=== PATIENT | male | born 1970 | race Caucasian/White ===

== ENCOUNTER 2017-11-13 23:13 | Inpatient (IN) | payer OTHER ==
[2017-11-13] MEDS ORDERED: NS 1,000 ML IV ONE (23:51)
[2017-11-13] MEDS ORDERED: ONDANSETRON 4 MG/2 ML VIAL IVP ONE (23:51)
[2017-11-13 23:57] LABS: PLATELET COUNT 178 10^3/uL (150-400)
[2017-11-14] MEDS ORDERED: FAMOTIDINE 20 MG/2 ML SDV IVP ONE (00:09)
--- NOTE | 2017-11-14 00:28 | EDPHY ---
H & P Stated Complaint: "Severe nausea", vomitin, took probiotic pill then had n/v Time Seen by Provider: 11/13/17 23:40 HPI/ROS: HPI The patient presents with nausea, vomiting, abdominal pain. His nausea began this afternoon after taking a probiotic pill for the 1st time. He then ate dinner and at about 9:00 p.m. Several hours after eating he developed progressive diffuse upper abdominal pain associated with bloating which became quite severe and has now subsided somewhat. After the pain began he had multiple episodes of nonbloody emesis. His symptoms were associated with burping. His last bowel movement was at about 6:00 p.m. And was normal, not dark or bloody. He has no prior history of similar pain. He has started several months ago on a fasting diet in which he does not eat for 2-3 days. He has felt more fatigued than usual and also had calf pain. He had labs performed by his primary care doctor at [facility] which revealed anemia. He has been taking iron, B12 since the diagnosis of anemia. He began taking these probiotics to help with anemia. He also reports cough which is dry and worse at night. He does not have any chest pain. He stopped his fasting diet about 1 week ago. REVIEW OF SYSTEMS Constitutional: No fever, no chills. Eyes: No discharge. ENT: No sore throat. Cardiovascular: No chest pain, no palpitations. Respiratory: Positive cough, no shortness of breath. Gastrointestinal: See HPI Genitourinary: No hematuria. Musculoskeletal: No back pain. Skin: No rashes. Neurological: No headache. PMHx: Anemia, diagnosed a few weeks ago Soc Hx: Here with his partner PHYSICAL General Appearance: Alert, no distress Eyes: Pupils equal and round no pallor or injection ENT, Mouth: Mucous membranes moist Respiratory: There are no retractions, lungs are clear to auscultation Cardiovascular: Regular rate and rhythm , murmurs present Gastrointestinal: Abdomen is soft and mild tenderness in the epigastrium, no masses, bowel sounds normal Neurological: A&O, moves all extremities Skin: Warm and dry, no rashes Musculoskeletal: Neck is supple non tender Extremities: symmetrical, full range of motion Psychiatric: Patient is oriented X 3, there is no agitation Source: Patient Exam Limitations: No limitations - Personal History Current Tetanus Diphtheria and Acellular Pertussis (TDAP): No - Medical/Surgical History Hx Asthma: No Hx Chronic Respiratory Disease: No Hx Diabetes: No Hx Cardiac Disease: No Hx Renal Disease: No Hx Cirrhosis: No Hx Alcoholism: No Hx HIV/AIDS: No Hx Splenectomy or Spleen Trauma: No Other PMH: no immunizations - Social History Smoking Status: Never smoked Constitutional: Initial Vital Signs Temperature (C) 36.8 C 11/13/17 23:15 Heart Rate 73 11/13/17 23:15 Respiratory Rate 20 11/13/17 23:15 Blood Pressure 112/49 L 11/13/17 23:15 O2 Sat (%) 97 11/13/17 23:15 O2 Delivery Mode Room Air Allergies/Adverse Reactions: No Known Allergies Allergy (Unverified 11/13/17 23:14) Medical Decision Making - Diagnostics EKG Interpretation: EKG: Complete interpretation has been separately recorded in the [facility] archive. Summary impression: Normal sinus rhythm with T-wave inversions in lateral leads with leads V2 and V3 with biphasic T-waves. Imaging Results: Imaging Impressions Chest X-Ray 11/14/17 00:08 Impression: Early CHF. Suspect cardiomyopathy. A routine PA and lateral chest would be helpful, if and when the patient is clinically able. Imaging: I viewed and interpreted images myself Procedures: Bedside cardiac limited Ultrasound- performed and interpreted by me. Indication: Cough Findings: Dilated left ventricle with diminished EF, no pericardial effusion, IVC somewhat plethoric, there are no pulmonary B lines bilaterally Impression: Dilated LV with diminished ejection fraction Differential Diagnosis: 46-year-old male, recent diagnosis of anemia, possibly related to fasting diet he has been doing for the last months, now presents with nausea, vomiting, epigastric abdominal pain which is severe. He is feeling better currently. Differential diagnosis includes gastritis, pancreatitis, biliary colic, gastroenteritis, possible side-effect from new probiotic pill In the emergency department, IV line was established and the patient received Zofran. Basic labs were obtained. Labs were unremarkable. The patient felt somewhat better after medications though pain was still moderate in severity. I wrote for additional GI cocktail and famotidine which cause much improvement in his symptoms. A chest x-ray was performed because of his cough at night. This revealed cardiomegaly. Because of this, bedside echo was performed by myself which demonstrated dilated LV with diminished EF. This is concerning for new onset heart failure. Subsequently, BNP was found to be elevated at 3700, troponin was mildly elevated , EKG showed no ST segment change though did have a Wellens type pattern with T- wave inversions in lateral leads. I am not sure that the patient's epigastric pain relates to his new onset CHF. This could be purely incidental. I do not think the epigastric pain is cardiac , as he had epigastric tenderness, improvement with GI cocktail. Given new CHF with positive troponin and abnormal EKG I have consulted with the office administration production line assembler Dr. Prince who will see the patient in consultation later today. He recommends echo be ordered in the morning and to trend patient's troponins. I consulted with the [facility] doctor vivek and discussed the case with Ava, she recommends keeping the patient at the [facility] because of his elevated troponin. The patient was reluctant to be admitted to the hospital. I discussed the diagnosis and treatment plan with him and need for further testing. Eventually he agreed. The case was discussed with Dr. Jarvis who will admit the patient to his service. - Data Points Laboratory Results: Laboratory Results 11/13/17 23:35 11/13/17 23:35 11/14/17 11/13/17 11/13/17 00:00 23:35 23:35 WBC RBC Hgb Hct MCV MCH MCHC RDW Plt Count MPV Neut % (Auto) Lymph % (Auto) [place] % (Auto) Eos % (Auto) Baso % (Auto) Nucleat RBC Rel Count Absolute Neuts (auto) Absolute Lymphs (auto) Absolute Monos (auto) Absolute Eos (auto) Absolute Basos (auto) Absolute Nucleated RBC Immature Gran % Immature Gran # Sodium Potassium Chloride Carbon Dioxide Anion Gap BUN Creatinine Estimated GFR Glucose Calcium Phosphorus 3.9 mg/dL mg/dL (2.5-4.5) Magnesium 2.1 mg/dL mg/dL (1.6-2.3) Total Bilirubin Conjugated Bilirubin Unconjugated Bilirubin AST ALT Alkaline Phosphatase Troponin I 0.062 ng/mL H ng/mL (0.000-0.034) NT-Pro-B Natriuret Pep 3710 pg/mL H pg/mL (0-125) Total Protein Albumin Lipase TSH 2.200 uIU/mL uIU/mL (0.465-4.680) 07/03/18 07/03/18 23:35 23:35 WBC 8.71 10^3/uL 10^3/uL (3.80-9.50) RBC 3.70 10^6/uL L 10^6/uL (4.40-6.38) Hgb 10.6 g/dL L g/dL (13.7-17.5) Hct 31.7 % L % (40.0-51.0) MCV 85.7 fL fL (81.5-99.8) MCH 28.6 pg pg (27.9-34.1) MCHC 33.4 g/dL g/dL (32.4-36.7) RDW 14.6 % % (11.5-15.2) Plt Count 178 10^3/uL 10^3/uL (150-400) MPV 10.9 fL fL (8.7-11.7) Neut % (Auto) 75.3 % H % (39.3-74.2) Lymph % (Auto) 14.9 % L % (15.0-45.0) [place] % (Auto) 8.5 % % (4.5-13.0) Eos % (Auto) 0.7 % % (0.6-7.6) Baso % (Auto) 0.3 % % (0.3-1.7) Nucleat RBC Rel Count 0.0 % % (0.0-0.2) Absolute Neuts (auto) 6.55 10^3/uL H 10^3/uL (1.70-6.50) Absolute Lymphs (auto) 1.30 10^3/uL 10^3/uL (1.00-3.00) Absolute Monos (auto) 0.74 10^3/uL 10^3/uL (0.30-0.80) Absolute Eos (auto) 0.06 10^3/uL 10^3/uL (0.03-0.40) Absolute Basos (auto) 0.03 10^3/uL 10^3/uL (0.02-0.10) Absolute Nucleated RBC 0.00 10^3/uL 10^3/uL (0-0.01) Immature Gran % 0.3 % % (0.0-1.1) Immature Gran # 0.03 10^3/uL 10^3/uL (0.00-0.10) Sodium 136 mEq/L mEq/L (135-145) Potassium 4.2 mEq/L mEq/L (3.3-5.0) Chloride 105 mEq/L mEq/L (97-110) Carbon Dioxide 25 mEq/l mEq/l (22-31) Anion Gap 6 mEq/L L mEq/L (8-16) BUN 18 mg/dL mg/dL (7-23) Creatinine 1.1 mg/dL mg/dL (0.7-1.3) Estimated GFR > 60 Glucose 109 mg/dL H mg/dL (70-100) Calcium 8.7 mg/dL mg/dL (8.5-10.4) Phosphorus Magnesium Total Bilirubin 0.8 mg/dL mg/dL (0.1-1.4) Conjugated Bilirubin 0.4 mg/dL mg/dL (0.0-0.5) Unconjugated Bilirubin 0.4 mg/dL mg/dL (0.0-1.1) AST 21 IU/L IU/L (17-59) ALT 25 IU/L IU/L (21-72) Alkaline Phosphatase 77 IU/L IU/L (38-126) Troponin I NT-Pro-B Natriuret Pep Total Protein 7.0 g/dL g/dL (6.3-8.2) Albumin 3.4 g/dL L g/dL (3.5-5.0) Lipase 116 IU/L IU/L (23-300) TSH Medications Given: Discontinued Medications Al Hydroxide/Mg Hydroxide (Maalox Susp) 30 ml PO EDNOW ONE Stop: 11/14/17 01:26 Last Admin: 11/14/17 01:25 Dose: 30 ml Famotidine (Pepcid) 20 mg IVP EDNOW ONE Stop: 11/14/17 00:10 Last Admin: 11/14/17 00:27 Dose: 20 mg Hyoscyamine Sulfate (Levsin, Hyomax-Sl) 0.25 mg PO EDNOW ONE Stop: 11/14/17 01:24 Last Admin: 11/14/17 01:24 Dose: 0.25 mg Sodium Chloride (Ns) 1,000 mls @ 0 mls/hr IV ONCE ONE PRN Reason: Wide Open Stop: 11/13/17 23:52 Last Admin: 11/13/17 23:56 Dose: 1,000 mls Ketorolac Tromethamine (Toradol) 15 mg IVP EDNOW ONE Stop: 11/14/17 01:21 Last Admin: 11/14/17 01:21 Dose: 15 mg Lidocaine (Lidocaine 2% Viscous) 15 ml PO EDNOW ONE Stop: 11/14/17 01:25 Last Admin: 11/14/17 01:25 Dose: 15 ml Ondansetron HCl (Zofran) 4 mg IVP EDNOW ONE Stop: 11/13/17 23:52 Last Admin: 11/13/17 23:56 Dose: 4 mg Departure - Departure Disposition: [facility] Inpatient Acute Clinical Impression: Epigastric pain, Elevated troponin CHF exacerbation Qualifiers: Heart failure type: unspecified Qualified Code(s): I50.9 - Heart failure, unspecified Condition: Fair
[2017-11-14] MEDS ORDERED: MAG HYDROX/AL HYDROX/SIMETH 30 ML UDCUP ONE (01:20)
[2017-11-14] MEDS ORDERED: KETOROLAC 15 MG/1 ML SDV ONE (01:20)
[2017-11-14] MEDS ORDERED: LIDOCAINE 2% VISCOUS 15 ML UDCUP ONE (01:20)
[2017-11-14] MEDS ORDERED: HYOSCYAMINE SULFATE 0.125 MG TAB ONE (01:20)
[2017-11-14] MEDS ORDERED: KETOROLAC 15 MG/1 ML SDV IVP ONE (01:20)
[2017-11-14] MEDS ORDERED: HYOSCYAMINE SULFATE 0.125 MG TAB PO ONE (01:23)
[2017-11-14] MEDS ORDERED: LIDOCAINE 2% VISCOUS 15 ML UDCUP PO ONE (01:24)
[2017-11-14] MEDS ORDERED: MAG HYDROX/AL HYDROX/SIMETH 30 ML UDCUP PO ONE (01:25)
--- NOTE | 2017-11-14 03:00 | CPEKG ---
Heart Rate: 73 RR Interval: 822 P-R Interval: 236 QRSD Interval: 112 QT Interval: 400 QTC Interval: 441 P [place]: 48 QRS [place]: 1 T Wave [place]: 120 EKG Severity - ABNORMAL ECG - EKG Impression: SINUS RHYTHM EKG Impression: FIRST DEGREE AV BLOCK EKG Impression: NONSPECIFIC INTRAVENTRICULAR CONDUCTION DELAY Electronically Signed By: Devin Higuera 14-Nov-2017 07:41:17
[2017-11-14] MEDS ORDERED: ONDANSETRON DISINTEGRATING 4 MG TAB PO PRN (03:52)
--- NOTE | 2017-11-14 04:39 | PDGENHP ---
History and Physical - Chief Complaint Abdominal pain - History of Present Illness 46 yo M w/ no PMHx presents with abdominal pain. Patient tells me he had acute onset of severe abdominal pain around 4 PM. The pain progressed in severity until about 9 PM when he also began to vomit. He denies similar pain in the past. After arrival in the ED he experienced significant relief from GI cocktail. Work-up in the ED, however, was concerning from a cardiac standpoint. His ECG is abnormal with ST segment abnormalities throughout the precordium as well as interventricular conduction delay. His BNP is elevated and troponin in the indeterminate range. His CXR shows some vascular congestion. He denies prior history of cardiac disease. Upon further conversation it seems he has been undergoing an intensive fasting routine for the last few months. He will fast for 48 or 72 hours at a time with only single meals between fasting spells. Over the last month he has experienced dyspnea on exertion, night sweats, and was recently diagnosed with anemia by his PCP at [place]. He has had a new cough for the last week. Case discussed with ED physician Dr. Scales, no previous records available for review. Dr. Prince of cardiology was notified and will see the patient in the morning. History Information - Allergies/Home Medication List Allergies/Adverse Reactions: No Known Allergies Allergy (Unverified 11/13/17 23:14) I have personally reviewed and updated: family history, medical history - Past Medical History no pertinent PMH - Surgical History Additional surgical history: Denies - Family History Positive for: CAD (Grandfather had multiple FL's) - Social History Smoking Status: Never smoked Review of Systems Review of Systems: ROS: 10pt was reviewed & negative except for what was stated in HPI & below Physical Exam Physical Exam: Temp Pulse Resp BP Pulse Ox 36.8 C 80 16 102/58 L 94 11/13/17 23:15 11/14/17 03:55 11/14/17 03:55 11/14/17 03:55 11/14/17 03:55 Constitutional: no apparent distress, not in pain Eyes: PERRL, EOMI Ears, Nose, Mouth, Throat: moist mucous membranes, no oral mucosal ulcers Cardiovascular: regular rate and rhythym, systolic murmur (2/6 systolic murmur @ RUSB) Respiratory: no respiratory distress, clear to auscultation Gastrointestinal: normoactive bowel sounds, tenderness (Epi-gastric, mild), No guarding, No rebound, No distension Skin: warm, normal color Musculoskeletal: full muscle strength, no muscle tenderness Neurologic: AAOx3, CN II-XII Intact Psychiatric: interacting appropriately, not anxious Lab Data & Imaging Review 11/13/17 23:35 11/13/17 23:35 WBC 8.71 10^3/uL (3.80-9.50) 11/13/17 23:35 RBC 3.70 10^6/uL (4.40-6.38) L 11/13/17 23:35 Hgb 10.6 g/dL (13.7-17.5) L 11/13/17 23:35 Hct 31.7 % (40.0-51.0) L 11/13/17 23:35 MCV 85.7 fL (81.5-99.8) 11/13/17 23:35 MCH 28.6 pg (27.9-34.1) 11/13/17 23:35 MCHC 33.4 g/dL (32.4-36.7) 11/13/17 23:35 RDW 14.6 % (11.5-15.2) 11/13/17 23:35 Plt Count 178 10^3/uL (150-400) 11/13/17 23:35 MPV 10.9 fL (8.7-11.7) 11/13/17 23:35 Neut % (Auto) 75.3 % (39.3-74.2) H 11/13/17 23:35 Lymph % (Auto) 14.9 % (15.0-45.0) L 11/13/17 23:35 [place] % (Auto) 8.5 % (4.5-13.0) 11/13/17 23:35 Eos % (Auto) 0.7 % (0.6-7.6) 11/13/17 23:35 Baso % (Auto) 0.3 % (0.3-1.7) 11/13/17 23:35 Nucleat RBC Rel Count 0.0 % (0.0-0.2) 11/13/17 23:35 Absolute Neuts (auto) 6.55 10^3/uL (1.70-6.50) H 11/13/17 23:35 Absolute Lymphs (auto) 1.30 10^3/uL (1.00-3.00) 11/13/17 23:35 Absolute Monos (auto) 0.74 10^3/uL (0.30-0.80) 11/13/17 23:35 Absolute Eos (auto) 0.06 10^3/uL (0.03-0.40) 11/13/17 23:35 Absolute Basos (auto) 0.03 10^3/uL (0.02-0.10) 11/13/17 23:35 Absolute Nucleated RBC 0.00 10^3/uL (0-0.01) 11/13/17 23:35 Immature Gran % 0.3 % (0.0-1.1) 11/13/17 23:35 Immature Gran # 0.03 10^3/uL (0.00-0.10) 11/13/17 23:35 Sodium 136 mEq/L (135-145) 11/13/17 23:35 Potassium 4.2 mEq/L (3.3-5.0) 11/13/17 23:35 Chloride 105 mEq/L (97-110) 11/13/17 23:35 Carbon Dioxide 25 mEq/l (22-31) 11/13/17 23:35 Anion Gap 6 mEq/L (8-16) L 11/13/17 23:35 BUN 18 mg/dL (7-23) 11/13/17 23:35 Creatinine 1.1 mg/dL (0.7-1.3) 11/13/17 23:35 Estimated GFR > 60 11/13/17 23:35 Glucose 109 mg/dL (70-100) H 11/13/17 23:35 Calcium 8.7 mg/dL (8.5-10.4) 11/13/17 23:35 Magnesium 2.1 mg/dL (1.6-2.3) 11/14/17 00:00 Total Bilirubin 0.8 mg/dL (0.1-1.4) 11/13/17 23:35 Conjugated Bilirubin 0.4 mg/dL (0.0-0.5) 11/13/17 23:35 Unconjugated Bilirubin 0.4 mg/dL (0.0-1.1) 11/13/17 23:35 AST 21 IU/L (17-59) 11/13/17 23:35 ALT 25 IU/L (21-72) 11/13/17 23:35 Alkaline Phosphatase 77 IU/L (38-126) 11/13/17 23:35 Troponin I 0.062 ng/mL (0.000-0.034) H 11/13/17 23:35 NT-Pro-B Natriuret Pep 3710 pg/mL (0-125) H 11/13/17 23:35 Total Protein 7.0 g/dL (6.3-8.2) 11/13/17 23:35 Albumin 3.4 g/dL (3.5-5.0) L 11/13/17 23:35 Lipase 116 IU/L (23-300) 11/13/17 23:35 TSH 2.200 uIU/mL (0.465-4.680) 11/13/17 23:35 Visualized and Interpreted Chest x-ray results: Yes Chest X-Ray results: other (Vascular congestion) Visualized and Interpreted EKG results: Yes EKG Interpretation: Positive for: normal sinsus rhythm, NS ST wave abnormalities , other (IV conduction delay), T waves inversion (Pre-cordial leads) Assessment & Plan Assessment: 46 yo M w/ no PMHx presents with abdominal pain and found to have abnormal cardiac work-up after several months of intensive, intermittent fasting. Plan: 1. Abdominal pain - Severe abdominal pain associated with vomiting and relieved by GI cocktail; suggestive of gastritis/PUD. His abdominal exam is reassuring and LFTs are normal. Noting abnormal cardiac work-up (discussed below), it is also possible this could be an anginal equivalent but this seems less likely. - Will start PPI, cardiac work-up as below 2. Suspected new CHF - Suspected on the basis of 1 month of dyspnea on exertion , elevated BNP, and abnormal ECG. He appears well compensated on exam, however. CXR shows only mild vascular congestion(personally interpreted). This could be related to several months of intensive fasting routine. He also has a systolic murmur on exam, so valvular disease could also be contributing. - TSH normal - TTE ordered for further evaluation - ACS r/o as below - Cardiology service (Dr. Prince) consulted, appreciate assistance 3. Indeterminate troponin - Troponin .062 on admission labs; presenting with abdominal pain but unclear if this could be anginal equivalent. He has an abnormal ECG(personally interpreted) with T wave abnormalities throughout precordial leads and HUGO's in V2/V3 (suspect J point elevation). ECG also shows intraventricular conduction delay. - Admit to PCU - Monitor on telemetry - Trend cardiac enzymes - TTE as above - Cardiology consulted 4. Anemia - Diagnosed by his PCP recently. He has been receiving iron and B12 for this. Diet - NPO Code - Full Ppx - LMWH Dispo - Admit to PCU under observation status
[2017-11-14] MEDS ORDERED: ENOXAPARIN 40 MG/0.4 ML SYR SC SCH (09:00)
[2017-11-14] MEDS ORDERED: PANTOPRAZOLE SODIUM 40 MG TAB PO SCH (09:00)
--- NOTE | 2017-11-14 10:17 | PDCARCONS ---
Cardiology Consult Reason for Consult: Abdominal pain, elevated troponin, elevated brain natriuretic peptide. Chief Complaint: Abdominal pain. Requesting Physician: Dr. Jarvis. 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 He has no history of cardiovascular disease either in the form of ischemic heart disease, structural heart disease or arrhythmic heart disease. He notes that at his baseline he is a very healthy individual. He likes to exercise at least 6 days a week. He does a combination of weight training, running and hiking. He generally feels excellent without complaints. He notes that for about 1 month now he has had symptoms of "drenching" night sweats. These occur, at this point, every night. Sometimes he will need to get up 2 or 3 times to change his clothes. With these, he has not had shaking chills. He has also noted a dry cough which also tends to occur at night although sometimes in the day. There has not been substantial sputum production. Recently he has also had symptoms of exercise intolerance and exertional dyspnea. He is normally able to run on his treadmill nearly on limited. The last time he tried to uses treadmill he was only able to go for about 1/2 mi before he became fatigued and short of breath. He did not have associated chest pain. His heart rate has been higher than normal. Typically his resting heart rate is in the 60s. He has noted that here recently his resting heart rate has been between 75 and 95 beats per minute. He has not had any rash. He has not had any recent surgeries or instrumentation. He gives no history of orthopnea, PND or edema. Since mid August he has been aggressively fasting. Often times he will fast for 48-72 hours at a time. He will then eat for about 4 hr and then resume the cycle. He has been using a great deal of supplements as well as apple cider vinegar during his fasting. He has been trying to maintain hydration. He has lost about 30 lb altogether and currently is near his base weight. He states this has resulted in him feeling really well. He was seen at [facility] ago with severe leg cramps. This was noted in his right leg. Apparently had an ultrasound at that time that was noted to be negative. 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 Apparently, he travels a great deal and has been across the an entire [place] as well as throughout [place]. He has not had any sick contacts. He came to the emergency department yesterday in the early hours of the morning because he developed severe abdominal discomfort. Apparently, he has been trying to come off of his fast and as a result has been trying probiotic therapy to help him as he eats more food. Yesterday during the day he developed nausea. This occurred throughout the day. In the early hours of the morning he developed abrupt abdominal discomfort described as 15/10 in intensity localized to the left upper quadrant. Shortly after this he had significant vomiting. He had no hematemesis. He had no diarrhea or melena. In the emergency department he was hemodynamically stable. His abdominal discomfort improved following the administration of a GI cocktail. Today he has very mild abdominal pain. History Information - Allergies/Home Medication List Allergies/Adverse Reactions: No Known Allergies Allergy (Unverified 11/13/17 23:14) Home Medications: NK [No Known Home Meds] 11/14/17 [Last Taken Unknown] I have personally reviewed and updated: family history, medical history, social history, surgical history Past Medical History: - Past Medical History no pertinent PMH - Surgical History Reports: no pertinent surgical hx - Family History Additional family history: His grandfather apparently had multiple myocardial infarctions and ultimately succumbed to a AAA. - Social History Smoking Status: Never smoked Alcohol Use: Rarely Drug Use: None Additional social history: He is . He is accompanied by his . They have 2 children together 1 who is 18 another who is 15. 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 As stated above, he is very active and exercises at least 6/7 days a week. He does travel a great deal. Physical Exam Physical Exam: Temp Pulse Resp BP Pulse Ox 36.8 C 79 16 117/52 L 96 11/14/17 08:45 11/14/17 08:45 11/14/17 08:45 11/14/17 08:45 11/14/17 08:45 O2 (L/minute) 2 Constitutional: no apparent distress, appears nourished, not in pain Eyes: PERRL, anicteric sclera, EOMI Ears, Nose, Mouth, Throat: moist mucous membranes, hearing normal, ears appear normal, no oral mucosal ulcers Cardiovascular: regular rate and rhythym, diastolic murmur (2/6 holodiastolic murmur heard best at the left sternal border; 2/6 diastolic murmur appreciated at the apex), JVD (To the mid neck at 60 degrees), other (Loud 3rd heart sound) , No edema Respiratory: no respiratory distress, other (Bibasilar fine rales) Gastrointestinal: normoactive bowel sounds, soft, non-tender abdomen, no palpable masses Genitourinary: no bladder fullness, no bladder tenderness Skin: warm, normal color, no fluctuance, no induration, other (He has a small Janeway is lesion appreciated on his right palmar aspect of the middle finger), No mottled Musculoskeletal: full muscle strength, no muscle tenderness, normal joint ROM, no joint effusions Psychiatric: interacting appropriately, not anxious, not encephalopathic, thought process linear Lymph, Heme, Immunologic: no cervical LAD, no supraclavicular LAD Lab and Imaging 11/13/17 23:35 11/13/17 23:35 WBC 8.71 10^3/uL (3.80-9.50) 11/13/17 23:35 RBC 3.70 10^6/uL (4.40-6.38) L 11/13/17 23:35 Hgb 10.6 g/dL (13.7-17.5) L 11/13/17 23:35 Hct 31.7 % (40.0-51.0) L 11/13/17 23:35 MCV 85.7 fL (81.5-99.8) 11/13/17 23:35 MCH 28.6 pg (27.9-34.1) 11/13/17 23:35 MCHC 33.4 g/dL (32.4-36.7) 11/13/17 23:35 RDW 14.6 % (11.5-15.2) 11/13/17 23:35 Plt Count 178 10^3/uL (150-400) 11/13/17 23:35 MPV 10.9 fL (8.7-11.7) 11/13/17 23:35 Neut % (Auto) 75.3 % (39.3-74.2) H 11/13/17 23:35 Lymph % (Auto) 14.9 % (15.0-45.0) L 11/13/17 23:35 Payne % (Auto) 8.5 % (4.5-13.0) 11/13/17 23:35 Eos % (Auto) 0.7 % (0.6-7.6) 11/13/17 23:35 Baso % (Auto) 0.3 % (0.3-1.7) 11/13/17 23:35 Nucleat RBC Rel Count 0.0 % (0.0-0.2) 11/13/17 23:35 Absolute Neuts (auto) 6.55 10^3/uL (1.70-6.50) H 11/13/17 23:35 Absolute Lymphs (auto) 1.30 10^3/uL (1.00-3.00) 11/13/17 23:35 Absolute Monos (auto) 0.74 10^3/uL (0.30-0.80) 11/13/17 23:35 Absolute Eos (auto) 0.06 10^3/uL (0.03-0.40) 11/13/17 23:35 Absolute Basos (auto) 0.03 10^3/uL (0.02-0.10) 11/13/17 23:35 Absolute Nucleated RBC 0.00 10^3/uL (0-0.01) 11/13/17 23:35 Immature Gran % 0.3 % (0.0-1.1) 11/13/17 23:35 Immature Gran # 0.03 10^3/uL (0.00-0.10) 11/13/17 23:35 Sodium 136 mEq/L (135-145) 11/13/17 23:35 Potassium 4.2 mEq/L (3.3-5.0) 11/13/17 23:35 Chloride 105 mEq/L (97-110) 11/13/17 23:35 Carbon Dioxide 25 mEq/l (22-31) 11/13/17 23:35 Anion Gap 6 mEq/L (8-16) L 11/13/17 23:35 BUN 18 mg/dL (7-23) 11/13/17 23:35 Creatinine 1.1 mg/dL (0.7-1.3) 11/13/17 23:35 Estimated GFR > 60 11/13/17 23:35 Glucose 109 mg/dL (70-100) H 11/13/17 23:35 Calcium 8.7 mg/dL (8.5-10.4) 11/13/17 23:35 Phosphorus 3.9 mg/dL (2.5-4.5) 11/13/17 23:35 Magnesium 2.1 mg/dL (1.6-2.3) 11/14/17 00:00 Total Bilirubin 0.8 mg/dL (0.1-1.4) 11/13/17 23:35 Conjugated Bilirubin 0.4 mg/dL (0.0-0.5) 11/13/17 23:35 Unconjugated Bilirubin 0.4 mg/dL (0.0-1.1) 11/13/17 23:35 AST 21 IU/L (17-59) 11/13/17 23:35 ALT 25 IU/L (21-72) 11/13/17 23:35 Alkaline Phosphatase 77 IU/L (38-126) 11/13/17 23:35 Troponin I 0.058 ng/mL (0.000-0.034) H 11/14/17 06:53 NT-Pro-B Natriuret Pep 3710 pg/mL (0-125) H 11/13/17 23:35 Total Protein 7.0 g/dL (6.3-8.2) 11/13/17 23:35 Albumin 3.4 g/dL (3.5-5.0) L 11/13/17 23:35 Lipase 116 IU/L (23-300) 11/13/17 23:35 TSH 2.200 uIU/mL (0.465-4.680) 11/13/17 23:35 Visualized and Interpreted Chest x-ray results: Yes Chest X-ray Interpretation: other (Cardiomegaly with early congestive heart failure) Visualized and Interpreted EKG results: Yes EKG additional interpertation: Normal sinus rhythm, first-degree AV block, nonspecific IVCD, ST/T changes consistent with the IVCD Telemetry: Normal sinus rhythm. Echocardiogram: Pending. A/P Assessment: 46-year-old male who initially came to the emergency department with complaints of relatively abrupt onset left upper quadrant abdominal pain associated with nausea and vomiting. Historically, he states that he has been experiencing a 1 month history of night sweats associated with symptoms of exercise intolerance, cough and dyspnea on exertion. On examination he has findings that suggest significant aortic insufficiency. Additionally, cutaneous findings indicate the presence of a Janeway lesion. Historically, he also states that he has had a diagnosis of anemia however was told that his ferritin levels were elevated. These constellation of findings suggest the probability of endocarditis involving the aortic valve. Fortunately, he appears to be stable with only mild congestive heart failure. His electrocardiogram is, however, concerning given the fact that he has a first-degree AV block and a nonspecific IVCD. These findings may suggest early abscess formation. His abdominal discomfort has improved. I wonder if this might be a result of embolic phenomena to the spleen or potentially kidney. He did have a slight troponin elevation. I think this is a reflection of myocardial strain in the setting of aortic insufficiency. He has no indication of acute ischemia. Plan: 1. He will have an echocardiogram today. 2. We will draw blood cultures. 3. Infectious Disease will be consulted. I suspect that he will be started on antibiotics. 4. I think he would benefit from a CT scan of the abdomen and pelvis to evaluate for embolic phenomena. 5. His anemia will be worked up by the hospitalist care team. I suspect that his anemia is related to the underlying infectious process. Depending on the findings from his workup he may, however, benefit from consultation with GI and consideration of a more formal gastroenterologic evaluation. 6. Daily electrocardiograms will be ordered and he will be monitored on telemetry. 7. I think he would benefit from transesophageal echocardiography. 8. We will plan to consult cardiovascular surgery depending on the results of his echocardiogram. 9. I will start him on a low-dose of oral Lasix and we will follow his electrolytes daily. 10. We will follow along with you. Review of Systems Review of Systems: - Review of Systems Constitutional: see HPI EENTM: no symptoms reported Respiratory: see HPI Cardiac: no symptoms reported Gastrointestinal/Abdominal: see HPI Genitourinary: no symptoms Musculoskelatal: no symptoms Skin: no symptoms Neurological: no symptoms Hematologic/Lymphatic: see HPI Immunologic/allergic: see HPI All Other Systems: Reviewed and Negative
--- NOTE | 2017-11-14 10:44 | ECHO ---
[email or web address] [address] [address] Main: [phone] Fax: Transthoracic Echocardiogram Name: TI CALLAHAN MR#: [id number] Study Date: 11/14/2017 Study Time: 09:23 AM Date of : 1970 Age: 46 year(s) Height: 177.8 cm (70 in.) Weight: 83.92 kg (185 lb.) BSA: 2.02 m2 Gender: Male Examination: Echo Indication: Elevated BNP, Murmur Image Quality: Contrast: Requested by: Gil Clayton BP: 117 mmHg/52 mmHg Heart Rate: Rhythm: Normal sinus rhythm Indication: Elevated BNP, Murmur Procedure Staff Quality Assurance Director: Jude Armenta RDCS Reading Physician: Ti Prince MD Requesting Provider: Conclusions: The patient was in sinus rhythm at the time the study. The left ventricle appears to be mildly dilated and globular in appearance. The ejection fraction is preserved estimated at 60-65%. Wall motion is noted to be normal. The right ventricle and right atrial dimensions are normal. Right ventricular systolic function is normal. There is mild left atrial enlargement. The morphology of the aortic valve is difficult to delineate however may be a bicuspid valve. The anterior leaflet is highly echo bright which may represent calcification or potentially dense vegetation. In some views, this area of echodensity appears to extend into the annulus and may represent abscess formation. There is a small, highly mobile echodensity adherent to the ventricular side of the posterior leaflet likely representing a vegetation. A large Lambl's excrescence cannot be excluded. This is associated with torrential aortic insufficiency. There is no evidence of stenosis. The remainder of the cardiac valves appeared to be structurally normal. There is trivial mitral and tricuspid insufficiency. A small pericardial effusion is present. Measurements: Chambers Valvular Assessment AV/MV Valvular Assessment TV/PV Normal Normal Normal Name Value Range Name Value Range Name Value Range Ao Yudy (2D): 2.3 cm (1.4 cm-2.6 AV meanP mmHg ( - ) PV Vmax: 1.22 m/s (0.6 m/s-0.9 cm) IRAM (VTI): 1.9 cm ( - ) m/s) IVSd (2D): 1.0 cm (0.6 cm-1.1 AR (PHT): 156 ms ( - ) PV PGmax: 6 mmHg ( - ) cm) MV E Vmax: 0.85 m/s ( - ) LVDd (2D): 6.6 cm (4.2 cm-5.9 cm) LVDs (2D): 4.1 cm (2.1 cm-4 cm) LVPWd (2D): 1.0 cm (0.6 cm-1 cm) LVOTd 2.1 cm 2.1 cm mm LVEF (2D): 66 (>=54 %) Patient: TI CALLAHAN Study Date: 11/14/2017 Page 1 of 2 09:23 AM Continued Measurements: Chambers Valvular Assessment AV/MV Name Value Name Value LADs Lon.6 cm AR Vmax: 4.71 cm/s LA Area: 27.2 cm2 AR ERO: 1.750 cm2 LA Volume: 111 ml AR PISA radius: 2.2 cm LA Volume Index: 55.0 ml/m2 AR Reg. Volume: 222.0 ml AR Reg. Fraction: 182 % AR VTI: 127.0 cm Findings: Left Ventricle: Mildly dilated left ventricle. No LV hypertrophy. Normal global systolic LV function. EF is 66 %. No regional wall motion abnormality. Right Ventricle: Normal size right ventricle. Normal RV function. Left Atrium: The left atrium is mildly dilated. Right Atrium: The right atrium is normal in size. Mitral Valve: The mitral valve is normal in appearance and function. Trivial mitral valve regurgitation. Aortic Valve: Cannot rule out bicuspid aortic valve. There is a probable aortic valve vegetation. There is a probable aortic valve abscess. There is torrental aortic insufficiency.. Tricuspid Valve: The tricuspid valve appears normal. Trivial tricuspid valve regurgitation. Pulmonic Valve: The pulmonic valve is normal in appearance and function. Aorta: The aorta is normal. Pericardium: Small pericardial effusion. No echocardiographic evidence of hemodynamic compromise. Exam Comments: A ANAND exam is clinically indicated.. (No Signature Object) Patient: TI CALLAHAN Study Date: 11/14/2017 Page 2 of 2 09:23 AM [id number]
--- NOTE | 2017-11-14 11:47 | ASMTCMCOM ---
CM Note CM Note Notes: Chart reviewed, discussed patient case in rounds. New diagnosis of endocarditis. CVS consulted. Patient to transfer to ICU for closer monitoring. BC sent, CT pending. Spoke with Cha at [facility] [phone] and they are aware of patient's current condition and need for critical care, CM to follow. Plan: TBD Date Signed: 11/14/2017 11:46 AM Electronically Signed By:Pallavi Dove RN
--- NOTE | 2017-11-14 12:16 | HOSPPROG ---
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 Objective: Vital Signs Temp Pulse Resp BP Pulse Ox 36.8 C 79 16 117/52 L 96 11/14/17 08:45 11/14/17 08:45 11/14/17 08:45 11/14/17 08:45 11/14/17 08:45 11/13/17 11/14/17 11/15/17 05:59 05:59 05:59 Intake Total 1000 Output Total 400 Balance 1000 -400 d/w Dr. Prince and Dr. Lopez regarding possible endocarditis Laboratory Tests 11/13/17 11/13/17 11/14/17 23:35 23:35 06:53 WBC 8.71 Hct 31.7 L Plt Count 178 Troponin I 0.062 H 0.058 H NT-Pro-B Natriuret Pep 3710 H ECHO - torrential AI with vegetation - Physical Exam Constitutional: no apparent distress, appears nourished, not in pain Cardiovascular: regular rate and rhythym, systolic murmur, No JVD, No edema Respiratory: no respiratory distress, no rales or rhonchi, clear to auscultation Gastrointestinal: normoactive bowel sounds, soft, non-tender abdomen, no palpable masses Skin: no rashes or abrasions, no fluctuance, no induration Neurologic: AAOx3, sensation intact bilaterally Psychiatric: interacting appropriately, not anxious, not encephalopathic, thought process linear ICD10 Worksheet Patient Problems: Problems Problem Status Onset CHF exacerbation Acute Elevated troponin Acute Epigastric pain Acute
[2017-11-14] MEDS: FUROSEMIDE 20 MG TAB PO SCH (12:29)
[2017-11-14] MEDS ORDERED: VANCOMYCIN 1.25 GM in NS 250 ML IV SCH (12:30)
[2017-11-14] MEDS ORDERED: IOPAMIDOL (ISOVUE-300) 100 ML BTL ONE (13:29)
--- NOTE | 2017-11-14 15:10 | GCON ---
[f rep st] CONSULTATION DATE OF CONSULTATION: 11/14/2017 REFERRING PHYSICIAN: Ti Prince MD NOTE: The patient was seen at the request of Dr. Prince, with the patient's permission. IMPRESSION: Presumed aortic valve endocarditis, with severe aortic insufficiency, class 3 congestive heart failure, and evidence of extension into the annular tissues, with early intraventricular condu ction delay. RECOMMENDATIONS: This gentleman presents with a rather urgent nature, presenting with congestive hea rt failure, with wide-open aortic insufficiency and a presumed bicuspid aortic valve. He does have e vidence of aortic root and ascending aorta enlargement on echocardiogram, and I suspect that he has b icuspid pathologies underlying the disease. He had no known history of this prior to this admission. CT scans of the chest, abdomen, and pelvis are being performed at this time. We will follow his co nduction issues quite closely. Antibiotics have been begun. It is usually better to proceed earlier than later in patients with evidence of perivalvular extension and conduction disturbance. Obviousl y, we do not want to wait until complete heart block or a fistula evolves. I advised him that he wou ld likely end up with a bioprosthesis and a possible homograft, depending upon findings. I have orde red a homograft with an extended aorta in order to replace his ascending aorta if, in fact, that is a t all enlarged, given his aortopathy with bicuspid aortic valve disease. At this young age, I would not put a graft of synthetic material in, and I would not leave him with a moderately enlarged aorta at the time of root replacement if that becomes necessary. I did advise them that the surgical morta lity probably approaches 5% or 6%, that recurrence of infection is around 5%, that stroke is increase d because of the vegetation that is mobile, and that these will be minimized by earlier intervention. His was present, as was his extended family. All questions were addressed. Given his conduct ion issues and presentation in congestive heart failure, I do agree he should be watched in the ICU a nd medically stabilized, and he is not currently stable for transfer. They are in agreement with rosa brewer. His father is a pathologist, and I will speak to him directly. CHIEF COMPLAINT: Approximately 6-week history of febrile illness, with night sweats. HISTORY OF PRESENT ILLNESS: He had been evaluated as an outpatient by his [facility] physicians, who cou ld not explain his elevated ferritin levels, anemia, or night sweats. He has had a 30-pound weight l oss over the last several months, which is intentional by extreme dieting and exercise. He did notic e a decrease in his exercise capacity and actually presented with marked abdominal pain yesterday as his presenting complaint. Echocardiogram reveals a mobile subvalvular mass and what appears to be an nular extension of an abscess cavity, affecting his conduction system. There is no evidence of tricu spid, mitral, or pulmonic valve involvement at this time. Overall, ventricular function is preserved . His medical history is relatively unremarkable. He has no known allergies. He was on no medicati ons. Currently, antibiotics have been begun. 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 His troponin level is slightly elevated. His glucose is slightly elevated. CO 2 was 25. Renal function is well preserved. His white count was normal. Hematocrit was 31.7. PHYSICAL EXAMINATION: GENERAL: An alert, cooperative, calm, middle-aged gentleman, in no apparent d istress. VITAL SIGNS: Blood pressure 120/47, pulse 82, respirations 18, O2 saturation 97% on room a ir. HEENT: Normocephalic. PERRLA. EOMI. NECK: Without bruit, adenopathy, or thyromegaly. Teeth are in good repair. He has no complaints. CARDIOVASCULAR: Heart rate reveals a murmur across the precordium, consistent with diastolic regurgitation. LUNGS: Basilar crackles. ABDOMEN: Soft, nont bacilio. Bowel sounds are active. RECTAL: Deferred. GENITAL: Deferred. NEUROLOGICAL: He is gross ly intact. EXTREMITIES: He has no peripheral edema. No varicosities. LABORATORY STUDIES/DATA: Chest x-ray reveals 4-chamber cardiomegaly, plethoric pulmonary vasculature , with some Luzmaria B lines present. There is no alveolar pulmonary edema or pleural effusions. /[id number]/MODL
--- NOTE | 2017-11-14 15:31 | GCON ---
[f rep st] CONSULTATION DATE OF CONSULTATION: 11/14/2017 REFERRING PHYSICIAN: Krystal Prather MD REASON FOR CONSULTATION: Probable endocarditis with possible valve ring abscess. HISTORY OF PRESENT ILLNESS: The patient is a 46-year-old male without significant past medical history, whom I am asked to see in consultation for probable aortic valve endocarditis with aortic valve ring abscess. The patient describes developing drenching night sweats approximately 4 to 5 weeks ago. This was associated with development of dyspnea on exertion and decreased exercise tolerance. He did not note having fever or chills. Around the same time, he had significant cramps in his right calf, prompting evaluation at an outside facility. The patient notes that he was found to be anemic and have an elevated ferritin at that time. He was advised to have endoscopy. The cramps have now subsequently resolved. He has not experienced lower extremity edema. The patient does describe having a cough at nighttime with clear sputum production. He does not describe orthopnea or PND. The patient has not experienced skin rash, nausea, vomiting or diarrhea. Yesterday, he developed abrupt onset of significant abdominal pain, which ultimately prompted his evaluation in the emergency department. The patient notes that he has been fasting for several weeks where he will not eat for 48 to 72 hours at a time. Subsequently, he will eat and then resume fasting. He has not included enemas as part of his fast. The patient notes that his abdominal pain began yesterday after he took a single dose of probiotics. After development of abdominal pain , he then developed significant vomiting which was uncontrollable. All of these resolved after receiving a "GI cocktail" in the emergency department. Given his dyspnea and decreased exercise tolerance, echocardiogram was performed , which revealed findings consistent with aortic valve endocarditis; these included the possibility of underlying bicuspid aortic valve with possible vegetation on the anterior leaflet, with concern this extends to the anulus and may be consistent with abscess formation; additionally, a mobile echodensity is also present on the posterior leaflet, felt to represent vegetation. He is also noted to have torrential AI. EKG was performed, and shows evidence of intraventricular conduction delay and prolonged NH interval. Based on findings suggestive of endocarditis, blood cultures were obtained, and initiation of empiric antibiotics was begun. The patient does not note any recent dental problems or dental work. He has not had any problems with skin infection. There were some rabbit carcasses on his property, but he did not handle or interact with these. He did attend an event where a petting zoo was present, but he did not interact with the animals, and his night sweats were already in existence. 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 He also has traveled to the [place]. No known prior history of valvular abnormality. Based on the above findings, I am now asked to assist in his ongoing management. PAST MEDICAL HISTORY: Unremarkable. PAST SURGICAL HISTORY: Unremarkable. CURRENT MEDICATIONS: Lasix 20 mg orally daily, vancomycin 1.25 g IV q.12 h., and ceftriaxone 2 g IV daily. ALLERGIES: No known drug allergies. SOCIAL HISTORY: The patient does not smoke. He drinks alcohol occasionally. 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 Travel as outlined above. There is a pet dog at home. The dog was not noted to have any contact with the animal carcasses. FAMILY HISTORY: Cousin with factor V Leiden deficiency; no known history of valvular abnormalities. REVIEW OF SYSTEMS: Outside that noted in the HPI, the remainder of 10-system review is unremarkable except for weight loss. PHYSICAL EXAMINATION: VITAL SIGNS: Temperature 36.8, heart rate 82, respiratory rate 18, blood pressure 120/47, and oxygen saturation 97% on room air. GENERAL: The patient is well nourished, well developed, and in no acute distress. He appears nontoxic. HEENT: There is no scleral icterus, conjunctival injection, or conjunctival petechiae. Oropharynx shows moist mucous membranes, with dentition being in good repair. There is no nasal discharge. There is no tenderness over the frontal, maxillary, or mastoid area. NECK: Supple without palpable lymphadenopathy or thyromegaly. CHEST: Bibasilar crackles. The respiratory effort is normal. CARDIOVASCULAR: Regular rate and rhythm with a 2/4 diastolic murmur heard throughout. No rubs are noted. ABDOMEN: Soft, nontender, and nondistended. There is no palpable organomegaly. Bowel sounds are present. MUSCULOSKELETAL: There is no cyanosis , clubbing, or edema. There is no tenderness over the right calf. SKIN: No rashes noted. There is a small splinter present in the pad of the right third finger; I do not appreciate stigmata of endocarditis otherwise. There are no splinter hemorrhages, Janeway lesions, or Osler nodes. LYMPHATICS: No cervical or supraclavicular nodes. NEUROLOGIC: The patient is alert and interacts appropriately with the examiner. Cranial nerves 2 through 12 are grossly intact. Muscle tone and bulk are normal. Sensation is grossly intact. LABORATORY DATA: White blood cell count 8.7, hematocrit 31.7, platelets 178, neutrophils 75%, lymphocytes 15%, and MCV 86. Serum creatinine is 1.1. AST 21, ALT 25, bilirubin 0.8, alkaline phosphatase 77, and albumin 3.4. TSH 2.2. Troponin 0.58. Blood cultures x3 sets are pending. Echocardiogram as outlined above. EKG as outlined above. Chest x-ray shows increased vascular markings. IMPRESSION: Endocarditis of the aortic valve with possible valve ring abscess: Clinical findings are consistent with subacute bacterial endocarditis. Suspect the patient has underlying bicuspid aortic valve, with most likely etiology given subacute presentation being oropharyngeal lauren such as Streptococcus viridans species. Less likely would be related to Staphylococcus aureus or beta-hemolytic streptococci, which typically present in more acute fashion. Enterococcus would also be a consideration based on the patient's previous decreased iron level with potential for gastrointestinal source. HACEK organisms also consideration. Pathogens associated with culture negative endocarditis seem less likely. Abdominal symptoms of yesterday could potentially be related to embolic phenomena for which CT scan has been ordered. RECOMMENDATIONS: 1. Increase vancomycin 1.5 g IV q.12 h. 2. Continue ceftriaxone 2 g IV daily. 3. Follow up blood cultures as available. 4. Agree with plans for CT of abdomen and pelvis. 5. CT Surgery consultation given likelihood the patient may require surgical management, particularly if valve ring abscess is present. 6. Await transesophageal echocardiogram to further define transthoracic echocardiographic findings. 7. Clinical findings and plan discussed with the patient, family, and Dr. Franklin. Thank you for this consultation. We will continue to follow the patient with you. /[id number]/MODL MTDD
--- NOTE | 2017-11-14 16:50 | GCON ---
[f rep st] CONSULTATION CRITICAL CARE CONSULTATION. DATE OF CONSULTATION: 11/14/2017 HISTORY OF PRESENT ILLNESS: This patient is a 46-year-old male with no past medical history, who pre sents to the emergency department earlier this morning with abdominal pain. He does travel some, but has not had no history of venous thromboembolic disease in the past. He was recently diagnosed with iron deficiency anemia, but apparently his ferritin was quite high and no obvious cause was delineat ed. He was to get a GI followup, but that had yet to occur. He said he has been exercising fairly r egularly over the past 4 weeks after the anemia was diagnosed, until he developed this pain. He subs equently came to the emergency department. He has also been experiencing worsening exertional dyspne a, as well as night sweats and had a new cough that was generally nonproductive. He was found to hav e aortic valve vegetations and ring abscess on echocardiogram, and is thought to have endocarditis. He has also had issues of conduction delay and was therefore transferred to the intensive care unit f or closer monitoring. Blood cultures are pending at this time. His workup also included a chest CT scan that said there was a small area of infiltrate in the anterior segment of the right lower lobe w ith surrounding infiltrate suggestive of possible septic emboli, though the rest of his echo was norm al on the right side. He does not have any other history that would be consistent with endocarditis, such as trauma or skin abrasions or recent dental work or IV drug use. Otherwise, is stable. PAST MEDICAL HISTORY: As described above. PAST SURGICAL HISTORY: None. SOCIAL HISTORY: He is a nonsmoker. No alcohol or IV drug use. FAMILY HISTORY: Noncontributory at this time, including lack of a bicuspid aortic valve. MEDICATIONS: Currently include: Ceftriaxone, 20 mg Lasix daily, Zofran, vancomycin, and Tylenol. PHYSICAL EXAM: VITAL SIGNS: Blood pressure 125/53, heart rate 82 and looks like normal sinus rhythm , respirations 21, oxygen saturation 96% on room air. GENERAL: He is very pleasant man in no appare nt distress and able to speak in full sentences without using accessory muscles for breathing. HEENT: Pupils equally round and reactive to light, nonicteric and noninjected. Mucous membranes moist wit hout erythema or exudate. NECK: Supple without adenopathy or jugular vein distention. LUNGS: [place] th sounds revealed minor bilateral basilar crackles, right greater than left. HEART: Regular rate a nd rhythm with a 3/6 what appeared to be diastolic murmur. ABDOMEN: Soft, nontender, nondistended w ithout hepatosplenomegaly. EXTREMITIES: No clubbing, cyanosis, or edema. There are no calf tenderne ss. No evidence of distal endocarditis sequela. NEUROLOGICAL: Nonfocal including cranial nerves, de ep tendon reflexes. OBJECTIVE DATA: Includes: Echocardiogram with an ejection fraction of 60% to 65% with a possible de nse vegetation versus calcification on the anterior leaflet of the aortic valve. There may also be a bscess in this area. There is a small highly mobile density adherent to the posterior leaflet as wel l, and a small pericardial effusion. CT scan is as above. His white count was normal at 8.7, hematocrit 31, and platelets 178. Basic metabolic panel is comple tely normal, as are his LFTs. Troponin was 0.062 down to 0.058 over the course of the past 2 days. Albumin 3.4. ASSESSMENT/PLAN: What sounds to be probable endocarditis based on the echocardiogram findings. Bloo d cultures are pending at this time. Procalcitonin is pending at this time. His BNP is 37[facility] at a [facility], and he is going to be evaluated by transesophageal echocardiogram. He has been evaluated by Dr. Rigoberto hughes, who may ultimately end up doing a valve surgery, as well as aortic root grafting depend ing on his clinical course. He shows no signs of overt heart failure at this moment and is clinicall y stable, but we will continue to follow closely naturally. /[id number]/MODL
[2017-11-14] MEDS ORDERED: FUROSEMIDE 20 MG/2 ML VIAL ONE (18:41)
[2017-11-14] MEDS: ONDANSETRON 4 MG/2 ML VIAL IVP PRN (18:50)
[2017-11-14] MEDS ORDERED: FUROSEMIDE 20 MG/2 ML VIAL IVP ONE (19:00)
[2017-11-14] MEDS ORDERED: CHLORHEXIDINE GLUC HIBICLENS 118 ML BTL TP SCH (21:00)
--- NOTE | 2017-11-14 23:09 | CPEKG ---
Heart Rate: 80 RR Interval: 750 P-R Interval: 220 QRSD Interval: 114 QT Interval: 396 QTC Interval: 457 P [place]: 43 QRS [place]: -2 T Wave [place]: 133 EKG Severity - ABNORMAL ECG - EKG Impression: SINUS RHYTHM EKG Impression: FIRST DEGREE AV BLOCK EKG Impression: NONSPECIFIC INTRAVENTRICULAR CONDUCTION DELAY EKG Impression: PROBABLE LVH WITH SECONDARY REPOL ABNRM Electronically Signed By: Medina Scales 15-Nov-2017 07:45:24
[2017-11-14] MEDS ORDERED: ZOLPIDEM TARTRATE 5 MG TAB PO SCH (23:30)
[2017-11-14] MEDS: VANCOMYCIN 1.5 GM in NS 250 ML IV SCH (23:39)
[2017-11-15] MEDS ORDERED: NS 1,000 ML IV ONE (06:00)
[2017-11-15] MEDS ORDERED: CITRATE DEXTROSE SOLN 500 ML BAG MISC ONE (06:00)
[2017-11-15] MEDS ORDERED: INSULIN REGULAR HUMAN 100 UNIT in NS 100 ML IV ONE (06:00)
[2017-11-15] MEDS ORDERED: NOREPINEPHRINE BITARTRATE 16 MG in NS 250 ML IV ONE (06:00)
[2017-11-15] MEDS ORDERED: MANNITOL 25% 12.5 GM/50 ML VIAL IVP ONE (06:00)
[2017-11-15] MEDS ORDERED: SODIUM BICARBONATE 20 MEQ, LIDOCAINE 1% 10 ML in NORMOSOL-R 1,000 ML MISC ONE (06:00)
[2017-11-15] MEDS ORDERED: niCARdipine/NACL 200 ML IV ONE (06:00)
[2017-11-15] MEDS ORDERED: PHENYLEPHRINE HCL 50 MG in NS 250 ML IV ONE (06:00)
[2017-11-15] MEDS ORDERED: AMINOCAPROIC ACID 5 GM/20 ML VIAL IV ONE (06:00)
[2017-11-15 07:14] LABS: PLATELET COUNT 208 10^3/uL (150-400)
[2017-11-15] MEDS ORDERED: PROPOFOL 200 MG/20 ML VIAL ONE ×5 (08:55→17:49)
--- NOTE | 2017-11-15 08:58 | PDANEPAE ---
ANE History of Present Illness ANAND ANE Past Medical History - Pulmonary History Hx Oxygen in Use at Home: No Hx Sleep Apnea: No - Endocrine History Hx Diabetes: No - Chronic Pain History Chronic Pain: No ANE Review of Systems Review of Systems: ANE Patient History - Allergies Allergies/Adverse Reactions: No Known Allergies Allergy (Unverified 11/13/17 23:14) - Home Medications Home Medications: NK [No Known Home Meds] 11/14/17 [Last Taken Unknown] - Smoking Hx Smoking Status: Never smoked - Alcohol Use Alcohol Use: Rarely ANE Labs/Vital Signs - Labs Result Diagrams: 11/15/17 06:45 11/15/17 06:45 - Vital Signs Blood Pressure: 122/52 Heart Rate: 85 Respiratory Rate: 18 O2 Sat (%): 92 Height: 177.8 cm Weight: 83.915 kg
--- NOTE | 2017-11-15 09:27 | PDANEPAE ---
ANE History of Present Illness new onset AI ANE Past Medical History - Cardiovascular History Hx Hypertension: No Hx Arrhythmias: No Hx Chest Pain: No Hx Coronary Artery / Peripheral Vascular Disease: No Hx CHF / Valvular Disease: Yes Hx Palpitations: No - Pulmonary History Hx COPD: No Hx Asthma/Reactive Airway Disease: No Hx Recent Upper Respiratory Infection: No Hx Oxygen in Use at Home: No Hx Sleep Apnea: No - Endocrine History Hx Diabetes: No Obesity: no - Chronic Pain History Chronic Pain: No ANE Review of Systems Review of systems is: negative Review of Systems: - Exercise capacity Exercise capacity: >=4 METS ANE Patient History - Allergies Allergies/Adverse Reactions: No Known Allergies Allergy (Unverified 11/13/17 23:14) - Home Medications Home medications: home medication list seen and reviewed Home Medications: NK [No Known Home Meds] 11/14/17 [Last Taken Unknown] - Anes Hx Anes Hx: no prior problems - Smoking Hx Smoking Status: Never smoked - Alcohol Use Alcohol Use: Rarely ANE Labs/Vital Signs - Labs Result Diagrams: 11/15/17 06:45 11/15/17 06:45 - Vital Signs Blood Pressure: 122/52 Heart Rate: 85 Respiratory Rate: 18 O2 Sat (%): 92 Height: 177.8 cm Weight: 83.915 kg ANE Physical Exam - Airway Neck exam: FROM Mallampati Score: Class 1 Mouth exam: normal dental/mouth exam - Pulmonary Pulmonary: no respiratory distress - Cardiovascular Cardiovascular: regular rate and rhythym - ASA Status ASA Status: II ANE Anesthesia Plan Anesthesia Plan: GA with mask
[2017-11-15] MEDS: MUPIROCIN 2% 22 GM OINT NS ONE ×2 (09:50→11:48)
[2017-11-15] MEDS ORDERED: FUROSEMIDE 20 MG/2 ML VIAL ONE (09:57)
--- NOTE | 2017-11-15 09:57 | PDMN ---
Medical Necessity Medical necessity: MCG; M334 infective endocarditis 5 days; Dg of poss infective endocarditis with severe aortic insufficiency, class 3 CHF, and evidence of extension into the annular tissues, with early intraventricular conduction delay. poss. valve ring abscess. sgy pending
[2017-11-15] MEDS: FUROSEMIDE 20 MG TAB PO SCH (09:58)
--- NOTE | 2017-11-15 10:03 | CPEKG ---
Heart Rate: 76 RR Interval: 789 P-R Interval: 200 QRSD Interval: 112 QT Interval: 420 QTC Interval: 473 P [place]: 21 QRS [place]: 4 T Wave [place]: 115 EKG Severity - ABNORMAL ECG - EKG Impression: SINUS RHYTHM EKG Impression: NONSPECIFIC INTRAVENTRICULAR CONDUCTION DELAY EKG Impression: PROBABLE ANTEROSEPTAL INFARCT, AGE INDETERM Electronically Signed By: Austin Mariee 22-Nov-2017 21:22:42
[2017-11-15] MEDS ORDERED: CALCIUM CHLORIDE 1 GM/10 ML INJ ONE ×2 (10:07→10:12)
[2017-11-15] MEDS ORDERED: MILRINONE/DEXTROSE/100 ML BAG IV ONE (10:07)
[2017-11-15] MEDS ORDERED: PROTAMINE SULFATE 50 MG/5 ML VIAL IVP ONE (10:07)
[2017-11-15] MEDS ORDERED: niCARdipine/NACL/200 ML BAG IV ONE ×2 (10:08→16:58)
[2017-11-15] MEDS ORDERED: NA BICARBONATE 50 MEQ/50 ML VIAL ONE (10:08)
[2017-11-15] MEDS ORDERED: DOPamine/DEXTROSE 400 MG/250 ML BAG IV ONE (10:08)
[2017-11-15] MEDS ORDERED: HEPARIN 10,000 UNIT/10 ML MDV (1,000 UNIT/ML) ONE ×2 (10:08→10:13)
[2017-11-15] MEDS ORDERED: ADENOSINE 6 MG/2 ML VIAL ONE (10:09)
[2017-11-15] MEDS ORDERED: ceFAZolin 1 GM VIAL ONE (10:09)
[2017-11-15] MEDS ORDERED: NITROGLYCERIN/D5W 50 MG/250 ML BOTTLE IV ONE (10:09)
[2017-11-15] MEDS ORDERED: AMIODARONE HCL 150 MG/3 ML VIAL ONE ×2 (10:09→10:13)
[2017-11-15] MEDS ORDERED: ALBUMIN 5% 250 ML BOTTLE IV ONE ×2 (10:10→16:57)
[2017-11-15] MEDS ORDERED: MAGNESIUM SULFATE 1 GM/2 ML VIAL ONE (10:13)
[2017-11-15] MEDS ORDERED: LIDOCAINE 2% 100 MG/5 ML SYR ONE (10:13)
[2017-11-15] MEDS ORDERED: CITRATE DEXTROSE SOLN 500 ML BAG ONE (10:13)
[2017-11-15] MEDS ORDERED: methylPREDNISolone SOD SUCC 1 GM/8 ML VIAL ONE (10:14)
[2017-11-15] MEDS ORDERED: MINERAL OIL 10 ML VIAL ONE (10:14)
--- NOTE | 2017-11-15 10:45 | POSTANESTH ---
Post Anesthetic Evaluation Cardiovascular Status: Normal, Stable Respiratory Status: Normal, Stable Level of Consciousness/Mental Status: Can Participate in Eval, Mildly Sleepy, Arousable Pain Control: Adequate, Prn Tx Ordered Nausea/Vomiting Control: Adequate, Prn Tx Ordered Complications Possibly Related to Anesthesia: None Noted
--- NOTE | 2017-11-15 10:56 | PDANEPAE ---
ANE History of Present Illness here for AVR/root ANE Past Medical History - Cardiovascular History Hx Hypertension: No Hx Arrhythmias: No Hx Chest Pain: No Hx Coronary Artery / Peripheral Vascular Disease: No Hx CHF / Valvular Disease: Yes Hx Palpitations: No - Pulmonary History Hx COPD: No Hx Asthma/Reactive Airway Disease: No Hx Recent Upper Respiratory Infection: No Hx Oxygen in Use at Home: No Hx Sleep Apnea: No - Endocrine History Hx Diabetes: No Obesity: no - Chronic Pain History Chronic Pain: No ANE Review of Systems Review of systems is: negative Review of Systems: - Exercise capacity Exercise capacity: >=4 METS ANE Patient History - Allergies Allergies/Adverse Reactions: No Known Allergies Allergy (Unverified 11/13/17 23:14) - Home Medications Home medications: home medication list seen and reviewed Home Medications: NK [No Known Home Meds] 11/14/17 [Last Taken Unknown] - NPO status NPO Status: no food or drink >8 hours - Anes Hx Anes Hx: no prior problems - Smoking Hx Smoking Status: Never smoked - Alcohol Use Alcohol Use: Rarely ANE Labs/Vital Signs - Labs Result Diagrams: 11/15/17 06:45 11/15/17 06:45 - Vital Signs Vital Signs: reviewed preoperatively; see RN documention for details Blood Pressure: 122/52 Heart Rate: 85 Respiratory Rate: 18 O2 Sat (%): 92 Height: 177.8 cm Weight: 83.915 kg ANE Physical Exam - Airway Neck exam: FROM Mallampati Score: Class 1 - Pulmonary Pulmonary: no respiratory distress - Cardiovascular Cardiovascular: regular rate and rhythym - ASA Status ASA Status: III ANE Anesthesia Plan Anesthesia Plan: general endotracheal anesthesia Lines/Monitors: arterial line, central line, ANAND
--- NOTE | 2017-11-15 11:16 | ECHO ---
[email or web address] [id number] Main: [phone] Fax: Transesophageal Echocardiography Name: ALISSON CALLAHAN MR#: [id number] Study Date: 11/15/2017 Study Time: 09:21 AM Date of : 1970 Age: 46 year(s) Height: ( ) Weight: ( ) BSA: Gender: Male Examination: ANAND Indication: Aortic Insufficiency Image Quality: Contrast: Requested by: Alisson Prince Heart Rate: Rhythm: BP: / Procedure Staff Benzol Operator: Jude Armenta RDCS Reading Physician: Alisson Prince MD Requesting Provider: ANAND Exam Details Conclusions: Mildly dilated left ventricle. Normal global systolic LV function. The left atrium is normal in size. An agitated saline study was performed and was negative for intracardiac shunting. The mitral valve is normal in appearance. Trivial mitral valve regurgitation. The tricuspid valve is normal in appearance and function. The pulmonic valve is normal in appearance and function. The aortic valve is bicuspid. There is fusion of the right and left coronary cusps. The resultant valve leaflet is calcified with decreased mobility during systole. The residual non coronary cusp appears to be flail and has a linear mobile echodensity associated with the consistent with a vegetation. Additionally, this leaflet appears to be perforated. There is an echo-free space adjacent to the non coronary cusp likely representing a root abscess. This is associated with torrential aortic insufficiency. Measurements: Chambers Valvular Assessment AV/MV Valvular Assessment TV/PV Normal Normal Normal Name Value Range Name Value Range Name Value Range Additional Measurements: Patient: ALISSON CALLAHAN Study Date: 11/15/2017 Page 1 of 2 09:21 AM Findings: Left Ventricle: Mildly dilated left ventricle. Normal global systolic LV function. Right Ventricle: Normal size right ventricle. Left Atrium: The left atrium is normal in size. An agitated saline study was performed and was negative for intracardiac shunting. Left Atrial Appendage: Good color flow doppler in the left atrial appendage. No thrombus in left appendage. Right Atrium: The right atrium is normal in size. Mitral Valve: The mitral valve is normal in appearance. Trivial mitral valve regurgitation. Aortic Valve: Bicuspid aortic valve. There is an aortic valve abscess. There is a vegetation on the non-coronary cusp of the aortic valve. There is moderate to severe calcification of the left and right coronary cusps. There is torrential aortic insufficiency. The AI jet is against the mitral valve leaflet in diastole.. Tricuspid Valve: The tricuspid valve is normal in appearance and function. Pulmonic Valve: The pulmonic valve is normal in appearance and function. Aorta: The aorta is normal. Pericardium: Small pericardial effusion. l1n (No Signature Object) Patient: ALISSON CALLAHAN Study Date: 11/15/2017 Page 2 of 2 09:21 AM [id number]
[2017-11-15] MEDS ORDERED: MUPIROCIN 2% 22 GM OINT ONE (11:36)
[2017-11-15] MEDS ORDERED: CHLORHEXIDINE GLUC HIBICLENS 118 ML BTL TP ONE (11:46)
[2017-11-15] MEDS ORDERED: FUROSEMIDE 20 MG/2 ML VIAL IV ONE (12:15)
[2017-11-15] MEDS ORDERED: PROPOFOL/EMULSION 500 MG/50 ML BOTTLE IV ONE (12:55)
[2017-11-15] MEDS ORDERED: ROCURONIUM 100 MG/10 ML VIAL ONE (12:59)
[2017-11-15] MEDS ORDERED: CEFAZOLIN 2 GM/DEXTROSE/100 ML BAG IV ONE (13:00)
[2017-11-15] MEDS ORDERED: fentaNYL 250 MCG/5 ML INJ ONE (13:00)
[2017-11-15] MEDS ORDERED: DEXAMETHASONE 4 MG/ML VIAL ONE ×2 (13:01)
[2017-11-15] MEDS ORDERED: MIDAZOLAM 2 MG/2 ML VIAL ONE (13:03)
[2017-11-15] MEDS ORDERED: KETAMINE 500 MG/10 ML VIAL ONE (13:03)
[2017-11-15] MEDS: MIDAZOLAM 2 MG/2 ML VIAL IVP ONE ×2 (13:08→15:04)
[2017-11-15] MEDS ORDERED: PHENYLEPHRINE HCL 100 MCG/ML SYR ONE (13:12)
[2017-11-15] MEDS: VANCOMYCIN 1.5 GM in NS 250 ML IV SCH ×2 (13:21→15:18)
[2017-11-15 13:46] LABS: HIV TYPE 1 AND 2 NEGATIVE (NEGATIVE)
[2017-11-15] MEDS ORDERED: HYDROmorphONE/DILAUDID 2 MG/ML INJ ONE (13:59)
[2017-11-15] MEDS ORDERED: DEXMEDETOMIDINE IN 0.9 % NACL 100 ML IV ONE (15:00)
--- NOTE | 2017-11-15 15:09 | HOSPPROG ---
Hospitalist Progress Note Assessment/Plan: * Probable endocarditis -valve vegetation with adam-valvular abscess -BC x 3 pending -empiric IV Vanco + IV Ceftriaxone * Conduction abnormality -needs close observation for progression of adam-valvular abscess * Anemia -iron studies c/w chronic disease * Torrential AI - bicuspid aortic valve * Mild CHF -PO lasix Patient went to OR prior to my visit. Will check in tomorrow. Objective: Vital Signs Temp Pulse Resp BP Pulse Ox 37.4 C 85 18 122/52 H 92 11/15/17 11:13 11/15/17 12:44 11/15/17 12:44 11/15/17 12:44 11/15/17 12:44 Laboratory Results 11/15/17 06:45 11/15/17 06:45 11/14/17 11/15/17 11/16/17 05:59 05:59 05:59 Intake Total 1000 2171 Output Total 450 Balance 1000 1721 ICD10 Worksheet Patient Problems: Problems Problem Status Onset CHF exacerbation Acute Elevated troponin Acute Epigastric pain Acute
--- NOTE | 2017-11-15 15:44 | PDINTPN ---
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 Admitted / with abdominal and calf pain and found to have vegetations and wide open AR on echo. No recent dental work, trauma, skin wounds, surgery, etc. Blood cultures initially negative, but evaluated by CT surgery and planning AVR with Aortic root graft. Intermittent heart block also reported * endocarditis- unclear source at the moment, though intraoperative culture data will likely be helpful. No arrythmias seen in ICU. Procalcitonin was relatively low for active bacterial infectionb. * CHF 2/2 above. Baseline BNP 3700 * Abnormal chest CT- the ground glass infiltrate in the sup seg RLL is unlikely a septic emboli since his disease is focused on the aortic valve. Not clear what this represents at the moment. will discuss with team. * 11/15/17 15:44 Subjective: feels well- no sob, palpitations, cp Objective: Vital Signs Temp Pulse Resp BP Pulse Ox 37.4 C 85 18 122/52 H 92 11/15/17 11:13 11/15/17 12:44 11/15/17 12:44 11/15/17 12:44 11/15/17 12:44 Laboratory Results 11/15/17 06:45 11/15/17 06:45 11/14/17 11/15/17 11/16/17 05:59 05:59 05:59 Intake Total 1000 2171 Output Total 450 Balance 1000 1721 Physical Exam - Physical Exam General Appearance: WD/WN, alert, no apparent distress EENT: PERRL/EOMI Neck: supple Respiratory: normal breath sounds, rales (mild in RLL), No respiratory distress , No accessory muscle use Cardiac/Chest: regular rate, rhythm, diastolic murmur, systolic murmur, No edema Abdomen: non-tender, soft, No distended Skin: normal color, warm/dry, No cyanosis, No jaundice, No rash, No signs of IVDA Lymphatic: no adenopathy Extremities: non-tender, normal inspection, No pedal edema Neuro/Psych: alert, normal mood/affect, oriented x 3 ICD10 Worksheet Patient Problems: Problems Problem Status Onset CHF exacerbation Acute Elevated troponin Acute Epigastric pain Acute
[2017-11-15] MEDS ORDERED: ePHEDrine SULFATE 25 MG/5 ML SYR ONE (17:42)
[2017-11-15] MEDS ORDERED: fentaNYL 100 MCG/2 ML INJ IVP PRN (18:11)
[2017-11-15] MEDS ORDERED: ACETAMINOPHEN 650 MG SUPP PR PRN (18:11)
[2017-11-15] MEDS ORDERED: MEPERIDINE 25 MG/0.5 ML AMP IVP PRN (18:11)
[2017-11-15] MEDS ORDERED: LACTULOSE 20 GM/30 ML UDCUP PO PRN (18:11)
[2017-11-15] MEDS ORDERED: MAGNESIUM HYDROXIDE 30 ML UDCUP PO PRN (18:11)
[2017-11-15] MEDS ORDERED: D50W 25 GM/50 ML SYR IVP PRN (18:11)
[2017-11-15] MEDS ORDERED: POLYETHYLENE GLYCOL 3350 17 GM PKT PO PRN (18:11)
[2017-11-15] MEDS ORDERED: METOCLOPRAMIDE 10 MG/2 ML VIAL IVP PRN (18:11)
[2017-11-15] MEDS ORDERED: CEPACOL LOZENGE PO PRN (18:11)
[2017-11-15] MEDS ORDERED: PANTOPRAZOLE SODIUM 40 MG VIAL IVP ONE (18:11)
[2017-11-15] MEDS ORDERED: POTASSIUM Cl (KCl) 50 ML IV PRN (18:11)
[2017-11-15] MEDS ORDERED: SODIUM CL NASAL 45 ML BTL EACHNARE PRN (18:11)
[2017-11-15] MEDS ORDERED: BISACODYL 10 MG SUPP PR PRN (18:11)
[2017-11-15] MEDS ORDERED: NS 1,000 ML IV SCH (18:15)
[2017-11-15] MEDS ORDERED: INSULIN REGULAR HUMAN 100 UNIT in NS 100 ML IV SCH (18:30)
[2017-11-15] MEDS ORDERED: niCARdipine/NACL 200 ML IV SCH (18:30)
--- NOTE | 2017-11-15 18:37 | CPEKG ---
Heart Rate: 59 RR Interval: 1017 P-R Interval: 200 QRSD Interval: 116 QT Interval: 500 QTC Interval: 496 P [place]: 23 QRS [place]: 45 T Wave [place]: 83 EKG Severity - ABNORMAL ECG - EKG Impression: SINUS RHYTHM EKG Impression: NONSPECIFIC INTRAVENTRICULAR CONDUCTION DELAY EKG Impression: CONSIDER ANTEROSEPTAL INFARCT Electronically Signed By: Austin Mariee 22-Nov-2017 21:22:30
--- NOTE | 2017-11-15 18:47 | POSTANESTH ---
Post Anesthetic Evaluation Cardiovascular Status: Normal, Stable, Tx Hyper/Hypo-tension (dopamine gtt) Respiratory Status: Normal, Stable, Requires Airway Assist (intubated and sedated) Level of Consciousness/Mental Status: Unconscious Pain Control: Adequate, Prn Tx Ordered Nausea/Vomiting Control: Adequate, Prn Tx Ordered Complications Possibly Related to Anesthesia: None Noted
--- NOTE | 2017-11-15 18:51 | GOP ---
[f rep st] OPERATIVE REPORT DATE OF OPERATION: 11/15/2017 SURGEON: Austin Franklin DO BOLT SORTER: Lois Jenkins, PAC. ANESTHESIOLOGIST: Jorge A Roman MD PREOPERATIVE DIAGNOSIS: Subacute bacterial endocarditis with severe aortic insufficiency and perival vular abscess with a class 3-4 congestive heart failure. POSTOPERATIVE DIAGNOSIS: Subacute bacterial endocarditis with severe aortic insufficiency and periva lvular abscess with a class 3-4 congestive heart failure. PROCEDURE PERFORMED: 1. Urgent aortic root replacement with a #24 homograft. 2. Replace the ascending aorta with homograft. 3. Debride and repair annular abscess. 4. Ligate left atrial appendage. FINDINGS: The patient presented with evidence of likely embolic abdominal event which was clinically insignificant. He was presumed to have endocarditis based on vegetations, echo, and history of nigh t sweats. He was found to have wide-open aortic insufficiency with congestive heart failure on admis jami remaining symptomatic up until time of surgery with pulmonary edema and persistent cough. The l eft ventricle was markedly dilated. He was noted to have bicuspid aortic valve with torrential aorti c insufficiency and a 4.2 cm ascending aorta on CT scan. He was consented for urgent surgery. Becau se of his aortic pathology, a homograft extension was ordered which included the arch. DESCRIPTION OF PROCEDURE: He was brought to the operating room, intubated. Monitoring lines were pl aced. He was prepped and draped in a sterile classical manner. Sternotomy was performed. He was he parinized, cannulated in the transverse arch and right atrium with cannulas into both superior and in ferior vena cava. Cardiopulmonary bypass was begun. The aorta was crossclamped. Retrograde cardiop legia was administered. Aortotomy was open, and subsequently, antegrade cardioplegia was administere d. This was performed throughout the procedure. We then placed a left ventricular sump through the right superior pulmonary vein. The aorta was excised from the base of the innominate where the trans verse arch began and measured 3 cm and down to the coronary ostia. The coronary ostia were developed as buttons. We then excised a fused [id number] commissure with calcification with no evidence of infection there. The noncoronary cusp had evidence of a 2 cm perforation and dehiscence along the a nulus with an abscess that, once the valve was removed, revealed separation of the anterior leaflet o f mitral valve from the aorta and an abscess cavity eroding down onto the dome of the left atrium. T his cavity was aggressively debrided down to healthy bleeding tissue. We then placed a bovine perica rdial patch on the inflow side of the valve and use 3-0 Prolene interrupted sutures along the noncoro nary sinus, going deep and reapproximating that cavity. These were then placed through a homograft w hich had been dissected and debulked. We then used interrupted 2-0 Tycron sutures throughout the rig ht and left coronary sinuses, and placed those through the homograft. These were tied down over a pi jelani of bovine pericardium. BioGlue was applied externally. We then excised the homograft coronary b uttons and reimplanted the left and right coronary arteries with continuous running 5-0 Prolene witho ut difficulty. These were done without tension and after proper measuring. We then transected the a erika of the homograft. We then excised all the abnormal aortic tissue up to the crossclamp at the ba se of the innominate artery and did an end-to-end anastomosis of the homograft to the remaining aorta . BioGlue was applied. The patient was placed in Trendelenburg. The crossclamp was removed with shaw ction on the ascending aortic vent and LV sump. Intermittent aspiration through the apex was also pe rformed to confirm no further air was identified, and he was easily weaned from bypass. The heparin was reversed with protamine. Transesophageal echo revealed normal aortic valvular function without r egurgitation. There was no significant bleeding. Heparin was reversed with protamine. Cannulae wer e removed and oversewn. Two ventricular pacing wires, 1 right pleural and 1 mediastinal drain were p laced. The thymic fat and pericardium were closed. Chest was closed in standard fashion. The patie nt was returned to ICU in stable condition. /[id number]/MODL
[2017-11-15] MEDS: KETOROLAC 30 MG/1 ML SDV IVP SCH (19:18)
--- NOTE | 2017-11-15 19:31 | PCMIDPN ---
Assessment/Plan: Assessment/Plan: * Aortic valve endocarditis with perivalvular abscess status post debridement and repair of annular abscess with aortic root/ascending aorta replacement with homograft: Blood cultures remain no growth to date without Gram stain showing white blood cells but no organisms. Remains most probable that this is due to oropharyngeal streptococcal species with Enterococcus or HACEK organisms also considerations. Staphylococcus aureus seems less likely given subacute nature presentation. Culture negative causes of endocarditis also in the differential. Have asked lab to hold piece of tissue in event PCR testing required. If cultures remain negative, will also need serologic evaluation for culture negative endocarditis. Continue empiric vancomycin and ceftriaxone pending additional culture data. 11/15/17 19:28 Subjective: Patient status post debridement repair of annular abscess with aortic root/ ascending aorta replacement. Operative findings reviewed with Dr. Franklin. Objective: Vital Signs Temp Pulse Resp BP Pulse Ox 34.0 C L 60 10 L 94/48 L 100 11/15/17 18:30 11/15/17 18:30 11/15/17 18:30 11/15/17 18:30 11/15/17 18:30 Microbiology 11/15/17 14:52 Gram Stain - Final Heart - Anaerobic Tube/Swab 11/15/17 14:38 Gram Stain - Final Heart - Tissue Laboratory Results 11/15/17 06:45 11/15/17 06:45 11/14/17 11/15/17 11/16/17 05:59 05:59 05:59 Intake Total 1000 2171 Output Total 450 Balance 1000 1721 Vancomycin # 2 Ceftriaxone # 2 Blood cultures x3 no growth Valve Gram stain 1+ WBC, no organisms Abscess cavity Gram stain no white blood cells, no organisms - Physical Exam General Appearance: other (Intubated, sedated) EENT: ET Tube, No conjunctival petechiae Respiratory: lungs clear (Anterolaterally) Cardiac/Chest: regular rate, rhythm, systolic murmur Skin: No embolic lesions ICD10 Worksheet Patient Problems: Problems Problem Status Onset Acute blood loss anemia Acute Aortic valve endocarditis Acute Ascending aorta enlargement Acute Bicuspid aortic valve Acute CHF exacerbation Acute Elevated troponin Acute Epigastric pain Acute Nonischemic dilated cardiomyopathy Acute S/P ascending aortic replacement Acute ~11/15/17 Status 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
[2017-11-15] MEDS: ALBUMIN 5% 250 ML IV PRN ×2 (19:53→20:27)
[2017-11-15] MEDS ORDERED: ALBUMIN 5% 500 ML BOTTLE IV ONE (20:49)
[2017-11-15] MEDS ORDERED: CHLORHEXIDINE GLUCONATE 15 ML UDL PO SCH (21:00)
[2017-11-15] MEDS ORDERED: FAMOTIDINE 20 MG/NACL 50 ML IV SCH (21:00)
[2017-11-15] MEDS ORDERED: ALBUMIN 5% 500 ML IV ONE (21:00)
[2017-11-15] MEDS: MUPIROCIN 2% 22 GM OINT NS SCH (21:22)
[2017-11-15] MEDS ORDERED: PANTOPRAZOLE SODIUM 40 MG VIAL ONE (21:25)
[2017-11-16] MEDS: KETOROLAC 30 MG/1 ML SDV IVP SCH ×4 (00:12→21:48)
[2017-11-16] MEDS: VANCOMYCIN 1.5 GM in NS 250 ML IV SCH ×2 (00:14→12:08)
[2017-11-16] MEDS: ONDANSETRON 4 MG/2 ML VIAL IVP PRN ×4 (00:27→21:36)
[2017-11-16] MEDS ORDERED: CARBOXYMETHYLCELLULOSE 0.5% 0.4 ML DROPERETTE EACHEYE PRN (04:00)
[2017-11-16 04:13] LABS: PLATELET COUNT 142 10^3/uL (150-400)
[2017-11-16] MEDS: HYDROCODONE/APAP 5/325 TAB PO PRN ×4 (04:17→15:29)
--- NOTE | 2017-11-16 06:48 | SOAPPROG ---
SOAP Progress Note Assessment/Plan: Assessment: POD#1 Urgent AVR/root/ascending aortic replacement with a 24 mm homograft. Bovine pericardial patch repair of annular abscess. Prophylactic suture ligation of left atrial appendage. 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 See pics vegetations/abscess in paper chart. Intraop gram stains NOS. Await cx results. ID following and managing Abx. Antithrombotic prophylaxis with ASA alone pending stability of rhythm. 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 Nonischemic dilated cardiomyopathy with acute dCHF and bilateral pleural effusions - Effusions evacuated intraop. Extubated without incident. Vigorous autodiuresis overnoc and low dose dopa initiated to support BP. Wean in progress. Care with fluid management. AF prophylaxis with BB as tolerated. Staggered intro of other heart failure meds when appropriate. Acute on chronic anemia - Stable. Plan: Stop dopa. Colloid prn CVP < 10. Routine POD#1 orders re lines, drains, wires, orals and mobility. Tx to PCU. 11/16/17 06:40 Subjective: Doing ok. Satisfactory analgesia. No dizziness. No longer nauseous. Objective: Vital Signs Temp Pulse Resp BP Pulse Ox 35.9 C L 74 26 H 103/52 L 95 11/16/17 05:00 11/16/17 06:22 11/16/17 06:22 11/16/17 06:22 11/16/17 06:22 Microbiology 11/15/17 14:52 Gram Stain - Final Heart - Anaerobic Tube/Swab 11/15/17 14:38 Gram Stain - Final Heart - Tissue Laboratory Results 11/16/17 03:55 11/16/17 03:55 11/15/17 11/16/17 11/17/17 05:59 05:59 05:59 Intake Total 2171 1920 Output Total 450 1535 Balance 1721 -1855 Physical Exam - Physical Exam General Appearance: alert, no apparent distress Respiratory: normal breath sounds (upper airways), other (blakes y-d to pleurovac, serosang drainage, no air leak) Cardiac/Chest: regular rate, rhythm, other (Sternotomy CDI. Vwires intact.) Abdomen: normal bowel sounds, non-tender, soft Skin: warm/dry Extremities: swelling (trace) ICD10 Worksheet Patient Problems: Problems Problem Status Onset Acute blood loss anemia Acute Aortic valve endocarditis Acute Ascending aorta enlargement Acute Bicuspid aortic valve Acute CHF exacerbation Acute Elevated troponin Acute Epigastric pain Acute Nonischemic dilated cardiomyopathy Acute S/P ascending aortic replacement Acute ~11/15/17 Status 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
[2017-11-16] MEDS: HEPARIN 5,000 UNIT/0.5 ML INJ SC SCH ×3 (07:15→22:40)
[2017-11-16] MEDS: ASPIRIN 81 MG CHEWABLE TAB PO SCH (08:08)
[2017-11-16] MEDS: MUPIROCIN 2% 22 GM OINT NS SCH ×2 (08:08→23:10)
[2017-11-16] MEDS: PANTOPRAZOLE SODIUM 40 MG TAB PO SCH (08:08)
--- NOTE | 2017-11-16 09:27 | ASMTCMCOM ---
CM Note CM Note Notes: Patient is POD #1 urgent aortic root/ascending aorta replacement with homograft secondary to aortic valve endocarditis. Cultures are pending; patient is on empiric vancomycin and ceftriaxone. PT/OT were ordered yesterday. Case Management will continue to follow. Date Signed: 11/16/2017 09:26 AM Electronically Signed By:Ursula Boles RN
--- NOTE | 2017-11-16 09:40 | PCMIDPN ---
Assessment/Plan: # Subacute aortic valve endocarditis with perivalvular abscess s/p urgent AVR/ root/ascending aortic replacement &homograft. Gram stain is negative from the OR and blood cultures from 11/14 remain negative. Streptococcal disease seems most likely but also would consider HACEK organisms. White count slightly elevated postoperatively, not entirely unexpected --continue empiric vancomycin and ceftriaxone --Vanco T today, goal around 15 --will add on serologies for Brucella, Bartonella, Q fever. Disease due to T whipplei would be tested via PCR tissue. Fungal cx sent of heart tissue --await cultures if negative then will send tissue for PCR testing Medications Vancomycin 1.5 g IV q.12 Ceftriaxone 2 g IV q.day Microbiology 11/14 blood cultures (3) NGTD 11/15 OR cultures: Gram stains negative, culture pending HIV neg Subjective: Patient has not gone to medical care for decades and was unaware that he had a bicuspid aortic valve Feels okay postoperatively. Objective: Vital Signs Temp Pulse Resp BP Pulse Ox 35.9 C L 73 17 100/52 L 98 11/16/17 05:00 11/16/17 07:00 11/16/17 07:00 11/16/17 07:00 11/16/17 07:00 Microbiology 11/15/17 14:52 Gram Stain - Final Heart - Anaerobic Tube/Swab 11/15/17 14:38 Gram Stain - Final Heart - Tissue Laboratory Results 11/16/17 03:55 11/16/17 03:55 11/15/17 11/16/17 11/17/17 05:59 05:59 05:59 Intake Total 2171 1920 Output Total 450 3775 Balance 1721 -1855 - Physical Exam General Appearance: alert, no apparent distress, thin EENT: pale conjunctiva, other (fair dentition, halitosis) Respiratory: other (Shallow inspiratory effort; AMBER drains base of sternum with serosanguineous fluid), No accessory muscle use Neck: other (Right IJ C/D/I), No supple Cardiac/Chest: regular rate, rhythm, systolic murmur Extremities: No pedal edema Abdomen: non-tender, soft Skin: warm/dry, pallor, No rash Neuro/Psych: alert, normal mood/affect, oriented x 3 - Time Spent With Patient Time Spent with Patient: greater than 35 minutes Time Spent with Patient: Greater than 35 minutes spent on this patients care, greater than 50% of time spent counseling, educating, and coordinating care regarding the above mentioned plan. ICD10 Worksheet Patient Problems: Problems Problem Status Onset Acute blood loss anemia Acute Aortic valve endocarditis Acute Ascending aorta enlargement Acute Bicuspid aortic valve Acute CHF exacerbation Acute Elevated troponin Acute Epigastric pain Acute Nonischemic dilated cardiomyopathy Acute S/P ascending aortic replacement Acute ~11/15/17 Status 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
[2017-11-16] MEDS: traMADol 50 MG TAB PO PRN (10:01)
--- NOTE | 2017-11-16 16:27 | PDINTPN ---
Resource Development Director Progress Note Assessment/Plan: 46 M without much PMH until last month developed night sweats and found to have anemia with high ferritin. Admitted 11/14 with abdominal and calf pain and found to have vegetations and wide open AR on echo. No recent dental work, trauma, skin wounds, surgery, etc. Blood cultures initially negative, but evaluated by CT surgery and planning AVR with Aortic root graft. Intermittent heart block also reported * endocarditis- unclear source at the moment, though intraoperative culture data will likely be helpful. No arrythmias seen in ICU. Procalcitonin was relatively low for active bacterial infection. Now s/p AVR * CHF 2/2 above. Baseline BNP 3700 * Abnormal chest CT- the ground glass infiltrate in the sup seg RLL is unlikely a septic emboli since his disease is focused on the aortic valve. Not clear what this represents at the moment. will discuss with team. * Subjective: no events Objective: Vital Signs Temp Pulse Resp BP Pulse Ox 36.3 C 80 16 120/90 H 93 11/16/17 16:00 11/16/17 16:00 11/16/17 16:00 11/16/17 16:00 11/16/17 16:00 Microbiology 11/15/17 14:52 Mycobacterial Smear (AYLIN) - Final Heart - Anaerobic Tube/Swab 11/15/17 14:38 Mycobacterial Smear (AYLIN) - Final Heart - Tissue 11/15/17 14:52 Gram Stain - Final Heart - Anaerobic Tube/Swab 11/15/17 14:38 Gram Stain - Final Heart - Tissue Laboratory Results 11/16/17 03:55 11/16/17 03:55 11/15/17 11/16/17 11/17/17 05:59 05:59 05:59 Intake Total 2171 1920 900 Output Total 450 3775 350 Balance 1721 -1100 550 Physical Exam - Physical Exam General Appearance: WD/WN, alert, no apparent distress EENT: PERRL/EOMI Neck: supple Respiratory: lungs clear, normal breath sounds, No respiratory distress, No accessory muscle use Cardiac/Chest: regular rate, rhythm, diastolic murmur, systolic murmur, No edema Abdomen: non-tender, soft, No distended Skin: normal color, warm/dry, No cyanosis Lymphatic: no adenopathy Extremities: No pedal edema Neuro/Psych: alert, normal mood/affect, oriented x 3 ICD10 Worksheet Patient Problems: Problems Problem Status Onset Acute blood loss anemia Acute Aortic valve endocarditis Acute Ascending aorta enlargement Acute Bicuspid aortic valve Acute CHF exacerbation Acute Elevated troponin Acute Epigastric pain Acute Nonischemic dilated cardiomyopathy Acute S/P ascending aortic replacement Acute ~11/15/17 Status 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
--- NOTE | 2017-11-16 16:28 | HOSPPROG ---
Hospitalist Progress Note Assessment/Plan: * Endocarditis with adam-valvular abscess -interestingly cultures negative so far -empiric IV Vanco + IV Ceftriaxone * Bicuspid aortic valve with torrential AI and dilated ascending aorta -s/p AVR and aortic root replacement with homograft * Anemia -iron studies c/w chronic disease * Mild CHF -PO lasix Subjective: Feels well Objective: Vital Signs Temp Pulse Resp BP Pulse Ox 36.3 C 80 16 120/90 H 93 11/16/17 16:00 11/16/17 16:00 11/16/17 16:00 11/16/17 16:00 11/16/17 16:00 Microbiology 11/15/17 14:52 Mycobacterial Smear (AYLIN) - Final Heart - Anaerobic Tube/Swab 11/15/17 14:38 Mycobacterial Smear (AYLIN) - Final Heart - Tissue 11/15/17 14:52 Gram Stain - Final Heart - Anaerobic Tube/Swab 11/15/17 14:38 Gram Stain - Final Heart - Tissue Laboratory Results 11/16/17 03:55 11/16/17 03:55 11/15/17 11/16/17 11/17/17 05:59 05:59 05:59 Intake Total 2171 1920 900 Output Total 450 3775 350 Balance 1721 -1855 [address] Franklin reviewed - case also discussed personally with Dr. Franklin - clear pus during OR CXR - negative - Physical Exam Constitutional: no apparent distress, appears nourished, not in pain Cardiovascular: regular rate and rhythym, no murmur, rub, or gallop Respiratory: no respiratory distress, no rales or rhonchi, clear to auscultation Gastrointestinal: normoactive bowel sounds, soft, non-tender abdomen, no palpable masses Skin: no rashes or abrasions, no fluctuance, no induration Neurologic: AAOx3, sensation intact bilaterally Psychiatric: interacting appropriately, not anxious, not encephalopathic, thought process linear ICD10 Worksheet Patient Problems: Problems Problem Status Onset Acute blood loss anemia Acute Aortic valve endocarditis Acute Ascending aorta enlargement Acute Bicuspid aortic valve Acute CHF exacerbation Acute Elevated troponin Acute Epigastric pain Acute Nonischemic dilated cardiomyopathy Acute S/P ascending aortic replacement Acute ~11/15/17 Status 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
[2017-11-16] MEDS ORDERED: ASPIRIN 81 MG CHEWABLE TAB TUBE PRN (18:12)
[2017-11-16] MEDS: VANCOMYCIN 1.25 GM in NS 250 ML IV SCH (22:00)
[2017-11-16] MEDS: METOPROLOL TARTRATE 25 MG TAB PO SCH (22:01)
[2017-11-17] MEDS: ZOLPIDEM TARTRATE 5 MG TAB PO PRN (01:10)
[2017-11-17] MEDS: KETOROLAC 30 MG/1 ML SDV IVP SCH (02:14)
[2017-11-17] MEDS: HEPARIN 5,000 UNIT/0.5 ML INJ SC SCH ×3 (06:05→20:42)
[2017-11-17] MEDS: VANCOMYCIN 1.25 GM in NS 250 ML IV SCH ×3 (06:13→22:28)
[2017-11-17] MEDS ORDERED: IBUPROFEN 600 MG TAB PO SCH (07:30)
--- NOTE | 2017-11-17 07:34 | SOAPPROG ---
SOAP Progress Note Assessment/Plan: POD#2: Urgent AVR/root/ascending aortic replacement with a 24 mm homograft. Bovine pericardial patch repair of annular abscess. Prophylactic suture ligation of left atrial appendage. 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 See pics vegetations/abscess in paper chart. Intraop gram stains NOS. Preliminary cx results gram positive rods in 2/3 aerobic bottles. ID following and managing Abx. Antithrombotic prophylaxis with ASA alone pending stability of rhythm. 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 Nonischemic dilated cardiomyopathy with acute dCHF and bilateral pleural effusions - Effusions evacuated intraop. Staggered intro of other heart failure meds when appropriate. Acute on chronic anemia - Stable. MATEO, pre-renal - NS @ 125 cc/h. Subjective: Has some problems taking deep breaths. Denies fevers/chills/sweats. Objective: Vital Signs Temp Pulse Resp BP Pulse Ox 36.3 C 82 16 132/92 H 97 11/17/17 04:00 11/17/17 04:00 11/17/17 04:00 11/17/17 04:00 11/17/17 04:00 Microbiology 11/14/17 10:30 Blood Panel (PCR) - Final Blood No Organism Detected 11/15/17 14:52 Mycobacterial Smear (AYLIN) - Final Heart - Anaerobic Tube/Swab 11/15/17 14:38 Mycobacterial Smear (AYLIN) - Final Heart - Tissue 11/15/17 14:52 Gram Stain - Final Heart - Anaerobic Tube/Swab 11/15/17 14:38 Gram Stain - Final Heart - Tissue Laboratory Results 11/16/17 03:55 11/16/17 11/17/17 11/18/17 05:59 05:59 05:59 Intake Total 1919 1850 Output Total 8180 715 Balance -1855 1135 Physical Exam - Physical Exam General Appearance: WD/WN, alert, no apparent distress EENT: No scleral icterus (R), No scleral icterus (L) Neck: normal inspection Respiratory: No respiratory distress Cardiac/Chest: regular rate, rhythm Abdomen: non-tender, soft, No distended Skin: normal color, warm/dry Extremities: No pedal edema Neuro/Psych: no motor/sensory deficits, alert, normal mood/affect, oriented x 3 ICD10 Worksheet Patient Problems: Problems Problem Status Onset Acute blood loss anemia Acute Aortic valve endocarditis Acute Ascending aorta enlargement Acute Bicuspid aortic valve Acute CHF exacerbation Acute Elevated troponin Acute Epigastric pain Acute Nonischemic dilated cardiomyopathy Acute S/P ascending aortic replacement Acute ~11/15/17 Status 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
[2017-11-17] MEDS: ASPIRIN 81 MG CHEWABLE TAB PO SCH (08:16)
[2017-11-17] MEDS: SENNOSIDES/DOCUSATE SODIUM TAB PO SCH ×2 (08:16→20:39)
[2017-11-17] MEDS: METOPROLOL TARTRATE 25 MG TAB PO SCH ×2 (08:17→20:39)
[2017-11-17] MEDS: PANTOPRAZOLE SODIUM 40 MG TAB PO SCH (08:17)
[2017-11-17] MEDS: MUPIROCIN 2% 22 GM OINT NS SCH (08:24)
[2017-11-17] MEDS: HYDROCODONE/APAP 5/325 TAB PO PRN ×3 (08:30→20:45)
[2017-11-17] MEDS: NS 1,000 ML IV SCH ×2 (09:13→16:35)
--- NOTE | 2017-11-17 11:28 | PCMIDPN ---
Assessment/Plan: # Subacute aortic valve endocarditis with perivalvular abscess s/p urgent AVR/ root/ascending aortic replacement &homograft. Blood cx now showing GPR, consider bacillus sp, corynebacterium sp - appearance in lab not c/w actinomyces and organism grew out of aerobic bottle making clostridium species unlikely (also grams stain did not have log/log jam appearance). Not listeria based on rapid PCR. Lactobacillus possible but patient denies regular ingestion of probiotics. --continue empiric vancomycin and ceftriaxone --vanco level high this afternoon with ARF. Recheck random vancomycin and Cr this evening and resume vancomycin based on levels. # ARF : likely multifactorial --holding vancomycin for now Medications Vancomycin 1.5 g IV q.12, #3 Ceftriaxone 2 g IV q.day, #4 Microbiology 11/14 blood cultures (3) aerobic bottles GPRs 11/15 OR cultures: Gram stains negative, culture: no growth on aerobic or anaerobic plates HIV neg Subjective: Patient describes some mild pain associated with chest tubes now improved s/p chest tube removal. Objective: Vital Signs Temp Pulse Resp BP Pulse Ox 36.6 C 77 18 121/81 H 99 11/17/17 11:21 11/17/17 11:21 11/17/17 11:21 11/17/17 11:21 11/17/17 11:21 Microbiology 11/14/17 10:30 Blood Panel (PCR) - Final Blood No Organism Detected 11/15/17 14:52 Mycobacterial Smear (YALIN) - Final Heart - Anaerobic Tube/Swab 11/15/17 14:38 Mycobacterial Smear (AYLIN) - Final Heart - Tissue 11/15/17 14:52 Gram Stain - Final Heart - Anaerobic Tube/Swab 11/15/17 14:38 Gram Stain - Final Heart - Tissue Laboratory Results 11/16/17 03:55 11/17/17 06:00 11/16/17 11/17/17 11/18/17 05:59 05:59 05:59 Intake Total 1920 1850 Output Total 3775 845 Balance -1855 1005 General Appearance: alert, no apparent distress EENT: pale conjunctiva, Respiratory: Shallow inspiratory effort; AMBER drains base of sternum with serosanguineous fluid, No accessory muscle use; a sternotomy scar healing well without erythema Neck: Right IJ C/D/I, No supple Cardiac/Chest: regular rate, rhythm, systolic murmur Extremities: Trace pretibial edema Abdomen: non-tender, soft Skin: warm/dry, pallor, No rash Neuro/Psych: alert, normal mood/affect, oriented x 3 Time Spent with Patient: Greater than 35 minutes spent on this patients care, greater than 50% of time spent counseling, educating, and coordinating care regarding the above mentioned plan. This was reviewed with patient's family including , [id number], father in law and mother as well as children. Extensively reviewed the differential diagnosis of a gram-positive emmie and its implications ICD10 Worksheet Patient Problems: Problems Problem Status Onset Acute blood loss anemia Acute Aortic valve endocarditis Acute Ascending aorta enlargement Acute Bicuspid aortic valve Acute CHF exacerbation Acute Elevated troponin Acute Epigastric pain Acute Nonischemic dilated cardiomyopathy Acute S/P ascending aortic replacement Acute ~11/15/17 Status 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
--- NOTE | 2017-11-17 11:42 | ASMTCMCOM ---
CM Note CM Note Notes: 11/17/2017 Case Management Note Discussed case with Dr. Franklin and Rex Kimball this morning. PT recommending home with cardiac outpatient rehab. There are no further case management d/c needs identified. Case Management d/c poc: Cardiac rehab Case Management available if needs change. Date Signed: 11/17/2017 11:42 AM Electronically Signed By:Dulce Yang RN
[2017-11-17] MEDS ORDERED: POLYETHYLENE GLYCOL 3350 17 GM PKT PO ONE (15:50)
--- NOTE | 2017-11-17 16:34 | HOSPPROG ---
Hospitalist Progress Note Assessment/Plan: 46 yo M w endocarditis Endocarditis with adam-valvular abscess -cultures w gm + rods -empiric IV Vanco + IV Ceftriaxone Bicuspid aortic valve with torrential AI and dilated ascending aorta -s/p AVR and aortic root replacement with homograft Anemia -iron studies c/w chronic disease nahun: SUSPECT VOLUME OVERLOADED hold lasix, start IVF Subjective: case d/w dr jensen Objective: Vital Signs Temp Pulse Resp BP Pulse Ox 36.8 C 82 18 125/87 H 100 11/17/17 15:38 11/17/17 15:38 11/17/17 15:38 11/17/17 15:38 11/17/17 15:38 Microbiology 11/15/17 14:52 Gram Stain - Final Heart - Anaerobic Tube/Swab 11/15/17 14:38 Gram Stain - Final Heart - Tissue 11/14/17 10:30 Blood Panel (PCR) - Final Blood No Organism Detected 11/15/17 14:52 Mycobacterial Smear (AYLIN) - Final Heart - Anaerobic Tube/Swab 11/15/17 14:38 Mycobacterial Smear (AYLIN) - Final Heart - Tissue Laboratory Results 11/16/17 03:55 11/17/17 06:00 11/16/17 11/17/17 11/18/17 05:59 05:59 05:59 Intake Total 1920 1850 Output Total 3775 845 Balance -1855 1005 - Physical Exam Constitutional: no apparent distress, appears nourished Eyes: PERRL, anicteric sclera Ears, Nose, Mouth, Throat: moist mucous membranes, hearing normal Cardiovascular: regular rate and rhythym, no murmur, rub, or gallop Respiratory: no respiratory distress, no rales or rhonchi Gastrointestinal: normoactive bowel sounds, soft, non-tender abdomen Genitourinary: no bladder fullness, No wills in urethra Skin: warm, normal color Musculoskeletal: full muscle strength ICD10 Worksheet Patient Problems: Problems Problem Status Onset Acute blood loss anemia Acute Aortic valve endocarditis Acute Ascending aorta enlargement Acute Bicuspid aortic valve Acute CHF exacerbation Acute Elevated troponin Acute Epigastric pain Acute Nonischemic dilated cardiomyopathy Acute S/P ascending aortic replacement Acute ~11/15/17 Status 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
[2017-11-17] MEDS: traMADol 50 MG TAB PO PRN (19:51)
[2017-11-17] MEDS ORDERED: VANCOMYCIN 1.25 GM in D5W 250 ML IV SCH (21:00)
[2017-11-18] MEDS: HYDROCODONE/APAP 5/325 TAB PO PRN ×2 (02:24→08:20)
[2017-11-18] MEDS: ZOLPIDEM TARTRATE 5 MG TAB PO PRN ×2 (02:31→22:59)
[2017-11-18] MEDS: NS 1,000 ML IV SCH (05:06)
[2017-11-18] MEDS: HEPARIN 5,000 UNIT/0.5 ML INJ SC SCH ×3 (06:17→22:59)
--- NOTE | 2017-11-18 06:44 | SOAPPROG ---
SOAP Progress Note Assessment/Plan: POD#3: Urgent AVR/root/ascending aortic replacement with a 24 mm homograft. Bovine pericardial patch repair of annular abscess. Prophylactic suture ligation of left atrial appendage. 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 See pics vegetations/abscess in paper chart. Intraop gram stains NOS. Preliminary cx results gram positive. ID following and managing Abx. Antithrombotic prophylaxis with ASA alone pending stability of rhythm. 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 Nonischemic dilated cardiomyopathy with acute dCHF and bilateral pleural effusions - Effusions evacuated intraop. Staggered intro of other heart failure meds when appropriate. Acute on chronic anemia - Stable. MATEO, pre-renal - resolved. Subjective: Feels tired today. Denies pain. Objective: Vital Signs Temp Pulse Resp BP Pulse Ox 36.3 C 85 19 137/91 H 92 11/18/17 03:13 11/18/17 03:13 11/18/17 03:13 11/18/17 03:13 11/18/17 03:13 Microbiology 11/15/17 14:52 Gram Stain - Final Heart - Anaerobic Tube/Swab 11/15/17 14:38 Gram Stain - Final Heart - Tissue 11/14/17 10:30 Blood Panel (PCR) - Final Blood No Organism Detected 11/17/17 11/18/17 11/19/17 05:59 05:59 05:59 Intake Total 1850 1750 Output Total 845 1000 Balance 1005 750 Physical Exam - Physical Exam General Appearance: WD/WN, alert, no apparent distress EENT: No scleral icterus (R), No scleral icterus (L) Neck: normal inspection Respiratory: No respiratory distress Cardiac/Chest: regular rate, rhythm Abdomen: non-tender, soft, No distended Skin: normal color, warm/dry Extremities: pedal edema Neuro/Psych: no motor/sensory deficits, alert, normal mood/affect, oriented x 3 ICD10 Worksheet Patient Problems: Problems Problem Status Onset Acute blood loss anemia Acute Aortic valve endocarditis Acute Ascending aorta enlargement Acute Bicuspid aortic valve Acute CHF exacerbation Acute Elevated troponin Acute Epigastric pain Acute Nonischemic dilated cardiomyopathy Acute S/P ascending aortic replacement Acute ~11/15/17 Status 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
[2017-11-18 07:01] LABS: PLATELET COUNT 164 10^3/uL (150-400)
[2017-11-18] MEDS: PANTOPRAZOLE SODIUM 40 MG TAB PO SCH (08:21)
[2017-11-18] MEDS: SENNOSIDES/DOCUSATE SODIUM TAB PO SCH ×2 (08:21→20:53)
[2017-11-18] MEDS: ASPIRIN 81 MG CHEWABLE TAB PO SCH (08:21)
[2017-11-18] MEDS: METOPROLOL TARTRATE 25 MG TAB PO SCH ×2 (08:21→20:53)
--- NOTE | 2017-11-18 08:54 | HOSPPROG ---
Hospitalist Progress Note Assessment/Plan: 46 yo M w endocarditis Endocarditis with adam-valvular abscess -cultures w gm + rods -empiric IV Vanco + IV Ceftriaxone Bicuspid aortic valve with torrential AI and dilated ascending aorta -s/p AVR and aortic root replacement with homograft Anemia -iron studies c/w chronic disease nahun: improved w volume cxr w some pulm edema dc IVF start lasix AM 7 constipation: daily miralax Subjective: case d/w zahra alberto, CT surgery PA. cr improved. constipated. cxr w some pulm edema, exaggerated bu lordotic view (interp by me) Objective: Vital Signs Temp Pulse Resp BP Pulse Ox 36.6 C 88 18 138/101 H 87 L 11/18/17 08:25 11/18/17 08:25 11/18/17 08:25 11/18/17 08:25 11/18/17 08:25 Microbiology 11/14/17 10:30 Blood Panel (PCR) - Final Blood No Organism Detected 11/15/17 14:52 Gram Stain - Final Heart - Anaerobic Tube/Swab 11/15/17 14:38 Gram Stain - Final Heart - Tissue Laboratory Results 11/18/17 06:00 11/18/17 06:00 11/17/17 11/18/17 11/19/17 05:59 05:59 05:59 Intake Total 1850 1750 Output Total 845 1000 Balance 1005 750 - Physical Exam Constitutional: no apparent distress, appears nourished Eyes: PERRL, anicteric sclera Ears, Nose, Mouth, Throat: moist mucous membranes, hearing normal Cardiovascular: systolic murmur, tachycardia Respiratory: no respiratory distress, other (good air movement. inferior and lateral crackles) Gastrointestinal: normoactive bowel sounds, soft, non-tender abdomen Genitourinary: no bladder fullness, No wills in urethra Skin: warm, normal color Musculoskeletal: full muscle strength, no muscle tenderness Neurologic: AAOx3 ICD10 Worksheet Patient Problems: Problems Problem Status Onset Acute blood loss anemia Acute Aortic valve endocarditis Acute Ascending aorta enlargement Acute Bicuspid aortic valve Acute CHF exacerbation Acute Elevated troponin Acute Epigastric pain Acute Nonischemic dilated cardiomyopathy Acute S/P ascending aortic replacement Acute ~11/15/17 Status 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
[2017-11-18] MEDS: POLYETHYLENE GLYCOL 3350 17 GM PKT PO SCH ×2 (09:12→14:27)
[2017-11-18] MEDS: FUROSEMIDE 20 MG/2 ML VIAL IVP SCH (09:24)
[2017-11-18] MEDS: VANCOMYCIN 1.25 GM in NS 250 ML IV SCH (09:24)
[2017-11-18] MEDS: POTASSIUM CL 20 MEQ TAB PO SCH (09:24)
--- NOTE | 2017-11-18 12:23 | ECHO ---
[email or web address] [address] Main: [phone] Fax: [email or web address] Echocardiogram Name: ALISSON CALLAHAN MR#: [id number] Study Date: 11/18/2017 Study Time: 09:52 AM Date of : 1970 Age: 46 year(s) Height: 177.8 cm (70 in.) Weight: 85.28 kg (188 lb.) BSA: 2.03 m2 Gender: Male Examination: Echo Indication: sS/P AVR and ascending aortic replacement with 24mm homograft Image Quality: Adequate Contrast: Requested by: Anthony Kimball BP: 144 mmHg/102 mmHg Heart Rate: Rhythm: Indication: sS/P AVR and ascending aortic replacement with 24mm homograft Procedure Staff Striping Machine Operator: Kiersten Chamberlain [facility] Reading Physician: Florian Harris MD Requesting Provider: Conclusions: Normal size left ventricle. Mild concentric LV hypertrophy. Low normal left ventricular systolic function. EF is 52 %. There is paradoxic septal motion suggestive of bundle branch block, paced cardiac rhythm, or prior cardiac surgery. Trivial to mild mitral regurgitation. Small mobile echo noted attached most likely to chordea.. Normal functioning aortic valve prosthesis. The prosthetic aortic valve is normal. Trivial pericardial effusion. There is a pleural effusion present. Measurements: Chambers Valvular Assessment AV/MV Valvular Assessment TV/PV Normal Normal Normal Name Value Range Name Value Range Name Value Range Ao Yudy (2D): 2.8 cm (1.4 cm-2.6 AV Vmax: 2.01 m/s (1 m/s-1.7 PV Vmax: 1.38 m/s (0.6 m/s-0.9 cm) m/s) m/s) IVSd (2D): 1.2 cm (0.6 cm-1.1 AV maxP mmHg ( - ) PV PGmax: 8 mmHg ( - ) cm) AV meanP mmHg ( - ) LVDd (2D): 5.5 cm (4.2 cm-5.9 IRAM (VTI): 1.7 cm ( - ) cm) MV E Vmax: 0.76 m/s ( - ) LVDs (2D): 4.0 cm (2.1 cm-4 MV A Vmax: 0.50 m/s ( - ) cm) MV E/A: 1.52 ( - ) LVPWd (2D): 1.1 cm (0.6 cm-1 cm) LVOTd 1.9 cm 1.9 cm mm LVEF (MOD4): 52 % (>=55 %) Patient: ALISSON CALLAHAN Study Date: 11/18/2017 Page 1 of 2 09:52 AM RVDd(2D): 3.7 cm (1.9 cm-3.8 cmmm) Continued Measurements: Chambers Name Value LADs Lon.9 cm LA Area: 20.3 cm2 LA Volume: 55 ml LA Volume Index: 27.1 ml/m2 Additional Vessels Name Value Ao Ascendin.5 cm Findings: Left Ventricle: Normal size left ventricle. Mild concentric LV hypertrophy. Low normal left ventricular systolic function. EF is 52 %. There is paradoxic septal motion suggestive of bundle branch block, paced cardiac rhythm, or prior cardiac surgery. Unable to assess diastolic dysfunction. Right Ventricle: Normal size right ventricle. Normal RV function. Left Atrium: The left atrium is normal in size. Right Atrium: The right atrium is normal in size. Mitral Valve: The mitral valve is normal in appearance and function. Trivial to mild mitral regurgitation. No mitral stenosis is present. Small mobile echo noted attached most likely to chordea.. Aortic Valve: The aortic valve is a bioprosthesis. Normal functioning aortic valve prosthesis. The prosthetic aortic valve is normal. No prosthesis stenosis. No prosthesis regurgitation. Tricuspid Valve: The tricuspid valve appears normal. There is no tricuspid valve regurgitation. Pulmonary artery pressure is not obtained due to inadequate TR jet. Pulmonic Valve: The pulmonic valve is normal in appearance and function. Trivial pulmonic valve regurgitation. Aorta: Normal size aortic root measuring 2.8 cm. Normal size ascending aorta measuring 2.5 cm. Normal size aortic arch. Normal size descending aorta. IVC: The IVC is normal sized. Pericardium: Trivial pericardial effusion. There is a pleural effusion present. (No Signature Object) Patient: ALISSON CALLAHAN Study Date: 11/18/2017 Page 2 of 2 09:52 AM [id number]
--- NOTE | 2017-11-18 14:46 | PCMIDPN ---
Assessment/Plan: # Subacute aortic valve endocarditis with perivalvular abscess s/p urgent AVR/ root/ascending aortic replacement &homograft. 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 --this organism can colonize humans therefore no need for workup of source --DC vancomycin --continue ceftriaxone, will plan for 4-6 weeks of IV therapy, might go 6 weeks due to extensive nature infection at time of surgery --await confirmation of organism ID from [facility]. Susceptibilities sent for ceftriaxone --blood cultures repeated this a.m. ; can place PICC line after negative for 48 hr # ARF : likely multifactorial --holding vancomycin for now Medications Vancomycin 1.5 g IV q.12, #4 Ceftriaxone 2 g IV q.day, #5 Microbiology 11/14 blood cultures (07/14) aerobic bottles GNRs 11/15 OR cultures: Gram stains negative, culture: no growth on aerobic or anaerobic plates HIV neg Subjective: Patient's symptoms are stable He was drinking unpasteurized Apple vinegar that apparently was supplemented with probiotics Objective: Vital Signs Temp Pulse Resp BP Pulse Ox 36.8 C 75 18 138/98 H 99 11/18/17 12:37 11/18/17 12:37 11/18/17 12:37 11/18/17 12:37 11/18/17 12:37 Microbiology 11/14/17 10:30 Blood Panel (PCR) - Final Blood No Organism Detected 11/15/17 14:38 Gram Stain - Final Heart - Tissue 11/15/17 14:52 Gram Stain - Final Heart - Anaerobic Tube/Swab Laboratory Results 11/18/17 06:00 11/18/17 06:00 11/17/17 11/18/17 11/19/17 05:59 05:59 05:59 Intake Total 1850 1750 500 Output Total 845 1000 700 Balance 1005 750 -200 - Physical Exam General Appearance: alert, no apparent distress Respiratory: other (Decreased breath sounds in left greater than right base), No accessory muscle use Cardiac/Chest: regular rate, rhythm, systolic murmur, other (Midline sternal incision healing well) Extremities: No pedal edema Skin: No rash Neuro/Psych: alert, normal mood/affect, oriented x 3 - Time Spent With Patient Time Spent with Patient: greater than 35 minutes (Reviewed new microbiologic data and plans for antibiotic therapy) Time Spent with Patient: Greater than 35 minutes spent on this patients care, greater than 50% of time spent counseling, educating, and coordinating care regarding the above mentioned plan. ICD10 Worksheet Patient Problems: Problems Problem Status Onset Acute blood loss anemia Acute Aortic valve endocarditis Acute Ascending aorta enlargement Acute Bicuspid aortic valve Acute CHF exacerbation Acute Elevated troponin Acute Epigastric pain Acute Nonischemic dilated cardiomyopathy Acute S/P ascending aortic replacement Acute ~11/15/17 Status 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
[2017-11-18] MEDS: traMADol 50 MG TAB PO PRN ×2 (17:09→23:00)
[2017-11-18] MEDS ORDERED: METOPROLOL TARTRATE 25 MG TAB PO ONE (21:31)
[2017-11-18] MEDS: ACETAMINOPHEN 325 MG TAB PO PRN (22:59)
[2017-11-19] MEDS: ACETAMINOPHEN 325 MG TAB PO PRN ×4 (05:59→22:35)
[2017-11-19] MEDS: traMADol 50 MG TAB PO PRN ×4 (06:00→22:36)
[2017-11-19] MEDS: HEPARIN 5,000 UNIT/0.5 ML INJ SC SCH ×3 (06:01→22:34)
[2017-11-19] MEDS: POLYETHYLENE GLYCOL 3350 17 GM PKT PO SCH (06:12)
--- NOTE | 2017-11-19 07:10 | SOAPPROG ---
SOAP Progress Note Assessment/Plan: POD#4: Urgent AVR/root/ascending aortic replacement with a 24 mm homograft. Bovine pericardial patch repair of annular abscess. Prophylactic suture ligation of left atrial appendage. 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 See pics vegetations/abscess in paper chart. ID following and managing Abx. Antithrombotic prophylaxis with ASA alone pending stability of rhythm. 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 Nonischemic dilated cardiomyopathy with acute dCHF and bilateral pleural effusions - Effusions evacuated intraop. Staggered intro of other heart failure meds when appropriate. Acute on chronic anemia - Stable. MATEO, pre-renal - resolved. DVT prophylaxis - heparin SQ/DVTs Disposition - home once medically stable. Subjective: Sleepy this morning. Denies pain. Objective: Vital Signs Temp Pulse Resp BP Pulse Ox 36.8 C 79 20 164/93 H 91 L 11/19/17 04:00 11/19/17 04:00 11/19/17 04:00 11/19/17 04:00 11/19/17 04:00 Microbiology 11/14/17 10:30 Blood Panel (PCR) - Final Blood No Organism Detected 11/15/17 14:38 Gram Stain - Final Heart - Tissue 11/15/17 14:52 Gram Stain - Final Heart - Anaerobic Tube/Swab Laboratory Results 11/18/17 06:00 11/18/17 11/19/17 11/20/17 05:59 05:59 05:59 Intake Total 1750 1250 400 Output Total 1000 2125 Balance 750 -875 400 Physical Exam - Physical Exam General Appearance: WD/WN, alert, no apparent distress EENT: No scleral icterus (R), No scleral icterus (L) Neck: normal inspection Respiratory: No respiratory distress Cardiac/Chest: regular rate, rhythm Abdomen: non-tender, soft, No distended Skin: normal color, warm/dry Extremities: pedal edema Neuro/Psych: no motor/sensory deficits, alert, normal mood/affect, oriented x 3 ICD10 Worksheet Patient Problems: Problems Problem Status Onset Acute blood loss anemia Acute Aortic valve endocarditis Acute Ascending aorta enlargement Acute Bicuspid aortic valve Acute CHF exacerbation Acute Elevated troponin Acute Epigastric pain Acute Nonischemic dilated cardiomyopathy Acute S/P ascending aortic replacement Acute ~11/15/17 Status 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
[2017-11-19] MEDS: POTASSIUM CL 20 MEQ TAB PO SCH (07:49)
[2017-11-19] MEDS: FUROSEMIDE 20 MG/2 ML VIAL IVP SCH (07:49)
[2017-11-19] MEDS: ASPIRIN 81 MG CHEWABLE TAB PO SCH (07:50)
[2017-11-19] MEDS: SENNOSIDES/DOCUSATE SODIUM TAB PO SCH (07:50)
[2017-11-19] MEDS: PANTOPRAZOLE SODIUM 40 MG TAB PO SCH (07:50)
[2017-11-19] MEDS: METOPROLOL TARTRATE 50 MG TAB PO SCH ×2 (07:50→22:35)
--- NOTE | 2017-11-19 09:49 | HOSPPROG ---
Hospitalist Progress Note Assessment/Plan: 46 yo M w endocarditis Endocarditis with adam-valvular abscess -cultures w Cardiobacterium hominis IV Ceftriaxone Bicuspid aortic valve with torrential AI and dilated ascending aorta -s/p AVR and aortic root replacement with homograft Anemia -iron studies c/w chronic disease nahun: improved w volume cxr w some pulm edema follow cr daily during diuresis constipation: daily miralax mioved bowels 11/18 AHRF: 2/2 pulm edema diuresing Subjective: case d/w dr aparicio and zahra alberto, CT surgery PA. diuresed Objective: Vital Signs Temp Pulse Resp BP Pulse Ox 36.4 C 80 17 138/90 H 92 11/19/17 07:21 11/19/17 07:21 11/19/17 07:21 11/19/17 07:21 11/19/17 08:02 Microbiology 11/14/17 10:30 Blood Panel (PCR) - Final Blood No Organism Detected 11/15/17 14:38 Gram Stain - Final Heart - Tissue 11/15/17 14:52 Gram Stain - Final Heart - Anaerobic Tube/Swab Laboratory Results 11/18/17 06:00 11/19/17 06:00 11/18/17 11/19/17 11/20/17 05:59 05:59 05:59 Intake Total 1750 1250 770 Output Total 1000 3225 1000 Balance - Physical Exam Constitutional: no apparent distress, appears nourished Eyes: PERRL, anicteric sclera Ears, Nose, Mouth, Throat: moist mucous membranes, hearing normal Cardiovascular: regular rate and rhythym, systolic murmur Respiratory: no respiratory distress, No no rales or rhonchi Gastrointestinal: normoactive bowel sounds, soft, non-tender abdomen Genitourinary: No wills in urethra Skin: warm, normal color Musculoskeletal: full muscle strength Neurologic: AAOx3 ICD10 Worksheet Patient Problems: Problems Problem Status Onset Acute blood loss anemia Acute Aortic valve endocarditis Acute Ascending aorta enlargement Acute Bicuspid aortic valve Acute CHF exacerbation Acute Elevated troponin Acute Epigastric pain Acute Nonischemic dilated cardiomyopathy Acute S/P ascending aortic replacement Acute ~11/15/17 Status 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
[2017-11-19] MEDS ORDERED: LISINOPRIL 5 MG TAB PO SCH (10:15)
--- NOTE | 2017-11-19 10:37 | PCMIDPN ---
Assessment/Plan: Assessment/Plan: * Aortic valve endocarditis with perivalvular abscess status post debridement and repair of annular abscess with aortic root/ascending aorta replacement with homograft: Blood cultures show growth of gram-negative emmie felt to be most compatible with Cardiobacterium hominis (HACEK group). Continue ceftriaxone with plans for 6 weeks of IV antibiotic therapy. HACEK group tends to be susceptible to ceftriaxone. If repeat blood cultures remain negative, plan PICC line tomorrow. Plan weekly CBC and CMP on therapy. Risks and benefits of PICC line and side effects of ceftriaxone including potential for allergic reaction, cytopenia, renal insufficiency, biliary sludging, and C difficile colitis discussed with patient. 11/19/17 10:34 Subjective: Patient without further night sweats. Postoperative chest pain present. Objective: Vital Signs Temp Pulse Resp BP Pulse Ox 36.4 C 80 17 138/90 H 92 11/19/17 07:21 11/19/17 07:21 11/19/17 07:21 11/19/17 07:21 11/19/17 08:02 Microbiology 11/14/17 10:30 Blood Panel (PCR) - Final Blood No Organism Detected 11/15/17 14:38 Gram Stain - Final Heart - Tissue 11/15/17 14:52 Gram Stain - Final Heart - Anaerobic Tube/Swab Laboratory Results 11/18/17 06:00 11/19/17 06:00 11/18/17 11/19/17 11/20/17 05:59 05:59 05:59 Intake Total 1750 1250 770 Output Total 1000 3225 1000 Balance 750 - Ceftriaxone # 6 Blood cultures 2/2 probable Cardiobacterium hominis Blood cultures 11/18/17 pending Heart cultures no growth today - Physical Exam General Appearance: alert, no apparent distress EENT: No scleral icterus, No thrush, No conjunctival petechiae Respiratory: other (Decreased breath sounds both bases), No respiratory distress Cardiac/Chest: regular rate, rhythm, other (Sternotomy site intact without erythema or drainage) Abdomen: non-tender, No distended Skin: No embolic lesions - Line/s other Lines: other (Right IJ triple-lumen catheter), No drainage, No erythema - Time Spent With Patient Time Spent with Patient: greater than 35 minutes Time Spent with Patient: Greater than 35 minutes spent on this patients care, greater than 50% of time spent counseling, educating, and coordinating care regarding the above mentioned plan. ICD10 Worksheet Patient Problems: Problems Problem Status Onset Acute blood loss anemia Acute Aortic valve endocarditis Acute Ascending aorta enlargement Acute Bicuspid aortic valve Acute CHF exacerbation Acute Elevated troponin Acute Epigastric pain Acute Nonischemic dilated cardiomyopathy Acute S/P ascending aortic replacement Acute ~11/15/17 Status 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
--- NOTE | 2017-11-19 10:43 | PDIAF ---
- Diagnosis Diagnosis: Aortic valve endocarditis Code Status: Full Code - Medication Management Discharge Medications: Medications to Continue on Transfer NK [No Known Home Meds] 11/14/17 [Last Taken Unknown] Clinical Rehabilitation Liaison Antibiotics: Ceftriaxone 2 g IV Q 24 hr Clinical Rehabilitation Liaison Antibiotic Stop Date: 12/27/17 Discharge Medications: Refer to the Discharge Home Medication list for PRN reason. PICC Care - Routine: Yes - Orders Services needed: Home Jail Care Face to Face: I certify that this patient was under my care and that I had the required [id number] encounter meeting the encounter requirements on the discharge day. My findings support the fact that the patient is homebound as defined in Home Care Face to Face Continued: CMS Chapter 7 Medicare Benefits Manual 30.1.1 , The condition of the patient is such that there exists a normal inability to leave home and consequently, leaving home would require a considerable and taxing effort. Additional Instructions: Please contact [facility] at [phone] to schedule your first cardiac rehab appointment. - Labs/Radiology CBC w/diff Date: 11/22/17 (Weekly Q ) CMP Date: 11/22/17 (Weekly Q ) Call or Fax Lab and Imaging Results to: Dr. Lopez, - Follow Up Care Current Providers and Referrals: INGRID CHATMAN [Other] Heriberto Lopez MD [Medical Doctor] - 11/28/17 11:30 am
[2017-11-19] MEDS ORDERED: ALTEPLASE 2 MG VIAL IVP PRN (10:44)
[2017-11-19] MEDS ORDERED: SENNOSIDES/DOCUSATE SODIUM TAB PO PRN (21:00)
[2017-11-19] MEDS ORDERED: LISINOPRIL 5 MG TAB PO ONE (21:31)
[2017-11-19] MEDS: ZOLPIDEM TARTRATE 5 MG TAB PO PRN (22:35)
[2017-11-20] MEDS: ACETAMINOPHEN 325 MG TAB PO PRN (06:29)
[2017-11-20] MEDS: traMADol 50 MG TAB PO PRN ×3 (06:29→21:49)
[2017-11-20] MEDS: METOPROLOL TARTRATE 50 MG TAB PO SCH ×2 (06:29→21:47)
[2017-11-20] MEDS: HEPARIN 5,000 UNIT/0.5 ML INJ SC SCH ×3 (06:30→21:47)
[2017-11-20 07:05] LABS: PLATELET COUNT 333 10^3/uL (150-400)
--- NOTE | 2017-11-20 07:25 | SOAPPROG ---
SOAP Progress Note Assessment/Plan: Assessment: POD#5 Urgent AVR/root/ascending aortic replacement with a 24 mm homograft. Bovine pericardial patch repair of annular abscess. Prophylactic suture ligation of left atrial appendage. 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 See pics vegetations/abscess in paper chart. 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 Prelim intraop cxs with P. acnes growth. ID following and managing Abx. Timing of PICC pending /8 blood cx results. Antithrombotic prophylaxis with ASA alone pending stability of rhythm. 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 BP control preferentially with BB. Nonischemic dilated cardiomyopathy with acute dCHF and bilateral pleural effusions - Effusions evacuated intraop. Extubated without incident. No prolonged vasoactive support. No significant volume overload. Staggered intro of heart failure meds in progress. Care with ACEI given recent renal dysfx. Acute on chronic anemia - Stable. No transfusions required. H/H > 9/30 maintained. VTE prophylaxis with hep SQ/SCDs. MATEO, pre-renal - Peak Cr of 1.5 on POD#2. Exacerbated by relatively low SBPs and NSAIDs. Resolved. Plan: Stop KCL. Stop lasix after this am dose. Inc lisinopril to 10 mg daily. Cont Metoprolol 50 mg BID. Optimize analgesia. Dispo - Home when cleared by ID. 11/20/17 07:20 Subjective: Trying not to take pain pills but admits to poor sleep and only pulling 800 on IS. Objective: Vital Signs Temp Pulse Resp BP Pulse Ox 36.7 C 81 16 140/103 H 95 11/20/17 07:16 11/20/17 07:16 11/20/17 07:16 11/20/17 07:16 11/20/17 07:16 Microbiology 11/14/17 10:30 Blood Culture - Final Blood Cardiobacterium Hominis Blood Panel (PCR) - Final No Organism Detected 11/15/17 14:38 Gram Stain - Final Heart - Tissue 11/15/17 14:38 Mycobacterial Smear (AYLIN) - Final Heart - Tissue 11/15/17 14:52 Gram Stain - Final Heart - Anaerobic Tube/Swab Laboratory Results 11/20/17 06:25 11/20/17 06:25 11/19/17 11/20/17 11/21/17 05:59 05:59 05:59 Intake Total 1250 1470 Output Total 8017 9889 Balance -1974 -2004 Physical Exam - Physical Exam General Appearance: alert, no apparent distress Respiratory: decreased breath sounds (bibasilar, L>R) Cardiac/Chest: regular rate, rhythm, other (Sternum grossly stable. Sternotomy and CT sites CDI) Abdomen: non-tender, soft Extremities: swelling (trace - 1+ dependent) ICD10 Worksheet Patient Problems: Problems Problem Status Onset Acute blood loss anemia Acute Aortic valve endocarditis Acute Ascending aorta enlargement Acute Bicuspid aortic valve Acute CHF exacerbation Acute Elevated troponin Acute Epigastric pain Acute Nonischemic dilated cardiomyopathy Acute S/P ascending aortic replacement Acute ~11/15/17 Status 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
[2017-11-20] MEDS: FUROSEMIDE 20 MG/2 ML VIAL IVP SCH (08:06)
[2017-11-20] MEDS: PANTOPRAZOLE SODIUM 40 MG TAB PO SCH (08:07)
[2017-11-20] MEDS: LISINOPRIL 10 MG TAB PO SCH (08:07)
[2017-11-20] MEDS: ASPIRIN 81 MG CHEWABLE TAB PO SCH (08:07)
--- NOTE | 2017-11-20 08:11 | PCMIDPN ---
Assessment/Plan: # Subacute aortic valve endocarditis with perivalvular abscess s/p urgent AVR/ root/ascending aortic replacement &homograft. Cardiobacterium hominis, one of the HACEK organisms, is causative pathogen. P acnes on valve tissue do not likely pathogen, suspect contaminant. Nonetheless this would be covered with ceftriaxone. No concern reason for mild persistent leukocytosis at this point due to lack of additional symptoms and clinical improvement as relates to aortic valve endocarditis --continue ceftriaxone for 6 weeks, interagency already completed --from ID perspective discharge okay after PICC line placed; remove right IJ central line after PICC line placed Medications Ceftriaxone 2 g IV q.day, #7 Microbiology 7/4 blood cultures (3/3) aerobic bottles GNRs 11/15 OR cultures: Gram stains negative, culture: 1 plate with rare P acnes 11/18 blood cultures (2) NGTD 11/20/17 08:12 Subjective: Patient is feeling stronger, although a bit tired this morning. Denies diarrhea. Low appetite Objective: Vital Signs Temp Pulse Resp BP Pulse Ox 36.7 C 81 16 140/103 H 95 11/20/17 07:16 11/20/17 07:16 11/20/17 07:16 11/20/17 07:16 11/20/17 07:16 Microbiology 11/14/17 10:30 Blood Culture - Final Blood Cardiobacterium Hominis Blood Panel (PCR) - Final No Organism Detected 11/15/17 14:38 Gram Stain - Final Heart - Tissue 11/15/17 14:38 Mycobacterial Smear (AYLIN) - Final Heart - Tissue 11/15/17 14:52 Gram Stain - Final Heart - Anaerobic Tube/Swab Laboratory Results 11/20/17 06:25 11/20/17 06:25 11/19/17 11/20/17 11/21/17 05:59 05:59 05:59 Intake Total 1250 1470 Output Total 3137 9285 Balance -1974 -2004 - Physical Exam General Appearance: alert, no apparent distress EENT: pale conjunctiva Respiratory: other (Decreased breath sounds in the bases), No accessory muscle use Neck: supple, other (Right IJ central line C/D/I) Extremities: pedal edema (Trace pedal edema) Male Genitalia: No wills Skin: pallor, No rash Neuro/Psych: no motor/sensory deficits, alert, normal mood/affect, oriented x 3 - Time Spent With Patient Time Spent with Patient: greater than 25 minutes Time Spent with Patient: Greater than 25 minutes spent on this patients care, greater than 50% of time spent counseling, educating, and coordinating care regarding the above mentioned plan. ICD10 Worksheet Patient Problems: Problems Problem Status Onset Acute blood loss anemia Acute Aortic valve endocarditis Acute Ascending aorta enlargement Acute Bicuspid aortic valve Acute CHF exacerbation Acute Elevated troponin Acute Epigastric pain Acute Nonischemic dilated cardiomyopathy Acute S/P ascending aortic replacement Acute ~11/15/17 Status 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
--- NOTE | 2017-11-20 08:59 | HOSPPROG ---
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 Improved with addition of ACEI #Post-op surgical chest pain: add [place] #Acute hypoxic resp failure: due to splinting. Improved to pain control, incentive spirometry #Disp: DC tomorrow with home health if BP stable Subjective: pain in chest improved Objective: Vital Signs Temp Pulse Resp BP Pulse Ox 36.7 C 81 16 140/103 H 95 11/20/17 07:16 11/20/17 07:16 11/20/17 07:16 11/20/17 07:16 11/20/17 07:16 Microbiology 11/14/17 10:30 Blood Culture - Final Blood Cardiobacterium Hominis Blood Panel (PCR) - Final No Organism Detected 11/15/17 14:38 Gram Stain - Final Heart - Tissue 11/15/17 14:38 Mycobacterial Smear (AYLIN) - Final Heart - Tissue 11/15/17 14:52 Gram Stain - Final Heart - Anaerobic Tube/Swab Laboratory Results 11/20/17 06:25 11/20/17 06:25 11/19/17 11/20/17 11/21/17 05:59 05:59 05:59 Intake Total 1250 1470 Output Total 3225 3475 Balance -1974 -2004 - Physical Exam Constitutional: no apparent distress Eyes: PERRL Ears, Nose, Mouth, Throat: moist mucous membranes Cardiovascular: regular rate and rhythym Respiratory: no respiratory distress Gastrointestinal: normoactive bowel sounds Neurologic: CN II-XII Intact ICD10 Worksheet Patient Problems: Problems Problem Status Onset Acute blood loss anemia Acute Aortic valve endocarditis Acute Ascending aorta enlargement Acute Bicuspid aortic valve Acute CHF exacerbation Acute Elevated troponin Acute Epigastric pain Acute Nonischemic dilated cardiomyopathy Acute S/P ascending aortic replacement Acute ~11/15/17 Status 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
[2017-11-20] MEDS ORDERED: POLYETHYLENE GLYCOL 3350 17 GM PKT PO PRN (09:00)
[2017-11-20] MEDS ORDERED: FUROSEMIDE 40 MG/4 ML VIAL IVP ONE (09:00)
[2017-11-20] MEDS ORDERED: ACETAMINOPHEN 500 MG TAB PO PRN (09:10)
[2017-11-20] MEDS: HYDROCODONE/APAP 5/325 TAB PO PRN ×5 (09:19→23:28)
[2017-11-20] MEDS ORDERED: LIDOCAINE 1% 300 MG/30 ML SDV ONE (10:19)
--- NOTE | 2017-11-20 15:58 | ASMTCMCOM ---
CM Note CM Note Notes: Chart reviewed. 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 Home infusion company via [place]. [phone]. Will need to fax final orders. Patient had PICC placed today. Patient elects to have [facility] services. Plan to dc tomorrow with home infusion and HHC. Spoke with who is to call and find a PCP to be assigned to him at [place]. CM to follow. Plan: Home with HHC and infusion services. Date Signed: 11/20/2017 03:57 PM Electronically Signed By:Pallavi Dove RN
--- NOTE | 2017-11-20 16:22 | ASMTCMCOM ---
CM Note CM Note Notes: Correction to previous note. Patient and his elect to go with [facility] for HHC services. Date Signed: 11/20/2017 04:20 PM Electronically Signed By:Pallavi Dove RN
[2017-11-21] MEDS: ZOLPIDEM TARTRATE 5 MG TAB PO PRN (00:22)
[2017-11-21] MEDS: HYDROCODONE/APAP 5/325 TAB PO PRN ×3 (04:53→14:29)
[2017-11-21] MEDS: HEPARIN 5,000 UNIT/0.5 ML INJ SC SCH (06:21)
--- NOTE | 2017-11-21 07:12 | SOAPPROG ---
SOAP Progress Note Assessment/Plan: Assessment: POD#6 Urgent AVR/root/ascending aortic replacement with a 24 mm homograft. Bovine pericardial patch repair of annular abscess. Prophylactic suture ligation of left atrial appendage. 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 See pics vegetations/abscess in paper chart. Initial blood cxs from 7/ with Cardiobacterium hominis growth. Repeat blood cxs 7/ NGTD and PICC placed yest. Prelim intraop cxs with P. acnes growth. ID following and managing Abx. Antithrombotic prophylaxis with ASA alone. 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 BP control preferentially with BB. Nonischemic dilated cardiomyopathy with acute dCHF and bilateral pleural effusions - Effusions evacuated intraop. Extubated without incident. No prolonged vasoactive support. No significant volume overload. Staggered intro of heart failure meds in progress. Upward trending BPs yest and observed overnoc on inc ACEI and narc analgesia. Acute on chronic anemia - Stable. No transfusions required. H/H > 9/30 maintained. VTE prophylaxis with hep SQ/SCDs. MATEO, pre-renal - Peak Cr of 1.5 on POD#2. Exacerbated by relatively low SBPs and NSAIDs. Resolved. Tolerating ACEI. Plan: Cont lisinopril 10 mg daily. Cont Metoprolol 50 mg BID. Eugene K. Dispo - Home without services today. Instructions re diet, meds, activity, wound care, and f/u to be reviewed. 11/21/17 07:08 Subjective: Feels great. Improved comfort, depth of breathing, ambulatory capacity, and sleep on [place]. Ready to go home. Objective: Vital Signs Temp Pulse Resp BP Pulse Ox 36.7 C 76 15 106/77 95 11/21/17 04:00 11/21/17 04:00 11/21/17 04:00 11/21/17 04:00 11/21/17 04:00 Microbiology 11/15/17 14:38 Mycobacterial Smear (AYLIN) - Final Heart - Tissue 11/15/17 14:52 Mycobacterial Smear (AYLIN) - Final Heart - Anaerobic Tube/Swab 11/15/17 14:52 Gram Stain - Final Heart - Anaerobic Tube/Swab 11/15/17 14:38 Gram Stain - Final Heart - Tissue 11/14/17 10:30 Blood Culture - Final Blood Cardiobacterium Hominis Blood Panel (PCR) - Final No Organism Detected Laboratory Results 11/20/17 06:25 11/20/17 11/21/17 11/22/17 05:59 05:59 05:59 Intake Total 1470 550 Output Total 3475 1400 Balance -2004 Adequate HR control. Significantly improved BP control. Borderline suppl O2 need Below baseline weight K unexpectedly elev at 5.2, ? lysis Physical Exam - Physical Exam General Appearance: alert, no apparent distress Respiratory: lungs clear Cardiac/Chest: regular rate, rhythm, other (Sternum grossly stable. Sternotomy and CT sites CDI) Abdomen: non-tender, soft Skin: warm/dry Extremities: other (no edema) ICD10 Worksheet Patient Problems: Problems Problem Status Onset Acute blood loss anemia Acute Aortic valve endocarditis Acute Ascending aorta enlargement Acute Bicuspid aortic valve Acute CHF exacerbation Acute Elevated troponin Acute Epigastric pain Acute Nonischemic dilated cardiomyopathy Acute S/P ascending aortic replacement Acute ~11/15/17 Status 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
[2017-11-21 07:26] VITALS: BP 119/80
[2017-11-21] MEDS: LISINOPRIL 10 MG TAB PO SCH (08:03)
[2017-11-21] MEDS: METOPROLOL TARTRATE 50 MG TAB PO SCH (08:03)
[2017-11-21] MEDS: PANTOPRAZOLE SODIUM 40 MG TAB PO SCH (08:04)
[2017-11-21] MEDS: ASPIRIN 81 MG CHEWABLE TAB PO SCH (08:04)
--- NOTE | 2017-11-21 08:16 | PDIAF ---
- Diagnosis Diagnosis: Aortic valve endocarditis Code Status: Full Code - Medication Management Discharge Medications: Medications to Continue on Transfer Acetaminophen [Tylenol ES 500 mg (*)] 500 mg PO Q6HRS PRN tab 11/21/17 [Last Taken Unknown] Alteplase [Cathflo Activase 2 mg (*)] 2 mg IVP PRN PRN vial 11/21/17 [Last Taken Unknown] Aspirin [Aspirin 81mg (*)] 81 mg PO DAILY tab.chew 11/21/17 [Last Taken Unknown ] Hydrocodone/APAP 5/325 [[place] 5/325 (*)] 1 - 2 tab PO Q4HRS PRN #40 tab [Last Taken Unknown] Lisinopril [Zestril 10 mg (*)] 10 mg PO DAILY #30 tab 11/21/17 [Last Taken Unknown] Metoprolol Tartrate [Lopressor 50 mg (*)] 50 mg PO BID #60 tab 11/21/17 [Last Taken Unknown] cefTRIAXone [Rocephin] 2 gm IV DAILY vial 11/21/17 [Last Taken Unknown] Fdc Antibiotics: Ceftriaxone 2 g IV Q 24 hr Fdc Antibiotic Stop Date: 12/27/17 Discharge Medications: Refer to the Discharge Home Medication list for PRN reason. PICC Care - Routine: Yes - Orders Services needed: Home Prison [facility] Face to Face: I certify that this patient was under my care and that I had the required [id number] encounter meeting the encounter requirements on the discharge day. My findings support the fact that the patient is homebound as defined in Home Care Face to Face Continued: CMS Chapter 7 Medicare Benefits Manual 30.1.1 , The condition of the patient is such that there exists a normal inability to leave home and consequently, leaving home would require a considerable and taxing effort. Oxygen: prn SpO2 < 90% Diet Recommendation: no restrictions on diet Diet Texture: Regular Texture Diet Additional Instructions: Please contact [facility] at [phone] to schedule phase 2 classes by early next week. Sternal precautions x 4 weeks. Avoid lifting > 10lbs with an outstretched arm. Avoid push/pull activities. No driving for 2 weeks or until cleared by surgery. Cleanse wounds once daily with soap and water. Avoid underwater immersion (pool , hot tub, bath) until scabs off. Ok to leave all wounds open to air. Avoid creams or ointments until scabs off. Elevate low legs at rest. Avoid prolonged standing or dangling. Log daily vital signs: weight, resting heart rate over 1 minute, blood pressure , +/- pulse oximetry. Call [facility] for overnight weight gain > 2lbs, weekly gain > 5lbs or worsening leg swelling. Call [facility] for resting heart rate > 120 or < 60 OR for systolic blood pressure consistently < 90 or > 140. Target oxygen saturation > 89%. Adjustments per cardiac rehab. Please obtain a chest xray prior to surgical appointment. Use requisition form attached to appointment card. Chest x-rays don't require an appointment. Go to the Emergency Room entrance at the [facility] location. Sign in at the computer kiosk in the entryway. You will be given a number and may sit in the waiting area until called. You will be registered and directed to the Imaging desk on the 1st floor. This process can take up to an hour. Allow at least 30 min before your appt to get x-ray taken. Ok to use [id number] medications for iron supplementation, bowel function or pain. Max daily dose of Tylenol 3000 mg. Avoid nonsteroidal anti-inflammatories (ibuprofen, advil, motrin, etc) due to recent kidney injury - Labs/Radiology CBC w/diff Date: 11/22/17 (Weekly Q ) CMP Date: 11/22/17 (Weekly Q ) Imaging Orders: chest xray prior to surgical appointment Call or Fax Lab and Imaging Results to: Dr. Lopez, - Follow Up Care Current Providers and Referrals: INGRID CHATMAN [Other] Heriberto Lopez MD [Medical Doctor] - 11/28/17 11:30 am Austin Franklin DO [Doctor of Osteopathy] - 11/27/17 9:30 am
--- NOTE | 2017-11-21 09:16 | PDDCSUM ---
Discharge Summary Discharge Summary: DATE OF ADMISSION: 11/14/17 DATE OF DISCHARGE: 11/21/17 DISPOSITION: Home with home healthcare infusion services PRINCIPAL ADMISSION DIAGNOSES: 1. Severe abdominal pain with vomiting 2. Subacute diastolic congestive heart failure PRINCIPAL DISCHARGE DIAGNOSES: 1. 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 Bicuspid aortic valve with severe insufficiency 3. Aneurysmal ascending aorta 4. Nonischemic dilated cardiomyopathy 5. Status post urgent replacement of the aortic valve, aortic root, and ascending aorta with a homograft 6. Acute on chronic anemia 7. Acute kidney injury exacerbated by nonsteroidal anti-inflammatories 8. 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 Although abdominal discomfort resolved with a GI cocktail, suspected to represent septic embolic phenomena, and admitted for further evaluation. PERTINENT PAST MEDICAL HISTORY: none MEDICATIONS ON ADMISSION: none ALLERGIES/SENSITIVITIES: NKDA CONSULTANTS: Cardiology (Niki), Infectious diseases (), CV surgery (Rigoberto), Pulmonology (Bruno) PROCEDURES/IMAGIN/4 (Niki): Transthoracic echocardiogram: Mildly dilated LA and LV, LVEF 60-65% , bicuspid aortic valve suspected, possible aortic valve vegetation with annular abscess, torrential aortic valve insufficiency 11/14 Chest and abdominal CTs: 4.1 cm ascending aorta. Small bilateral pleural effusions. Haziness of left abdominal mesentery and localized infiltrate of the RLL suggestive of possible septic emboli 11/15 (Niki): Transesophageal echocardiogram: BAV with fusion of the left and right coronary cusps. Non coronary cusp vegetation. Annular abscess. 11/15 (Rigoberto): Urgent replacement of the aortic valve, aortic root and ascending aorta with a 24 mm homograft. Debridement and bovine pericardial patch repair of annular abscess. Prophylactic suture ligation of the left atrial appendage. Evacuation of bilateral pleural effusions. 11/18 (Kimberly): Transthoracic echocardiogram: Normal BiV size, LVEF 52%, nl prosthetic aortic valve function 11/20 (Monica): Placement LUE PICC ABBREVIATED HOSPITAL COURSE BY ACTIVE PROBLEM LIST: 1. Subacute aortic valve endocarditis with annular abscess, IVCD, and suspected septic emboli - Causative pathogen Cardiobacterium hominis. Annular abscess debrided and valve replaced with a homograft. IV abx per PICC, under direction of ID. Antithrombotic prophylaxis with ASA alone. 2. 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 BP control preferentially with BB. 3. Nonischemic dilated cardiomyopathy with acute dCHF and bilateral pleural effusions - Effusions evacuated intraop. Extubated without incident. No prolonged vasoactive support. No significant volume overload. Staggered intro of heart failure meds as tolerated. ACEI associated with hyperkalemia and stopped. 4. Acute on chronic anemia - Stable. No transfusions required. H/H > 9/30 maintained. 5. MATEO, pre-renal - Peak Cr of 1.5 on POD#2. Exacerbated by relatively low SBPs and NSAIDs. Resolved. DISCHARGE CLINICAL INFORMATION: Sternum grossly stable. Sternotomy CDI, sutured, +Dermabond. HR 70s-80s. SBP 110s. SpO2 85% RA, correcting to > 90% on 1 Lpm O2 rest & 2 Lpm O2 activity. Wt 0.9 kg below admission at 83.9 kilos. WBC 12, Hgb 9.8, HCT 30.6, Plt 333, Na 134, K 5.3, Cr 1.2 DISCHARGE MEDICATIONS: NEW prescriptions: 1. Ceftriaxone 2 g IV q 24hr thru 12/27/17 2. Metoprolol tartrate 50 mg BID 3. [place] 5/325 one-half tab to two tabs prn incisional discomfort 4. ASA 81 mg daily 5. Oxygen at 1 lpm continuously or as directed by SpO2 FOLLOW UP APPOINTMENTS: 1. CV surgery: with Dr Franklin at [facility] on 11/27 at 9:30 am. 2. 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 Appointment to be established during surgical visit. 3. Infectious diseases: with Dr Lopez at [facility] on 11/28 at 11:30 am. FOLLOW UP TESTIN. CBC and CMP weekly, every . Results to Dr Lopez. 2. CXR prior to surgical appointment.
--- NOTE | 2017-11-21 09:37 | PDHOMEO2F ---
Home Oxygen Face to Face Home Orders: I certify that a physician or a nurse practitioner or physician's staffing assistant has had a [id number] encounter with this patient on the date of this order due to the diagnosis listed, which relates to the primary reason the patient requires home oxygen. Alternative treatments have been tried, or considered, and deemed ineffective. It is anticipated that supplemental oxygen will result in improvement with treatment. Home oxygen qualifying diagnosis: valvular cardiomyopathy Home oxygen secondary diagnosis: diastolic CHF SpO2 on room air (%): 85 Frequency of home oxygen needed: continuous Home oxygen liters per minute: 1 Home oxygen delivery device: nasal cannula Concentrator: Yes E-tanks for mobility and back up: Yes If ordering portable O2, is the patient mobile in the home?: Yes I certify that, based on these findings, the home oxygen is medically necessary for this patient for the following length of time. Length of time home oxygen needed: 1 month
[2017-11-21 10:49] LABS: BRUCELLA AB IGM Negative (Negative); BRUCELLA ANTIBODY IGG Negative (Negative); INTERPRETATION See Comments
--- NOTE | 2017-11-21 13:39 | PDIAF ---
- Diagnosis Diagnosis: Aortic valve endocarditis Code Status: Full Code - Medication Management Discharge Medications: Medications to Continue on Transfer Acetaminophen [Tylenol ES 500 mg (*)] 500 mg PO Q6HRS PRN tab 11/21/17 [Last Taken Unknown] Alteplase [Cathflo Activase 2 mg (*)] 2 mg IVP PRN PRN vial 11/21/17 [Last Taken Unknown] Aspirin [Aspirin 81mg (*)] 81 mg PO DAILY tab.chew 11/21/17 [Last Taken Unknown ] Hydrocodone/APAP 5/325 [[place] 5/325 (*)] 1 - 2 tab PO Q4HRS PRN #40 tab [Last Taken Unknown] Lisinopril [Zestril 10 mg (*)] 10 mg PO DAILY #30 tab 11/21/17 [Last Taken Unknown] Metoprolol Tartrate [Lopressor 50 mg (*)] 50 mg PO BID #60 tab 11/21/17 [Last Taken Unknown] cefTRIAXone [Rocephin] 2 gm IV DAILY vial 11/21/17 [Last Taken Unknown] Intermediate Antibiotics: Ceftriaxone 2 g IV Q 24 hr Intermediate Antibiotic Stop Date: 12/27/17 Discharge Medications: Refer to the Discharge Home Medication list for PRN reason. PICC Care - Routine: Yes - Orders Services needed: Home Care, Registered Nurse Home Care Face to Face: I certify that this patient was under my care and that I had the required [id number] encounter meeting the encounter requirements on the discharge day. My findings support the fact that the patient is homebound as defined in Home Care Face to Face Continued: CMS Chapter 7 Medicare Benefits Manual 30.1.1 , The condition of the patient is such that there exists a normal inability to leave home and consequently, leaving home would require a considerable and taxing effort. Oxygen: prn SpO2 < 90% Diet Recommendation: no restrictions on diet Diet Texture: Regular Texture Diet Additional Instructions: Please contact [facility] at [phone] to schedule phase 2 classes by early next week. Sternal precautions x 4 weeks. Avoid lifting > 10lbs with an outstretched arm. Avoid push/pull activities. No driving for 2 weeks or until cleared by surgery. Cleanse wounds once daily with soap and water. Avoid underwater immersion (pool , hot tub, bath) until scabs off. Ok to leave all wounds open to air. Avoid creams or ointments until scabs off. Elevate low legs at rest. Avoid prolonged standing or dangling. Log daily vital signs: weight, resting heart rate over 1 minute, blood pressure , +/- pulse oximetry. [facility] for overnight weight gain > 2lbs, weekly gain > 5lbs or worsening leg swelling. Call [facility] for resting heart rate > 120 or < 60 OR for systolic blood pressure consistently < 90 or > 140. Target oxygen saturation > 89%. Adjustments per cardiac rehab. Please obtain a chest xray prior to surgical appointment. Use requisition form attached to appointment card. Chest x-rays don't require an appointment. Go to the Emergency Room entrance at the [facility] location. Sign in at the computer kiosk in the entryway. You will be given a number and may sit in the waiting area until called. You will be registered and directed to the Imaging desk on the 1st floor. This process can take up to an hour. Allow at least 30 min before your appt to get x-ray taken. Ok to use hner-ebl-[id number] medications for iron supplementation, bowel function or pain. Max daily dose of Tylenol 3000 mg. Avoid nonsteroidal anti-inflammatories (ibuprofen, advil, motrin, etc) due to recent kidney injury - Labs/Radiology CBC w/diff Date: 11/22/17 (Weekly Q ) CMP Date: 11/22/17 (Weekly Q ) Imaging Orders: chest xray prior to surgical appointment Call or Fax Lab and Imaging Results to: Dr. Lopez, - Follow Up Care Current Providers and Referrals: INGRID CHATMAN [Other] Heriberto Lopez MD [Medical Doctor] - 11/28/17 11:30 am Austin Franklin DO [Doctor of Osteopathy] - 11/27/17 9:30 am
--- NOTE | 2017-11-21 14:24 | ASMTLACE ---
LACE Length of stay for Answers: 7-13 days current admission Acuity / Level of Answers: Yes Care: Did the patient have an inpatient admission? Comorbidities - select Answers: Congestive heart failure all that apply # of Emergency department Answers: 1-2 visits in the last 6 months Score: 11 Date Signed: 11/21/2017 02:23 PM Electronically Signed By:CLOTILDE Bowden
--- NOTE | 2017-11-21 14:28 | ASMTDCNOTE ---
Case Management Discharge Discharge Order Complete? Answers: Yes Patient to Obtain Answers: via Family Medications Transportation Arranged Answers: Family/Friends EMTALA Complete Answers: No Case Management Transport Answers: No Form Complete Faxed Final Orders Answers: Yes Agency/Facility Transfer Answers: Yes Report Printed & Faxed to Receiving Agency Family Notified Answers: No Discharge Comments Notes: Pts case discussed w/ FARZANA Abreu and Dr. Bangura. Pt is being discharged today w/ ivabx. DC orders sent to [facility] and to home infusion [facility] [facility] that [place] uses (F#: [phone]). No other needs identified at this time. CM available for changes. Plan: Valarie MARIN w/ [facility] home infusion Date Signed: 11/21/2017 02:25 PM Electronically Signed By:CLOTILDE Bowden
[2017-11-21 14:57] LABS: INTERPRETATION See Comments
--- NOTE | 2017-11-21 16:53 | HOSPPROG ---
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 Improved with addition of ACEI #Post-op surgical chest pain: add [place] #Acute hypoxic resp failure: due to splinting. Improved to pain control, incentive spirometry Plan: ok for discharge Cont Nasrin, will need a total of 6 weeks Monitor K closely as its elevated on discharge. Lisinopril stopped Subjective: no cp or sob. ready for discharge Objective: Vital Signs Temp Pulse Resp BP Pulse Ox 36.6 C 88 18 119/80 85 L 11/21/17 07:23 11/21/17 10:58 11/21/17 10:58 11/21/17 07:23 11/21/17 10:58 Microbiology 11/15/17 14:38 Gram Stain - Final Heart - Tissue 11/15/17 14:52 Gram Stain - Final Heart - Anaerobic Tube/Swab 11/14/17 11:39 Blood Culture - Final Blood Cardiobacterium Hominis 11/14/17 10:35 Blood Culture - Final Blood Cardiobacterium Hominis 11/15/17 14:38 Mycobacterial Smear (AYLIN) - Final Heart - Tissue 11/15/17 14:52 Mycobacterial Smear (AYLIN) - Final Heart - Anaerobic Tube/Swab Laboratory Results 11/20/17 06:25 11/21/17 08:10 11/20/17 11/21/17 11/22/17 05:59 05:59 05:59 Intake Total 1470 550 Output Total 3475 1400 Balance -2004 - Physical Exam Constitutional: no apparent distress Eyes: PERRL, EOMI Ears, Nose, Mouth, Throat: moist mucous membranes Cardiovascular: No edema Respiratory: no respiratory distress Gastrointestinal: normoactive bowel sounds Neurologic: AAOx3 Psychiatric: interacting appropriately, not anxious, not encephalopathic Lymph, Heme, Immunologic: No petechiae ICD10 Worksheet Patient Problems: Problems Problem Status Onset Acute blood loss anemia Acute Aortic valve endocarditis Acute Ascending aorta enlargement Acute Bicuspid aortic valve Acute CHF exacerbation Acute Elevated troponin Acute Epigastric pain Acute Hyperkalemia Acute Nonischemic dilated cardiomyopathy Acute S/P ascending aortic replacement Acute ~07/05/18 Status 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
--- NOTE | 2017-11-22 14:40 | ASDISCHSUM ---
Discharge Information Plan Status:Home with Home Health Medically Cleared to Leave:11/21/2017 Discharge Date:11/21/2017 04:17 PM D/C Disposition: [facility] D/C Disposition:HHSNOTBCH Projected Discharge Date:11/21/2017 11:00 AM Transportation at D/C: Discharge Delay Reason: Follow-Up Date:11/21/2017 11:00 AM Discharge Slot: Final Diagnosis: Placement Information Referral Type:*Home Health Care Services Referral ID:[id number] Provider Name:[facility] Address 1:[address] [address] Address 2: City:[place] Selection Factors: State:[place] Referral Type:Home Infusion Referral ID:[id number] Provider Name: Address 1: Phone Number: Address 2: Fax Number: City: Selection Factors: State: Patient Contact Information Contact Name:ROSE Relationship: Address:[address] Work Phone: City:[place] Alternate Phone: State/Zip Code:[place] [address] Email: Financial Information Financial Class:HMO and PPO Plans Primary Plan Desc:[facility] Primary Plan Number:[id number] Secondary Plan Desc: Secondary Plan Number: Assessment Information LACE LACE Length of stay for Answers: 7-13 days current admission Acuity / Level of Answers: Yes Care: Did the patient have an inpatient admission? Comorbidities - select Answers: Congestive heart failure all that apply # of Emergency department Answers: 1-2 visits in the last 6 months Score: 11 Date Signed: 11/21/2017 02:23 PM Electronically Signed By:CLOTILDE Bowden [facility] CM Progress Note CM Note CM Note Notes: Chart reviewed, discussed patient case in rounds. New diagnosis of endocarditis. CVS consulted. Patient to transfer to ICU for closer monitoring. BC sent, CT pending. Spoke with Cha at [facility] [phone] and they are aware of patient's current condition and need for critical care, CM to follow. Plan: TBD Date Signed: 11/14/2017 11:46 AM Electronically Signed By:Pallavi Dvoe RN [facility] Progress Note CM Note CM Note Notes: Patient is POD #1 urgent aortic root/ascending aorta replacement with homograft secondary to aortic valve endocarditis. Cultures are pending; patient is on empiric vancomycin and ceftriaxone. PT/OT were ordered yesterday. Case Management will continue to follow. Date Signed: 11/16/2017 09:26 AM Electronically Signed By:Ursula Boles RN [facility] CM Progress Note CM Note CM Note Notes: 11/17/2017 Case Management Note Discussed case with Dr. Franklin and Rex Kimball this morning. PT recommending home with cardiac outpatient rehab. There are no further case management d/c needs identified. Case Management d/c poc: Cardiac rehab Case Management available if needs change. Date Signed: 11/17/2017 11:42 AM Electronically Signed By:Dulce Yang RN [facility] CM Progress Note CM Note CM Note Notes: Chart reviewed. Patient will require meterman antibiotic therapy. Home infusion [facility] via [facility]. [phone]. Will need to fax final orders. Patient had PICC placed today. Patient elects to have [facility] services. Plan to dc tomorrow with home infusion and HHC. Spoke with who is to call and find a PCP to be assigned to him at [facility]. CM to follow. Plan: Home with HHC and infusion services. Date Signed: 11/20/2017 03:57 PM Electronically Signed By:Pallavi Dove RN [facility] CM Progress Note CM Note CM Note Notes: Correction to previous note. Patient and his elect to go with [facility] for HHC services. Date Signed: 11/20/2017 04:20 PM Electronically Signed By:Pallavi Dove RN Case Management Discharge Plan Note Case Management Discharge Discharge Order Complete? Answers: Yes Patient to Obtain Answers: via Family Medications Transportation Arranged Answers: Family/Friends EMTALA Complete Answers: No Case Management Transport Answers: No Form Complete Faxed Final Orders Answers: Yes Agency/Facility Transfer Answers: Yes Report Printed & Faxed to Receiving Agency Family Notified Answers: No Discharge Comments Notes: Pts case discussed w/ FARZANA Abreu and Dr. Bangura. Pt is being discharged today w/ ivabx. DC orders sent to [facility] and to home infusion company that [facility] uses (F#: [phone]). No other needs identified at this time. CM available for changes. Plan: Valarie MARIN w/ [employer] [facility] [employer] home infusion Date Signed: 11/21/2017 02:25 PM Electronically Signed By:CLOTILDE Bowden Intervention Information
== END 2017-11-21 16:17 | disposition home health service (06) | DRG 220 ==
LOC: F2W 11-14 04:35 → F2N 11-14 11:46 → UNDODISIN 11-15 16:28 → F2W 11-16 15:55
PROVIDERS: ADMIT Student in an Organized Health Care Education/Training Program; ATTEND Thoracic Surgery (Cardiothoracic Vascular Surgery)
DX: I33.0 Acute and subacute infective endocarditis (principal); I76 Septic arterial embolism; I42.0 Dilated cardiomyopathy; N17.9 Acute kidney failure, unspecified; I35.1 Nonrheumatic aortic (valve) insufficiency; I71.2 Thoracic aortic aneurysm, without rupture; D50.9 Iron deficiency anemia, unspecified; E87.5 Hyperkalemia; I50.9 Heart failure, unspecified
CPT/HCPCS: 82435-PO; 82565-PO; 82947-PO; 83605-PO; 84132-PO; 84295-PO; 84520-PO; 85014-PO; 86611-90; 86622-90; 86638-90; 96374; 97116-GP; 97161-GP; 97165-GO; 97535-GO; C1751; C1763; J0153; J0282; J0690; J0696; J1100; J1170; J1265; J1644; J1650; J1815; J1885; J1940; J2001; J2150; J2250; J2260; J2270; J2370; J2405; J2704; J2720; J2765; J2930; J3010; J3370; J3475; J7060; P9041; Q9967

== ENCOUNTER → 2017-11-27 | Outpatient (CLI) | payer OTHER | LOC: FIMAGING 09:14 | PROVIDERS: ATTEND Thoracic Surgery (Cardiothoracic Vascular Surgery) | PROC: 0W993ZZ Drainage of Right Pleural Cavity, Percutaneous Approach (ICD-10-PCS; principal; 2017-11-27) | DX: R06.89 Other abnormalities of breathing (principal); J90 Pleural effusion, not elsewhere classified; I51.7 Cardiomegaly; Z95.1 Presence of aortocoronary bypass graft; Z98.890 Other specified postprocedural states | CPT/HCPCS: Q9967 ==

== ENCOUNTER → 2017-12-04 | Outpatient (CLI) | payer OTHER | LOC: FIMAGING 09:31 | PROVIDERS: ATTEND Thoracic Surgery (Cardiothoracic Vascular Surgery) | DX: Z48.812 Encounter for surgical aftercare following surgery on the circulatory system (principal); Z95.1 Presence of aortocoronary bypass graft; J90 Pleural effusion, not elsewhere classified; J98.11 Atelectasis ==

== ENCOUNTER → 2017-12-11 | Outpatient (CLI) | payer OTHER | LOC: FIMAGING 10:38 | PROVIDERS: ATTEND Thoracic Surgery (Cardiothoracic Vascular Surgery) | DX: J90 Pleural effusion, not elsewhere classified (principal); J98.11 Atelectasis ==

== ENCOUNTER 2018-05-10 11:44 | Inpatient (IN) | payer OTHER ==
--- NOTE | 2018-05-10 12:48 | EDPHY ---
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 Apparently this began after exercising the day after Karen. His tells me that he complained of feeling confused yesterday (05/09) and she notes that he seems worse today. He tells me that he feels "out of it". He particularly notices that he is having trouble verbalizing his thoughts and difficulty writing. He was not able to spell his 's name, nor was he able to write his own name. No recent head trauma. No neck manipulations. He denies neck pain. He has a history of aortic valve endocarditis diagnosed in November of this year and requiring replacement of the aortic valve, aortic root, ascending aorta with homograft. During that hospitalization he had septic emboli to the abdominal mesentery and the right lung. He is not on anticoagulation. REVIEW OF SYSTEMS: A ten system review of systems was performed and is negative with the exception of the items mentioned in the HPI. Past medical history: 1. Aortic valve endocarditis with perivalvular abscess 2. 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 He lives with his and children. No tobacco use. General Appearance: Alert. Vital signs reviewed. Blood pressure 132/78. Afebrile. Head: Normocephalic atraumatic. Eyes: Pupils equal and round, no conjunctival injection, no discharge. Anicteric. ENT, Mouth: Mucous membranes are moist, no oropharyngeal erythema or edema. Neck: No lymphadenopathy, supple. No carotid bruits. Nontender to palpation over the cervical spine in the midline. Respiratory: Lungs are clear to auscultation; no wheezes, rales, or rhonchi. Cardiovascular: Regular rate and rhythm; no murmur, rub, or gallop. Gastrointestinal: Abdomen is soft and nontender, no masses or organomegaly, bowel sounds normal. Skin: Warm and dry, no rashes on exposed skin, normal color. Back: Nontender to palpation over the thoracolumbar spine. No CVAT. Extremities: No lower extremity edema, no calf tenderness or swelling. Neurological: Alert and oriented. Speech is fluent with occasional word- finding difficulty. He had some trouble following commands related to motor testing. He is trying to write and having trouble spelling his name and his 's name. Moving all four extremities easily and equally. No drift. Cranial nerves II through XII are examined and are intact (visual acuity not tested). Strength is 5 over 5 bilaterally with testing of all major motor groups. Sensation is intact to light touch over all 4 extremities. Deep tendon reflexes are 2+ in the biceps and knees bilaterally. [id number] is performed with slight past pointing. Psychiatric: Frustrated and upset. - Medical/Surgical History Hx Asthma: No Hx Chronic Respiratory Disease: No Hx Diabetes: No Hx Cardiac Disease: No Hx Renal Disease: No Hx Cirrhosis: No Hx Alcoholism: No Hx HIV/AIDS: No Hx Splenectomy or Spleen Trauma: No Other PMH: endocarditis aortic, ascending aortic replacement/homograft 11/15/17 - Social History Smoking Status: Never smoked Constitutional: Initial Vital Signs Temperature (C) 36.7 C 05/10/18 11:50 Heart Rate 64 05/10/18 11:50 Respiratory Rate 16 05/10/18 11:50 Blood Pressure 132/78 H 05/10/18 11:50 O2 Sat (%) 98 05/10/18 11:50 O2 Delivery Mode Room Air Allergies/Adverse Reactions: No Known Allergies Allergy (Unverified 11/13/17 23:14) Home Medications: Medication Instructions Recorded Metoprolol Tartrate [Lopressor 25 25 mg PO BID 05/10/18 mg (*)] Medical Decision Making ED Course/Re-evaluation: Difficulty with language--he has speaking, writing, and reading deficits today and he complains that he has been having problems for the past [address] the head reported to me by Dr. Boswell. There are white matter changes, subacute versus chronic. Please see formal report. CT angiogram is recommended. CT angiogram of the head neck was performed and is negative/normal. MRI without contrast, as per Dr. Boswell, in progress at 3:05 p.m.. Patient returned from MRI at 3:35 a.m.. While he has been in the emergency department he has been practicing writing his 's name. He has filled several pages of paper with her name, but is now able to spell it correctly. MRI shows subacute infarcts in the left parietal and left posterior frontal regions. I spoke with Dr. Burnett of Neurology. At transthoracic echocardiogram has been ordered. Blood cultures will be obtained, as he has a history of endocarditis in the past. He is being admitted to the hospitalist service. I will also contact his fundraising manager and cardiac surgeon. Dr. Austin Mariee will read the echocardiogram. Dr. Franklin is aware of the patient's hospitalization. He has remained stable while in the emergency department. Differential Diagnosis: I considered a differential diagnosis that includes but is not limited to endocarditis with septic emboli, embolic stroke, hemorrhagic stroke, tumor, subarachnoid hemorrhage. Critical Care Time: I spent a total of 45 minutes of critical care time in obtaining history, performing a physical exam, bedside monitoring of interventions, collecting and interpreting tests and discussion with consultants but not including time spent performing procedures. He was at risk of neurologic deterioration. - Data Points Laboratory Results: Laboratory Results 05/10/18 13:30 05/10/18 12:22 Medications Given: Aspirin (Aspirin) 81 mg PO DAILY ALEJANDRA Stop: 11/07/18 08:59 Last Admin: 05/11/18 08:14 Dose: 81 mg Metoprolol Tartrate (Lopressor) 25 mg PO BID ALEJANDRA Stop: 11/06/18 20:59 Last Admin: 05/11/18 08:14 Dose: 25 mg Point of Care Test Results: Chemistry 05/10/18 05/10/18 12:28 12:26 POC Sodium 141 mEq/L mEq/L (135-145) POC Potassium 4.3 mEq/L mEq/L (3.3-5.0) POC Chloride 101 mEq/L mEq/L (97-110) POC BUN 20 mg/dL mg/dL (7-23) POC Creatinine 1.0 mg/dL mg/dL (0.7-1.3) POC Glucose 87 mg/dL mg/dL (70-100) POC Troponin I 0.00 ng/mL ng/mL (0.00-0.08) ISTAT H&H 05/10/18 12:28 POC Hgb 15.3 gm/dL gm/dL (13.7-17.5) POC Hct 45 % % (40-51) Departure - Departure Disposition: [facility] Inpatient Acute Clinical Impression: Stroke Qualifiers: CVA mechanism: unspecified Qualified Code(s): I63.9 - Cerebral infarction, unspecified Condition: Fair
[2018-05-10] MEDS ORDERED: IOPAMIDOL (ISOVUE 370) 100 ML BTL IV ONE (13:36)
--- NOTE | 2018-05-10 15:39 | CPEKG ---
Test Reason : OPEN Blood Pressure : / mmHG Vent. Rate : 067 BPM Atrial Rate : 067 BPM P-R Int : 211 ms QRS Dur : 101 ms QT Int : 403 ms P-R-T Axes : 014 -05 072 degrees QTc Int : 426 ms Sinus rhythm Prolonged SC interval Confirmed by Regla Gould ([id number]) on 05/10/2018 3:38:35 PM Referred By: Confirmed By:Regla Gould
[2018-05-10 16:36] LABS: PLATELET COUNT 228 10^3/uL (150-400)
[2018-05-10] MEDS ORDERED: ACETAMINOPHEN 325 MG TAB PO PRN (17:05)
[2018-05-10] MEDS ORDERED: oxyCODONE IR 5 MG TAB PO PRN (17:05)
[2018-05-10] MEDS ORDERED: HYDROmorphONE/DILAUDID 1 MG/ML INJ IVP PRN (17:05)
[2018-05-10] MEDS ORDERED: ONDANSETRON DISINTEGRATING 4 MG TAB PO PRN (17:05)
[2018-05-10] MEDS ORDERED: ONDANSETRON 4 MG/2 ML VIAL IVP PRN (17:05)
--- NOTE | 2018-05-10 17:57 | ECHO ---
[email or web address] [address] [address] Main: [phone] Fax: Transthoracic Echocardiogram Name: ALISSON CALLAHAN MR#: [id number] Study Date: 05/10/2018 Study Time: 04:14 PM Date of : 1970 Age: 47 year(s) Height: 182.9 cm (72 in.) Weight: 83.92 kg (185 lb.) BSA: 2.06 m2 Gender: Male Examination: Echo Indication: S/P AVR ascending aortic replacement with 24 mmHomograft, Left parietal, posterofronal infarct, Confusion Image Quality: Contrast: Requested by: Regla Gould BP: 135 mmHg/83 mmHg Heart Rate: Rhythm: Normal sinus rhythm Indication: S/P AVR ascending aortic replacement with 24 mmHomograft, Left parietal, posterofronal infarct, Confusion Procedure Staff Front Office Help: Jude Armenta [facility] Reading Physician: Austin Mariee MD Requesting Provider: Conclusions: Normal size left ventricle. Mild concentric LV hypertrophy. EF is 53 %. There is paradoxic septal motion suggestive of bundle branch block, paced cardiac rhythm, or prior cardiac surgery. Trivial mitral valve regurgitation. The aortic valve is a bioprosthesis. Normal functioning aortic valve prosthesis. Trivial pericardial effusion. Previous exam of 11/18/17 reported a small echogenic focus atached to one of the mitral valve chordae. I do not appreciate it on this study. Measurements: Chambers Valvular Assessment AV/MV Valvular Assessment TV/PV Normal Normal Normal Name Value Range Name Value Range Name Value Range Ao Yudy (MM): 2.7 cm (2.2 cm-3.7 AV Vmax: 1.63 m/s (1 m/s-1.7 PV Vmax: 1.10 m/s (0.6 m/s-0.9 cm) m/s) m/s) IVSd (2D): 0.9 cm (0.6 cm-1.1 AV maxP mmHg ( - ) PV PGmax: 5 mmHg ( - ) cm) AV meanP mmHg ( - ) LVDd (2D): 5.2 cm (4.2 cm-5.9 LVOT Vmax: 0.76 m/s (0.7 m/s-1.1 cm) m/s) LVDs (2D): 3.8 cm (2.1 cm-4 IRAM (Vmax): 1.3 cm2 ( - ) cm) IRAM (VTI): 1.5 cm ( - ) LVPWd (2D): 0.8 cm (0.6 cm-1 MV E Vmax: 0.72 m/s ( - ) cm) MV A Vmax: 0.42 m/s ( - ) LVOTd 1.9 cm 1.9 cm mm MV E/A: 1.71 ( - ) LVEF (2D): 53 (>=54 %) Patient: ALISSON CALLAHAN Study Date: 05/10/2018 Page 1 of 2 04:14 PM Continued Measurements: Chambers Valvular Assessment AV/MV Name Value Name Value LADs Lon.6 cm MV E/E' Lateral: 6.40 LA Area: 15.8 cm2 LA Volume: 44 ml LA Volume Index: 21.4 ml/m2 Findings: Left Ventricle: Normal size left ventricle. Mild concentric LV hypertrophy. Normal global systolic LV function. EF is 53 %. There is paradoxic septal motion suggestive of bundle branch block, paced cardiac rhythm, or prior cardiac surgery. Right Ventricle: Normal size right ventricle. Normal RV function. Left Atrium: The left atrium is normal in size. Right Atrium: The right atrium is normal in size. Mitral Valve: The mitral valve is normal in appearance and function. Trivial mitral valve regurgitation. Aortic Valve: The aortic valve is a bioprosthesis. Normal functioning aortic valve prosthesis. The prosthetic aortic valve is normal. No prosthesis stenosis. No prosthesis regurgitation. Tricuspid Valve: The tricuspid valve appears normal. Pulmonary artery pressure is not obtained due to inadequate TR jet. Pulmonic Valve: The pulmonic valve is normal in appearance and function. Aorta: Normal size aortic root measuing 2.5cm. Normal size aorta, normal size aortic arch and descending arch.. IVC: The IVC is normal sized. Pericardium: Trivial pericardial effusion. Exam Comments: Previous exam of 11/18/17 reported a small echogenic focus atached to one of the mitral valve chordae. I do not appreciate it on this study. (No Signature Object) Patient: ALISSON CALLAHAN Study Date: 05/10/2018 Page 2 of 2 04:14 PM [id number]
--- NOTE | 2018-05-10 18:51 | PDGENHP ---
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 Woke up day after steve feeling off. He exercised and afterwards was having trouble verbalizing his thoughts. He took a nap and symptoms seemed to improve slightly. Then later had trouble writing. His noticed some confusion yesterday that seemed to wax and wane a bit. Denies having weakness or numbness on one side of his body. He is not on anticoagulation. Denies head trauma. No fevers, chills, chest pain, dyspnea, abdominal pain, rashes. 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 In the ED, MRI of his brain revealed an acute/subacute left posterior frontoparietal infarct. Neurology was consulted. 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 - Social History Smoking Status: Never smoked Alcohol Use: None Drug Use: None Additional social history: , lives with and children. 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 Is very active. Lives in [place]. Review of Systems Review of Systems: ROS: 10pt was reviewed & negative except for what was stated in HPI & below Physical Exam Physical Exam: Temp Pulse Resp BP Pulse Ox 37 C 78 16 127/79 H 95 05/10/18 18:41 05/10/18 18:41 05/10/18 18:41 05/10/18 18:41 05/10/18 18:41 Constitutional: appears nourished, not in pain, other (appears frustrated) Eyes: PERRL, anicteric sclera, EOMI Ears, Nose, Mouth, Throat: moist mucous membranes, hearing normal, ears appear normal, no oral mucosal ulcers Cardiovascular: regular rate and rhythym, systolic murmur (right upper sternal border), No diastolic murmur, No JVD, No edema Respiratory: no respiratory distress, no rales or rhonchi, clear to auscultation Gastrointestinal: normoactive bowel sounds, soft, non-tender abdomen, no palpable masses Genitourinary: no bladder fullness, no bladder tenderness Skin: warm, normal color, no rashes or abrasions, no fluctuance, no induration, other (no skin findings of endocarditis), No mottled Musculoskeletal: full muscle strength, no muscle tenderness, normal joint ROM, no joint effusions Neurologic: AAOx3, sensation intact bilaterally, CN II-XII Intact, other ( dysarthria), No weakness, No numbness Psychiatric: other (labile mood, sometimes inattentive) Lab Data & Imaging Review 05/10/18 13:30 05/10/18 12:22 WBC 7.00 10^3/uL (3.80-9.50) 05/10/18 13:30 RBC 4.78 10^6/uL (4.40-6.38) 05/10/18 13:30 Hgb 14.7 g/dL (13.7-17.5) 05/10/18 13:30 POC Hgb 15.3 gm/dL (13.7-17.5) 05/10/18 12:28 Hct 44.8 % (40.0-51.0) 05/10/18 13:30 POC Hct 45 % (40-51) 05/10/18 12:28 MCV 93.7 fL (81.5-99.8) 05/10/18 13:30 MCH 30.8 pg (27.9-34.1) 05/10/18 13:30 MCHC 32.8 g/dL (32.4-36.7) 05/10/18 13:30 RDW 14.6 % (11.5-15.2) 05/10/18 13:30 Plt Count 228 10^3/uL (150-400) 05/10/18 13:30 MPV 10.9 fL (8.7-11.7) 05/10/18 13:30 Neut % (Auto) 58.2 % (39.3-74.2) 05/10/18 13:30 Lymph % (Auto) 31.3 % (15.0-45.0) 05/10/18 13:30 [place] % (Auto) 7.7 % (4.5-13.0) 05/10/18 13:30 Eos % (Auto) 1.9 % (0.6-7.6) 05/10/18 13:30 Baso % (Auto) 0.6 % (0.3-1.7) 05/10/18 13:30 Nucleat RBC Rel Count 0.0 % (0.0-0.2) 05/10/18 13:30 Absolute Neuts (auto) 4.08 10^3/uL (1.70-6.50) 05/10/18 13:30 Absolute Lymphs (auto) 2.19 10^3/uL (1.00-3.00) 05/10/18 13:30 Absolute Monos (auto) 0.54 10^3/uL (0.30-0.80) 05/10/18 13:30 Absolute Eos (auto) 0.13 10^3/uL (0.03-0.40) 05/10/18 13:30 Absolute Basos (auto) 0.04 10^3/uL (0.02-0.10) 05/10/18 13:30 Absolute Nucleated RBC 0.00 10^3/uL (0-0.01) 05/10/18 13:30 Immature Gran % 0.3 % (0.0-1.1) 05/10/18 13:30 Immature Gran # 0.02 10^3/uL (0.00-0.10) 05/10/18 13:30 ESR Cancelled 05/10/18 18:03 POC Sodium 141 mEq/L (135-145) 05/10/18 12:28 Sodium 137 mEq/L (135-145) 05/10/18 12:22 POC Potassium 4.3 mEq/L (3.3-5.0) 05/10/18 12:28 Potassium 4.6 mEq/L (3.5-5.2) 05/10/18 12:22 POC Chloride 101 mEq/L (97-110) 05/10/18 12:28 Chloride 104 mEq/L (97-110) 05/10/18 12:22 Carbon Dioxide 25 mEq/l (22-31) 05/10/18 12:22 Anion Gap 8 mEq/L (6-14) 05/10/18 12:22 POC BUN 20 mg/dL (7-23) 05/10/18 12:28 BUN 21 mg/dL (7-23) 05/10/18 12:22 Creatinine 1.0 mg/dL (0.7-1.3) 05/10/18 12:22 POC Creatinine 1.0 mg/dL (0.7-1.3) 05/10/18 12:28 Estimated GFR > 60 05/10/18 12:22 Glucose 84 mg/dL (70-100) 05/10/18 12:22 POC Glucose 87 mg/dL (70-100) 05/10/18 12:28 Calcium 9.5 mg/dL (8.5-10.4) 05/10/18 12:22 POC Troponin I 0.00 ng/mL (0.00-0.08) 05/10/18 12:26 Visualized and Interpreted EKG results: Yes EKG additional interpertation: ECG: NSR, no ischemic changes, prolonged FL (211 , previously 200), prolonged QTc Assessment & Plan Assessment: 47yo M with history of bicuspid aortic valve s/p urgent AV replacement 11/2017 due to AV endocarditis (Cardiobacterium hominis) complicated by conduction disturbances, severe AI, dilated cardiomyopathy, and septic emboli (right lung, mesentery) presents with 3 days of "not thinking clearly" and difficulty writing and speaking found to have late acute/subacute cerebral infarct. Plan: 1. Acute ischemic CVA: Involving left posterior frontoparietal areas. Continues to have dysarthria and difficulty with writing. Concern that this was embolic from cardiac origin. CTA head/neck without etiology. TTE without thrombus, normal AV gradients, and no visible vegetations. - Neurology consulted - Discussed with cardiology, likely proceed with ANAND in AM. - Telemetry. May need cardiac event monitor (LINQ) as at risk for arrhythmias with prior cardiac history - PT/OT/CERTIFICATION OFFICER consulted - Ordered A1c and lipid panel for completeness - Start aspirin 81mg daily 2. H/o bicuspid AV s/p AVR: Normal functioning valve on surface echo. 3. H/o AV endocarditis: Completed 6 weeks of antibiotics (ceftriaxone). No signs of systemic infection at present. Blood cultures drawn in ED. His FL interval is slightly longer than in November but otherwise no significant conduction change. Will monitor on telemetry. 4. Nonischemic cardiomyopathy: LVEF 53% on today's echo. He is clinically not in heart failure. Continue metoprolol. VTE ppx: SCDs Diet: NPO at midnight Code: full Dispo: Admit
[2018-05-10] MEDS: METOPROLOL TARTRATE 25 MG TAB PO SCH (20:57)
[2018-05-11 06:15] LABS: PLATELET COUNT 205 10^3/uL (150-400)
[2018-05-11] MEDS: METOPROLOL TARTRATE 25 MG TAB PO SCH ×2 (08:14→21:24)
[2018-05-11] MEDS: ASPIRIN 81 MG CHEWABLE TAB PO SCH (08:14)
[2018-05-11] MEDS ORDERED: NS 1,000 ML IV ONE (10:32)
--- NOTE | 2018-05-11 11:08 | PDCARCONS ---
Cardiology Consult Reason for Consult: Recent CVA. Chief Complaint: Confusion. Requesting Physician: Dr. Philip Willett. History of Present Illness: This is a 47-year-old male who is well known to me from my outpatient clinic. I 1st met him in November of 2017. At that time he presented with subacute bacterial endocarditis affecting his [place] bicuspid valve. He had a fairly advanced case with evidence of an extensive abscess involving the aortic root extending into the mitral/aortic inter valvular fibrosa. Ultimately, the bacteria was identified as cardiobacterium hominis. During that hospitalization he underwent cardiovascular surgery with placement of a composite graft, repair of the abscess with a pericardial patch and over-sewing of the left atrial appendage. He did well postoperatively. He had no identified arrhythmias. He underwent an extensive course of antibiotics. I saw him in the office on March 06. At that time, he was doing well. He had an echocardiogram done on April 26 to establish a new baseline following his cardiovascular surgery. That study demonstrated a normal functioning composite graft with a normal ejection fraction. He was admitted to the hospital yesterday with signs and symptoms of a new CVA. He states he began feeling poorly the day after [place]. At that time he had difficulty coordinating his thoughts and had difficulty performing basic tasks. He had no focal neurologic deficits however noted significant difficulties with word finding and managing numbers. Because of these symptoms he came to the hospital. He underwent an acute evaluation with a head CT scan which was unremarkable. He had a CTA of the great vessels and carotid arteries which was also unremarkable. Ultimately an MRI scan demonstrated a new right frontal/parietal lesion consistent with an acute/subacute infarct. An echocardiogram performed yesterday did not suggest any new vegetations or mural thrombi related to wall motion abnormalities. In talking to him about this he states that the only medication he has been taking at home is low-dose metoprolol. He has not been taking aspirin. He denies any recent use of [id number]-[id number]-extsmik medications. He notes no fever, chills or sweats. He notes no recent weight loss. He denies palpitations that would suggest atrial arrhythmias. He does note that occasionally he has a sensation of a hollow sensation in his chest. He has not had any dizziness or lightheadedness. History Information - Allergies/Home Medication List Allergies/Adverse Reactions: No Known Allergies Allergy (Unverified 11/13/17 23:14) Home Medications: Metoprolol Tartrate [Lopressor 25 mg (*)] 25 mg PO BID 05/10/18 [Last Taken ] I have personally reviewed and updated: family history, medical history, social history, surgical history Past Medical History: Bicuspid aortic valve with subacute bacterial endocarditis as described above status post composite graft placement, aortic root debridement, placement of a pericardial patch and over-sewing of the left atrial appendage. - Surgical History Additional surgical history: Aortic valve replacement surgery as described above. 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 He is and accompanied by his . They have children together. Physical Exam Physical Exam: Temp Pulse Resp BP Pulse Ox 37.1 C 67 17 119/78 94 05/11/18 07:28 05/11/18 07:28 05/11/18 07:28 05/11/18 07:28 05/11/18 07:28 Constitutional: no apparent distress, appears nourished, not in pain Eyes: PERRL, anicteric sclera, EOMI Ears, Nose, Mouth, Throat: moist mucous membranes, hearing normal, ears appear normal, no oral mucosal ulcers Cardiovascular: regular rate and rhythym, no murmur, rub, or gallop, other ( Midline sternotomy incision which is well approximated and healed), No edema Peripheral Pulses: 2+: carotid (R), carotid (L) Respiratory: no respiratory distress, no rales or rhonchi, clear to auscultation Gastrointestinal: normoactive bowel sounds, soft, non-tender abdomen, no palpable masses Genitourinary: no bladder fullness, no bladder tenderness Skin: warm, normal color, no rashes or abrasions, no fluctuance, no induration, No mottled Musculoskeletal: full muscle strength, no muscle tenderness, normal joint ROM, no joint effusions Psychiatric: interacting appropriately, not anxious, not encephalopathic, thought process linear Lymph, Heme, Immunologic: no cervical LAD, no supraclavicular LAD Lab and Imaging 05/11/18 05:40 05/11/18 05:40 WBC 6.00 10^3/uL (3.80-9.50) 05/11/18 05:40 RBC 4.58 10^6/uL (4.40-6.38) 05/11/18 05:40 Hgb 13.8 g/dL (13.7-17.5) 05/11/18 05:40 POC Hgb 15.3 gm/dL (13.7-17.5) 05/10/18 12:28 Hct 41.1 % (40.0-51.0) 05/11/18 05:40 POC Hct 45 % (40-51) 05/10/18 12:28 MCV 89.7 fL (81.5-99.8) 05/11/18 05:40 MCH 30.1 pg (27.9-34.1) 05/11/18 05:40 MCHC 33.6 g/dL (32.4-36.7) 05/11/18 05:40 RDW 14.6 % (11.5-15.2) 05/11/18 05:40 Plt Count 205 10^3/uL (150-400) 05/11/18 05:40 MPV 10.5 fL (8.7-11.7) 05/11/18 05:40 Neut % (Auto) 57.5 % (39.3-74.2) 05/11/18 05:40 Lymph % (Auto) 30.8 % (15.0-45.0) 05/11/18 05:40 [place] % (Auto) 8.2 % (4.5-13.0) 05/11/18 05:40 Eos % (Auto) 2.8 % (0.6-7.6) 05/11/18 05:40 Baso % (Auto) 0.5 % (0.3-1.7) 05/11/18 05:40 Nucleat RBC Rel Count 0.0 % (0.0-0.2) 05/11/18 05:40 Absolute Neuts (auto) 3.45 10^3/uL (1.70-6.50) 05/11/18 05:40 Absolute Lymphs (auto) 1.85 10^3/uL (1.00-3.00) 05/11/18 05:40 Absolute Monos (auto) 0.49 10^3/uL (0.30-0.80) 05/11/18 05:40 Absolute Eos (auto) 0.17 10^3/uL (0.03-0.40) 05/11/18 05:40 Absolute Basos (auto) 0.03 10^3/uL (0.02-0.10) 05/11/18 05:40 Absolute Nucleated RBC 0.00 10^3/uL (0-0.01) 05/11/18 05:40 Immature Gran % 0.2 % (0.0-1.1) 05/11/18 05:40 Immature Gran # 0.01 10^3/uL (0.00-0.10) 05/11/18 05:40 ESR Cancelled 05/10/18 18:03 POC Sodium 141 mEq/L (135-145) 05/10/18 12:28 Sodium 137 mEq/L (135-145) 05/11/18 05:40 POC Potassium 4.3 mEq/L (3.3-5.0) 05/10/18 12:28 Potassium 4.4 mEq/L (3.5-5.2) 05/11/18 05:40 POC Chloride 101 mEq/L (97-110) 05/10/18 12:28 Chloride 106 mEq/L (97-110) 05/11/18 05:40 Carbon Dioxide 25 mEq/l (22-31) 05/11/18 05:40 Anion Gap 6 mEq/L (6-14) 05/11/18 05:40 POC BUN 20 mg/dL (7-23) 05/10/18 12:28 BUN 25 mg/dL (7-23) H 05/11/18 05:40 Creatinine 1.0 mg/dL (0.7-1.3) 05/11/18 05:40 POC Creatinine 1.0 mg/dL (0.7-1.3) 05/10/18 12:28 Estimated GFR > 60 05/11/18 05:40 Glucose 100 mg/dL (70-100) 05/11/18 05:40 POC Glucose 87 mg/dL (70-100) 05/10/18 12:28 Calcium 9.2 mg/dL (8.5-10.4) 05/11/18 05:40 POC Troponin I 0.00 ng/mL (0.00-0.08) 05/10/18 12:26 Triglycerides 58 mg/dL (40-150) 05/11/18 05:40 Cholesterol 192 mg/dL (140-200) 05/11/18 05:40 Cholesterol Risk Factr 0.6 (0.2-1.0) 05/11/18 05:40 LDL Cholesterol, Calc 130 mg/dL (70-100) H 05/11/18 05:40 LDL Risk Factor 1.0 (0.2-1.0) 05/11/18 05:40 VLDL Cholesterol 12 mg/dL (8-25) 05/11/18 05:40 Non-HDL Cholesterol 142 mg/dL (90-129) H 05/11/18 05:40 HDL Cholesterol 50 mg/dL (40-65) 05/11/18 05:40 LDL/HDL Ratio 2.61 RATIO (1.00-3.64) 05/11/18 05:40 Cholesterol/HDL Ratio 3.84 RATIO (1.00-4.97) 05/11/18 05:40 A/P Assessment: This is a 47-year-old male with a cardiovascular history as noted above who is status post clinical presentation with SBE in November of this year. He is status post surgical debridement of the aortic root with placement of a composite valve /root graft, pericardial patch repair of a root abscess and over-sewing of the left atrial appendage. Postoperatively he had unremarkable course and a baseline echocardiogram which was performed on April 26 was unremarkable. He presents now with clinical signs and symptoms of a new CVA. He has experienced a right frontal what appears to be an embolic phenomena. Fortunately his symptoms are fairly mild at the present time. The exact etiology is not entirely clear. Workup of the great vessels thus far is unremarkable for significant atherosclerosis. His surface echocardiogram done yesterday did not suggest significant valvular vegetations or left ventricular wall motion abnormalities. Telemetry has not indicated any arrhythmias. He gives no signs or symptoms that would suggest recurrent endocarditis although this is on the differential diagnosis. Atrial arrhythmias are on the differential diagnosis. His left atrial appendage was oversewn at the time of his surgical procedure which does not eliminate the risk of stroke related to atrial arrhythmias however does significantly reduce the likelihood. He has no known hypercoagulability that I am aware of. Plan: 1. He has been started on low-dose aspirin. 2. His metoprolol has been continued. 3. I will plan for a transesophageal echocardiogram at some point today. 4. Neurology has been consulted. 5. We will plan to continue telemetry monitoring during this hospitalization. It may be prudent to consider implantation of a subcutaneous security monitor prior to hospital discharge. 6. Further recommendations will be made pending completion of the above evaluation. Review of Systems Review of Systems: - Review of Systems Constitutional: no symptoms reported EENTM: no symptoms reported Respiratory: no symptoms reported Cardiac: no symptoms reported Gastrointestinal/Abdominal: no symptoms reported Genitourinary: no symptoms Musculoskelatal: no symptoms Skin: no symptoms Neurological: see HPI Hematologic/Lymphatic: no symptoms reported Immunologic/allergic: no symptoms reported All Other Systems: Reviewed and Negative
[2018-05-11] MEDS ORDERED: PROPOFOL 200 MG/20 ML VIAL ONE ×2 (11:14)
--- NOTE | 2018-05-11 11:38 | NEUROPROG ---
Assessment: HOSPITAL NEUROLOGY CONSULT REQUESTING: Juan Daniel Zuñiga MD REASON: stroke HPI: 47 year old man presented to the ED yesterday with language dysfunction of 3 days duration. 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 He underwent aortic valve replacement and root/ascending aorta replacement with homograft (YOLIS appendage also oversewn). He was treated with IV ceftriaxone via PICC. He has done well thereafter. Takes metoprolol. Not taking ASA. 3 days [employer] he noted difficulty with language. Having trouble getting words out and processing complex tasks. He is having difficulty with reading and writing. He denies any weakness, sensory loss, vision changes, gait change, vertigo, incoordination, hearing change, BUENROSTRO, neck pain, fevers, CP, SOB. No recent illnesses/sick contacts. ROS: As per the HPI, otherwise a complete 12 point ROS was performed and is negative ALLERGIES AND MEDS: As recorded in the EMR - reviewed and reconciled PFSH: As per the intake H&P by Dr. Zuñiga from yesterday EXAM: VS reviewed in EMR GEN: WDWN laying in NAD HEENT: NCAT, sclera anicteric, conjunctiva not injected, MMM, oropharynx clear, no scalp tenderness NECK: supple, nontender, no meningismus CV: RRR s1 s2 wo m/r/c/g. Carotid pulses 2+ wo bruit NEURO: MS: awake, alert, oriented to all spheres. Speech nondysarthric. He has mild expressive > receptive aphasia. Follows commands. Attends to both sides. Recent/remote memory grossly intact. Mood euthymic. Good fund of knowledge. CN: pupils 3mm round and reactive. Unable to visualize fundi. VFF. Primary gaze centered. Full ocular motility. Facial sensation preserved. Face symmetric. Hearing grossly intact to finger rub. Palatoglossal movements intact. Shoulder shrug and head turn strong. MOTOR: normal bulk/tone. No adventitial movements. Full power throughout. SENSORY: intact to all modalities throughout. No extinction. COORD: no ataxia FN/HS. Miriam preserved. REFLEX: plantars down. No clonus. DTRS 2/4. GAIT: rises unassisted. Narrow base. Normal gait. NIHSS 1 (language) DATA REVIEW: Labs reviewed in EMR PERSONALLY INTERPRETED RESULTS AND DATA: MRI brain wo - scattered areas of cortical subacute infarct in the left MCA territory CTA head/neck - patent vessels LDL 130 A1c pending TTE - no masses, no valve veg, EF 53%, paradoxical septal motion IMPRESSION AND RECOMMENDATIONS: Patient with prior spontaneous aortic valve endocarditis/abscess s/p valve replacement now with LMCA ischemic stroke manifest as mild aphasia. His pattern of stroke is certainly concerning for proximal embolism, and with clean CTA and known aortic valve replacement, would be very suspect for a cardioembolic source. His YOLIS was oversewn during his AVR, but that does not totally eliminate the risk of intracardiac clot formation. He is nontoxic, afebrile and without leukocytosis, so lower suspicion for another cardiac infection, but screening blood cultures drawn. May need to check stroke-in- young labs if ANAND negative. Will continue ASA 81mg daily for now. Statin for goal LDL < 70 Maintain normotension Goal normoglycemia with A1c < 6.5, avoid hypoglycemia Telemetry monitoring ANAND today Blood cultures x 2 drawn and pending PT/OT/SA[employer]ISH[employer] MACHINE Stroke education Further recommendation pending ANAND result Objective: Vital Signs Temp Pulse Resp BP Pulse Ox 37.1 C 67 17 119/78 94 05/11/18 07:28 05/11/18 07:28 05/11/18 07:28 05/11/18 07:28 05/11/18 07:28 Laboratory Results 05/11/18 05:40 05/11/18 05:40 Allergies/Adverse Reactions: No Known Allergies Allergy (Unverified 11/13/17 23:14)
[2018-05-11] MEDS ORDERED: ALBUTEROL 3 ML DEYVIAL IH PRN (12:07)
[2018-05-11] MEDS ORDERED: ONDANSETRON 4 MG/2 ML VIAL IVP PRN (12:07)
[2018-05-11] MEDS ORDERED: NALOXONE HCL 0.4 MG/ML INJ IVP PRN (12:07)
--- NOTE | 2018-05-11 12:07 | PDANEPAE ---
ANE History of Present Illness ANAND ANE Past Medical History - Cardiovascular History Hx Hypertension: No Hx Arrhythmias: No Hx Chest Pain: No Hx Coronary Artery / Peripheral Vascular Disease: No Hx CHF / Valvular Disease: Yes Hx Palpitations: No - Pulmonary History Hx COPD: No Hx Asthma/Reactive Airway Disease: No Hx Recent Upper Respiratory Infection: No Hx Oxygen in Use at Home: No Hx Sleep Apnea: No - Endocrine History Hx Diabetes: No - Chronic Pain History Chronic Pain: No ANE Review of Systems Review of Systems: ANE Patient History - Allergies Allergies/Adverse Reactions: No Known Allergies Allergy (Unverified 11/13/17 23:14) - Home Medications Home Medications: Metoprolol Tartrate [Lopressor 25 mg (*)] 25 mg PO BID 05/10/18 [Last Taken ] - Smoking Hx Smoking Status: Never smoked - Alcohol Use Alcohol Use: None ANE Labs/Vital Signs - Labs Result Diagrams: 05/11/18 05:40 05/11/18 05:40 - Vital Signs Blood Pressure: 105/73 Heart Rate: 72 Respiratory Rate: 12 O2 Sat (%): 97 Height: 177.8 cm Weight: 83.915 kg ANE Physical Exam - Airway Neck exam: FROM Mallampati Score: Class 2 Mouth exam: normal dental/mouth exam - Pulmonary Pulmonary: clear to auscultation - Cardiovascular Cardiovascular: regular rate and rhythym - ASA Status ASA Status: III ANE Anesthesia Plan Anesthesia Plan: GA with mask
--- NOTE | 2018-05-11 12:07 | POSTANESTH ---
Post Anesthetic Evaluation Cardiovascular Status: Normal, Stable Respiratory Status: Normal, Stable Level of Consciousness/Mental Status: Mildly Sleepy, Arousable Pain Control: Adequate, Prn Tx Ordered Nausea/Vomiting Control: Adequate, Prn Tx Ordered Complications Possibly Related to Anesthesia: None Noted
--- NOTE | 2018-05-11 12:38 | HOSPPROG ---
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 Plan: 1. Acute ischemic CVA: Involving left posterior frontoparietal areas. Continues to have dysarthria and difficulty with writing. Concern that this was embolic from cardiac origin. CTA head/neck without etiology. TTE without thrombus, normal AV gradients, and no visible vegetations. - ANAND performed this AM shows vegetation per cardiology Dr. Prince, awaiting official report - Consulted ID and CT Surgery for further evaluation and management given new finding of vegetation above, will f/u recommendations - Neurology consulted - Continue aspirin 81mg daily, will start Atorvastatin 40 mg qd - PT/OT/SEAM HAMMERER consulted 2. H/o bicuspid AV s/p AVR: Normal functioning valve on surface echo. 3. H/o AV endocarditis: Completed 6 weeks of antibiotics (ceftriaxone). No signs of systemic infection at present. Blood cultures drawn in ED. His IA interval is slightly longer than in November but otherwise no significant conduction change. Management of newly found vegetation as above. 4. Nonischemic cardiomyopathy: LVEF 53% on today's echo. He is clinically not in heart failure. Continue metoprolol. VTE ppx: SCDs Diet: NPO Code: full Dispo: Pending clinical course Subjective: Patient reports some improvement in word finding difficulties but still having trouble Objective: Vital Signs Temp Pulse Resp BP Pulse Ox 37.1 C 69 14 99/79 L 97 05/11/18 07:28 05/11/18 12:26 05/11/18 12:26 05/11/18 12:26 05/11/18 12:26 Laboratory Results 05/11/18 05:40 05/11/18 05:40 - Physical Exam Constitutional: no apparent distress Eyes: PERRL Ears, Nose, Mouth, Throat: moist mucous membranes Cardiovascular: regular rate and rhythym, systolic murmur Respiratory: no respiratory distress Skin: warm Musculoskeletal: full muscle strength Neurologic: AAOx3 Psychiatric: interacting appropriately ICD10 Worksheet Patient Problems: Problems Problem Status Onset Stroke Acute Acute blood loss anemia Acute Aortic valve endocarditis Acute Ascending aorta enlargement Acute Bicuspid aortic valve Acute CHF exacerbation Acute Elevated troponin Acute Epigastric pain Acute Hyperkalemia Acute Nonischemic dilated cardiomyopathy Acute S/P ascending aortic replacement Acute ~11/15/17 Status 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
[2018-05-11] MEDS ORDERED: VANCOMYCIN 1.5 GM in NS 250 ML IV ONE (14:00)
--- NOTE | 2018-05-11 14:19 | ECHO ---
[email or web address] [id number] Main: [phone] Fax: Transesophageal Echocardiography Name: ALISSON CALLAHAN MR#: [id number] Study Date: 05/11/2018 Study Time: 11:39 AM Date of : 1970 Age: 47 year(s) Height: ( ) Weight: ( ) BSA: Gender: Male Examination: ANAND Indication: TIA, Eval for vegetation. Hx of AVR Image Quality: Contrast: Requested by: Alisson Prince Heart Rate: Rhythm: BP: / Procedure Staff Analytics Intern: Jude Armenta RDCS Reading Physician: Alisson Prince MD Requesting Provider: ANAND Exam Details Conclusions: Normal size left ventricle. Normal global systolic LV function. The ejection fraction is visually estimated to be 55 %. Mild mitral valve regurgitation is present. There is mild prolapse of the posterior leaflet of the mitral valve. There is a 3 mm x 8 mm mobile echodensity adherent to the ventricular side of the non coronary cusp of the aortic valve . The entirety of the aortic root especially the area adjacent to the anterior leaflet of the mitral valve is abnormally thickened. Additionally, the annulus on the ventricular side appears "shaggy. " These findings suggest endocarditis. Measurements: Chambers Valvular Assessment AV/MV Valvular Assessment TV/PV Normal Normal Normal Name Value Range Name Value Range Name Value Range Visual EF: 55 % Additional Measurements: Findings: Left Ventricle: Normal size left ventricle. Normal global systolic LV function. The ejection fraction is visually estimated to be 55 %. Patient: ALISSON CALLAHAN Study Date: 05/11/2018 Page 1 of 2 11:39 AM Right Ventricle: Normal size right ventricle. Normal RV function. Left Atrium: The left atrium is normal in size. No atrial septal aneurysm. Right Atrium: The right atrium is normal in size. Mitral Valve: The mitral valve is normal in appearance and function. Mild mitral valve regurgitation is present. There is mild prolapse of the posterior leaflet of the mitral valve. Aortic Valve: There is a 3 mm x 8 mm mobile echodensity adherent to the ventricular side of the non coronary cusp of the aortic valve . The entirety of the aortic root especially the area adjacent to the anterior leaflet of the mitral valve is abnormally thickened. Additionally, the annulus on the ventricular side appears "shaggy. " These findings suggest endocarditis.The aortic valve is a homograft bioprosthesis. Tricuspid Valve: The tricuspid valve is normal in appearance and function. There is no tricuspid valve regurgitation. Pulmonic Valve: The pulmonic valve is normal in appearance and function. Aorta: The aorta is normal. No dilatation of the aorta. l1n (No Signature Object) Patient: ALISSON CALLAHAN Study Date: 05/11/2018 Page 2 of 2 11:39 AM [id number]
--- NOTE | 2018-05-11 14:59 | GCON ---
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 HISTORY OF PRESENT ILLNESS: The patient is a 47-year-old male whose previous medical history is notable for the followin.Subacute bacterial aortic valve endocarditis secondary to Cardiobacterium, November 2017: Patient originally presented in early November with abdominal pain and vomiting. He was found to have an abnormal EKG, indeterminate troponin, cardiomegaly, and physical exam findings concerning for aortic valve endocarditis. He underwent an abdominal CT at that time, which showed haziness of the left abdominal mesentery concerning for possible septic emboli. A transthoracic echocardiogram showed a bicuspid aortic valve and possible valvular vegetation with anular abscess and torrential aortic valve insufficiency. Subsequently, he underwent a ANAND, revealing bicuspid aortic valve with a noncoronary cusp vegetation and anular abscess. On November 15, he underwent urgent replacement of the aortic valve, aortic root, and ascending aorta with a 24 mm homograft. He also had debridement and a bovine pericardial patch repair of the anular abscess. He underwent evacuation of bilateral pleural effusions and prophylactic suture ligation of the left atrial appendage. A followup transthoracic echo showed normal prosthetic valve function. Infectious Disease was consulted, and the patient ultimately grew Cardiobacterium hominis after 5 days in his blood cultures. He was treated with ceftriaxone 2 g IV daily for 6 weeks. Stop date was December 27. Of note, patient did not follow up in our clinic, as he had [employer] insurance, and saw Dr. Hilary Murray. The patient states he changed insurance, as he wanted to see Dr. Prince, his commercial fisherman. He saw Dr. Prince in the office most recently on March 06, 2018, where he was doing quite well with no residual concerns. He did have a followup echocardiogram at that time, but I do not have those results. Regarding his present issues, the patient states that he has been in his excellent state of health until the day after Karen, when he exercised for approximately 30 minutes, lifting weights and isometric exercise, and afterward felt "loopy." He states that he was mixing up words and having word-finding difficulties. No dysarthria, no focal weakness, no headache. He states he just "felt out of it." He denies any shaking chills or fevers. His became concerned and brought him in to our hospital for further evaluation and treatment yesterday afternoon. Given his neurologic concerns, he underwent a brain MRI that showed a "late acute/subacute left posterior frontoparietal infarct in the posterior division of the left middle cerebral artery territory. There was no acute hemorrhage. This prompted a cardiology consultation, given the patient's previous history of endocarditis. A transthoracic echocardiogram was performed that revealed ejection fraction of 53%. There was no obvious valvular abnormality. A ANAND was performed by Dr. David Prince, which revealed a 2 x 8 to 3 x 8 mm vegetation on the noncoronary cusp of the aortic valve homograft with a possible anular or valvular ring abscess without obvious leak. There was also noted to be a possible Lambl excrescence versus vegetation on the mitral valve. The patient has not been started on antibiotics yet. I am now asked to assist in his management. Speaking with the patient today, he tells me that he is still having word- finding problems. He denies any shaking chills, but overall, feels tired and not himself. The patient was in [place], [place], over [place], but no unusual exposures. He has a dog, who is healthy. No unpasteurized foods. He does have a hot tub, but no other water exposure. No other unusual exposures. He has not been to the dentist in a year and a half. No or GI manipulations recently. He states that his appetite has been good. Energy level excellent. No drenching night sweats. No skin lesions, lumps or bumps, or other. REVIEW OF SYSTEMS: Aside from what is listed above with his neurologic symptoms , 10 systems are reviewed and all are negative. PREVIOUS MEDICAL HISTORY: Outlined above. ALLERGIES: No known drug allergies. MEDICATIONS: Presently include Lipitor 40 mg p.o. daily, aspirin 81 mg p.o. daily, metoprolol 25 mg p.o. b.i.d., Zofran. SOCIAL HISTORY: The patient lives in [place] with his and 2 grown children. They have a hot tub. No tobacco, rare alcohol, no illicit substances. He has a dog, who is healthy. No unpasteurized foods, as outlined above, or unusual exposures. 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 FAMILY HISTORY: Noncontributory. PHYSICAL EXAM: VITAL SIGNS: T-current 37.1, heart rate is 84, blood pressure 99/79, 97% on room air. GENERAL: Well-nourished, well-developed gentleman, lying in bed, no apparent distress. HEENT: Atraumatic, normocephalic. Pupils equal, round, reactive to light. Extraocular movements are intact. No conjunctival injection or icterus. The patient does have what looks like a small subconjunctival hemorrhage on his lower eyelid on the right. No other lesions noted. No sinus process tenderness or discharge from the nares. Mucous membranes are moist. No oral lesions noted. Dentition in excellent repair. NECK: Trachea is midline. No cervical or supraclavicular lymphadenopathy. CARDIOVASCULAR: Patient has a well-healed median sternotomy incision. No click. S1, S2. There is an audible systolic ejection murmur heard best at the right and left upper sternal borders. No audible rubs or extra heart sounds. LUNGS: Clear to auscultation bilaterally. No rales, rhonchi, or wheeze. ABDOMEN: Soft. No organomegaly or tenderness to palpation. EXTREMITIES: No clubbing, cyanosis, or edema. There are no Janeway lesions, Osler nodes, splinter hemorrhages, or other peripheral stigmata of endocarditis. NEUROLOGIC: Patient is alert and oriented x3, but is having problems saying the year. He is moving all 4 extremities. No sensory or motor deficits on exam. Cranial nerves 2 through 12 intact to exam. LABORATORY DATA: Blood cultures x2 are pending. Previous blood cultures grew Cardiobacterium hominis after 5 days of incubation in November. White blood cell count of 6, hematocrit 41, platelet count of 205. BUN and creatinine 25 over 1.0. Liver functions have not been sent. Troponin of 0. Previous Cardiobacterium isolate is susceptible to ceftriaxone with AYLIN of less than 0.5. RADIOGRAPHIC DATA: As outlined above. Neck CT angio also shows no dissection, stenosis or clot. 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 The patient has early prosthetic valve endocarditis (less than 1 year out); potential pathogens include coagulase-negative Staphylococcus, Staphylococcus aureus, verses other. Recurrent infection with Cardiobacterium is also possible. Thankfully, he is hemodynamically stable, with no emergent need for surgery. He has not had any additional neurologic events. PLAN: 1. Will draw 1 additional blood culture set, which will be 3 in total. Have asked microbiology lab to hold the isolates for at least 10 days. 2. Will start antibiotics in the form of vancomycin, ceftriaxone, and low-dose synergistic daily gentamicin. Have asked hospitalist to start maintenance IV fluid, and will follow creatinine vigilantly in the setting of concomitant gentamicin and vancomycin. Will need to follow vancomycin troughs closely as well. 3. Cardiothoracic Surgery has been consulted, and Dr. Franklin will see the patient in short order. Thank you very much for consulting Infectious Diseases. Will continue to follow this patient with you. Over 90 minutes was spent with this patient today. /[id number]/MODL MTDD
--- NOTE | 2018-05-11 15:41 | PDMN ---
Medical Necessity Medical necessity: Pt meets inpt criteria per MD order and [facility] M-83, Stroke: Ischemic, 2 days. 47 y/o presented w/difficulty writing and speaking/ verbalizing thoughts, some confusion admitted w/acute ischemic CVA, MRI shows left posterior frontoparietal infarct. Hx bicuspid aortic valve s/p urgent AV replacement 11/2017 due to AV endocarditis complicated by severe AI, dilated cardiomyopathy, and septic emboli. Neurology and cardiology consults, ANAND findings today suggest endocarditis. ID consult, IV ABX's initiated, cultures pending, cardiothoracic surg consult pending. Est LOS>2MN for ongoing eval/ management of ischemic CVA and probable prosthetic valve endocarditis.
[2018-05-11] MEDS: D5W IV SCH (17:50)
[2018-05-11] MEDS: GENTAMICIN SULFATE IV SCH (17:50)
[2018-05-11] MEDS: NS 1,000 ML IV SCH (18:05)
[2018-05-11] MEDS: VANCOMYCIN HCL/NORMAL SALINE 250 ML IV SCH (21:57)
[2018-05-12] MEDS: VANCOMYCIN HCL/NORMAL SALINE 250 ML IV SCH ×3 (05:38→21:32)
[2018-05-12] MEDS: ASPIRIN 81 MG CHEWABLE TAB PO SCH (08:21)
[2018-05-12] MEDS: METOPROLOL TARTRATE 25 MG TAB PO SCH ×2 (08:21→21:32)
--- NOTE | 2018-05-12 08:35 | PCMIDPN ---
Addendum entered and electronically signed by Alecia Davies MD 05/12/18 18: 18: Called micro lab: NOTHING growing at 48 hours. Suspect same organism as previous , as would expect SHIRT HEMMER or Staph aureus to have grown by now. If cultures remain no growth tomorrow, will likely narrow antibiotics to Ceftriaxone alone. Original Note: Assessment/Plan: 1. Aortic prosthetic valve endocarditis with embolic CVA to MCA in patient with previous aortic valve endocarditis with ring abscess secondary to Cardiobacterium: Continue vancomycin, ceftriaxone, and low-dose gentamicin pending culture results. Vancomycin trough this afternoon. Gentamicin trough before 3rd dose. Await blood culture results. Patient is clinically stable. Continue hydration. Discussed case with Lois Jenkins today as well. 05/12/18 08:36 Subjective: Patient is doing well this morning. Is having no additional neurologic issues, and word-finding problems are resolving. No headache. Objective: Vancomycin 1 g IV q.8 hours day 2 Ceftriaxone 2 g IV daily day 2 Gentamicin 250 mg IV daily day 2 No fevers Vital Signs Temp Pulse Resp BP Pulse Ox 36.5 C 65 14 109/78 97 05/12/18 08:08 05/12/18 08:21 05/12/18 08:08 05/12/18 08:21 05/12/18 08:08 Laboratory Results 05/11/18 05:40 05/12/18 05:30 05/11/18 05/12/18 05/13/18 05:59 05:59 05:59 Intake Total 1772 Balance 1772 ESR Cancelled 05/10/18 18:03 C-Reactive Protein 17.3 mg/L (<10.0) H 05/11/18 05:40 4 sets of blood cultures are pending - Physical Exam General Appearance: alert, no apparent distress, other (Small sub conjunctival hemorrhage right lower eyelid) EENT: pharynx normal, No thrush Respiratory: lungs clear Cardiac/Chest: systolic murmur Abdomen: non-tender, soft Skin: No embolic lesions Neuro/Psych: no motor/sensory deficits, oriented x 3 ICD10 Worksheet Patient Problems: Problems Problem Status Onset Stroke Acute Acute blood loss anemia Acute Aortic valve endocarditis Acute Ascending aorta enlargement Acute Bicuspid aortic valve Acute CHF exacerbation Acute Elevated troponin Acute Epigastric pain Acute Hyperkalemia Acute Nonischemic dilated cardiomyopathy Acute S/P ascending aortic replacement Acute ~11/15/17 Status 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
[2018-05-12] MEDS ORDERED: ATORVASTATIN CALCIUM 40 MG TAB PO SCH (09:00)
--- NOTE | 2018-05-12 09:16 | SOAPPROG ---
[facility] Progress Note Assessment/Plan: Assessment: 47-year-old male with a history of a bicuspid aortic valve initially presenting in November with subacute bacterial endocarditis as result of cardiobacterium hominis. 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 He underwent surgical treatment with debridement of the aortic root, pericardial repair of an abscess in the mitral/aortic inter valvular fibrosa and placement of a homograft. He did well for many months following the procedure. He presents now with evidence of a new right frontal/parietal stroke. Fortunately, he does not have significant neurologic deficits. He has had some word and number finding difficulties. His transesophageal echocardiogram which was performed yesterday indicates a new vegetation on the non coronary cusp of the aortic valve as well as likely infection of the root. Fortunately the valve itself appears to be functioning normally. Interestingly, he has not had a prodrome of constitutional symptoms and is not presenting with significant leukocytosis. His inflammatory markers are, however, slightly elevated. He has been started on broad-spectrum antibiotics. He appears hemodynamically stable with no indications of worsening of his baseline first-degree AV block or recurrent embolic phenomena. Recommendations: 1. I will defer to Infectious Disease regarding management of his antibiotics. 2. Cardiovascular surgery has been consulted. They will see him today. 3. Given his clinical presentation with a new CVA and the appearance of his valve by echocardiography indicating probable involvement of the aortic root I think that he will likely require surgical therapy in addition to residential possibly suppressive antibiotics. 4. We will continue to monitor him on telemetry and perform daily ECGs. 5. There is no role for systemic anticoagulation at the present time. 6. We will follow along with you. 05/12/18 09:10 Subjective: He is doing well today. He has not had any fever, chills or sweats. He notes that from a neurologic perspective he feels that he is improving. On telemetry he has been in sinus rhythm. He does have first-degree AV block however there have not been any episodes of higher degree AV block or other arrhythmias. Thus far, cultures are negative. He is being followed by infectious disease and is currently on triple drug antibiotic therapy. Objective: Vital Signs Temp Pulse Resp BP Pulse Ox 36.5 C 65 14 109/78 97 05/12/18 08:08 05/12/18 08:21 05/12/18 08:08 05/12/18 08:21 05/12/18 08:08 Laboratory Results 05/11/18 05:40 05/12/18 05:30 05/11/18 05/12/18 05/13/18 05:59 05:59 05:59 Intake Total 1772 Balance 1772 Physical Exam - Physical Exam General Appearance: WD/WN, alert, no apparent distress EENT: PERRL/EOMI, normal ENT inspection, pharynx normal, TMs normal Neck: non-tender, full range of motion, supple, normal inspection Respiratory: chest non-tender, lungs clear, normal breath sounds Cardiac/Chest: normal peripheral pulses, regular rate, rhythm, systolic murmur ( 1/6 systolic ejection murmur), other (Midline sternotomy incision well healed) Peripheral Pulses: 2+: carotid (R), carotid (L), femoral (R), femoral (L), dorsalis-pedis (R), dorsalis-pedis (L) Abdomen: normal bowel sounds, non-tender, soft Male Genitalia: deferred Rectal: deferred Back: Normal inspection Skin: normal color, warm/dry Lymphatic: no adenopathy Extremities: normal range of motion, non-tender, normal inspection, normal capillary refill Neuro/Psych: no motor/sensory deficits, alert, normal mood/affect, oriented x 3 ICD10 Worksheet Patient Problems: Problems Problem Status Onset Stroke Acute Acute blood loss anemia Acute Aortic valve endocarditis Acute Ascending aorta enlargement Acute Bicuspid aortic valve Acute CHF exacerbation Acute Elevated troponin Acute Epigastric pain Acute Hyperkalemia Acute Nonischemic dilated cardiomyopathy Acute S/P ascending aortic replacement Acute ~11/15/17 Status 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
--- NOTE | 2018-05-12 09:59 | ASMTCMCOM ---
CM Note CM Note Notes: 47yo male admitted after CVA. He has a Hx of AVR 11/28-endocarditis, Severe AI-septic emboli, AAA repair. Patient lives with hhis in [place]. Therapies to eval for discharge needs. CM to follow. Date Signed: 05/12/2018 09:58 AM Electronically Signed By:Mary Humphries LCSW
--- NOTE | 2018-05-12 11:20 | NEUROPROG ---
Assessment: BACKGROUND 05/11: 47 year old man presented to the ED yesterday with language dysfunction of 3 days duration. 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 He underwent aortic valve replacement and root/ascending aorta replacement with homograft (YOLIS appendage also oversewn). He was treated with IV ceftriaxone via PICC. He has done well thereafter. Takes metoprolol. Not taking ASA. 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 Having trouble getting words out and processing complex tasks. He is having difficulty with reading and writing. He denies any weakness, sensory loss, vision changes, gait change, vertigo, incoordination, hearing change, BUENROSTRO, neck pain, fevers, CP, SOB. No recent illnesses/sick contacts. INTERVAL HISTORY 05/12: No new events. Language still problematic. On ABX now with TTE finding of aortic valve/root vegetation. EXAM: VS reviewed in EMR GEN: WDWN sitting in NAD MS: awake, alert, oriented to all spheres. Speech nondysarthric. He has mild expressive > receptive aphasia. Follows commands. Attends to both sides. Mood euthymic. CN: pupils 3mm round and reactive. VFF. Primary gaze centered. Full ocular motility. Facial sensation preserved. Face symmetric. Hearing grossly intact to finger rub. Palatoglossal movements intact. Shoulder shrug and head turn strong. MOTOR: normal bulk/tone. No adventitial movements. Full power throughout. SENSORY: intact to all modalities throughout. No extinction. COORD: no ataxia FN/HS. Miriam preserved. REFLEX: plantars down. No clonus. DTRS 2/4. GAIT: rises unassisted. Narrow base. Normal gait. NIHSS 1 (language) DATA REVIEW: Labs reviewed in EMR PERSONALLY INTERPRETED RESULTS AND DATA: MRI brain wo - scattered areas of cortical subacute infarct in the left MCA territory CTA head/neck - patent vessels LDL 130 A1c pending TTE - no masses, no valve veg, EF 53%, paradoxical septal motion ANAND - aortic valve vegeation with involvement of annulus, thickening of aortic root IMPRESSION AND RECOMMENDATIONS: Patient with prior spontaneous aortic valve endocarditis/abscess s/p valve replacement now with LMCA ischemic stroke manifest as mild aphasia. His pattern of stroke is certainly concerning for proximal embolism, and with clean CTA and known aortic valve replacement, would be very suspect for a cardioembolic source. ANAND shows aortic valve vegetation compelling for recurrent bacterial endocarditis. 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 Recall PRN. Objective: Vital Signs Temp Pulse Resp BP Pulse Ox 36.5 C 65 14 109/78 97 05/12/18 08:08 05/12/18 08:21 05/12/18 08:08 05/12/18 08:21 05/12/18 08:08 Laboratory Results 05/11/18 05:40 05/12/18 05:30 05/11/18 05/12/18 05/13/18 05:59 05:59 05:59 Intake Total 1772 Balance 1772 Allergies/Adverse Reactions: No Known Allergies Allergy (Unverified 11/13/17 23:14)
[2018-05-12] MEDS ORDERED: GADOBUTROL 10 ML VIAL IVP ONE (12:03)
--- NOTE | 2018-05-12 12:12 | HOSPPROG ---
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 Plan: 1. 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 - ANAND performed on 05/11 shows 3 mm x 8 mm mobile echodensity adherent to ventricular side of the non coronary cusp of the aortic valve, entirety of the aortic root especially the area adjacent to the anterior leaflet of the mitral valve is abnormally thickened, the annulus on the ventricular side appears "shaggy", these findings suggest endocarditis - Consulted ID and CT Surgery yesterday - ID started patient on Ceftriaxone, Vancomycin, and Gentamicin, awaiting blood culture data - CT surgery, Dr. 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 H/o bicuspid AV s/p AVR: Normal functioning valve on surface echo. Management as above 3. H/o AV endocarditis: Completed 6 weeks of antibiotics (ceftriaxone). Management of newly found vegetation as above. 4. Nonischemic cardiomyopathy: LVEF 53% on admission echo. He is clinically not in heart failure. Continue metoprolol. VTE ppx: SCDs Diet: NPO Code: full Dispo: Pending clinical course Subjective: Patient upset this morning about plan for surgery Objective: Vital Signs Temp Pulse Resp BP Pulse Ox 36.5 C 65 14 109/78 97 05/12/18 08:08 05/12/18 08:21 05/12/18 08:08 05/12/18 08:21 05/12/18 08:08 Laboratory Results 05/11/18 05:40 05/12/18 05:30 05/11/18 05/12/18 05/13/18 05:59 05:59 05:59 Intake Total 1772 Balance 1772 - Physical Exam Constitutional: no apparent distress Eyes: PERRL Ears, Nose, Mouth, Throat: moist mucous membranes Cardiovascular: regular rate and rhythym, systolic murmur Respiratory: no respiratory distress Skin: warm Musculoskeletal: full muscle strength Neurologic: AAOx3 Psychiatric: interacting appropriately ICD10 Worksheet Patient Problems: Problems Problem Status Onset Stroke Acute Acute blood loss anemia Acute Aortic valve endocarditis Acute Ascending aorta enlargement Acute Bicuspid aortic valve Acute CHF exacerbation Acute Elevated troponin Acute Epigastric pain Acute Hyperkalemia Acute Nonischemic dilated cardiomyopathy Acute S/P ascending aortic replacement Acute ~11/15/17 Status 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
[2018-05-12] MEDS: D5W IV SCH (15:42)
[2018-05-12] MEDS: GENTAMICIN SULFATE IV SCH (15:42)
[2018-05-12] MEDS: NS 1,000 ML IV SCH (17:07)
[2018-05-13] MEDS: VANCOMYCIN HCL/NORMAL SALINE 250 ML IV SCH ×3 (05:22→21:36)
[2018-05-13 07:25] LABS: PLATELET COUNT 189 10^3/uL (150-400)
--- NOTE | 2018-05-13 08:21 | CPEKG ---
Test Reason : OPEN Blood Pressure : / mmHG Vent. Rate : 090 BPM Atrial Rate : 137 BPM P-R Int : 154 ms QRS Dur : 169 ms QT Int : 410 ms P-R-T Axes : 000 164 -01 degrees QTc Int : 502 ms Atrial fibrillation Right bundle branch block Both atrial fibrillation and RBBB are new in comparison to prior PVCs are noted Confirmed by Leonardo Louis ([id number]) on 05/13/2018 8:20:40 AM Referred By: Confirmed By:Leonardo Louis
--- NOTE | 2018-05-13 09:23 | PDCARPN ---
Cardiology Progress Note Chief Complaint: No cardiovascular complaints today. Questions about the results of the cardiac MRI Assessment/Plan: Assessment: Patient is a 47 y/o male with history of bicuspid aortic valve with subacute bacterial endocarditis (Cardiobacterium hominis) with dilated aortic root status post debridement of the aortic root, aortic homograft, and pericardial repair of noted abscess in the mitral and aortic intervalvular region back in November 2017. At that time, it was noted the patient had septic emboli to right lung and abdominal mesentery. On May 10, the patient presented to the ER at [facility] with two day history of confusion and word finding difficulty. Brain MRI from 05-10-18 with late acute/subacute left posterior frontal/parietal infarct in the posterior division of the MCA. Echocardiogram (surfact) from with grossly normal left ventricular systolic function (53%), and a normal appearing bioprosthetic AVR. Given the history of endocarditis, transesophageal echocardiography was performed on 05-11-18 with a 3 mm X 8 mm mobile echodensity noted to the ventricular side of the non coronary cusp of the bioprosthetic aortic valve with abnormal thickening to the aortic root in the vicinity of the anterior leaflet of the mitral valve (suggestive of endocarditis). On 05-10-18, ESR was noted to be elevated (no repeat assessment) . Neurology and Infectious Disease are currently following the patient, and given the history of AVR with root graft, CT surgery is following the patient, and seeing the patient today, post repeat cardiac MRI from yesterday which noted a 0.8 mm X 1.8 mm non enhancing focus along the non coronary cusp. No paraaortic abscess was noted. No active cardiovascular complaints were noted today. No chest pains or pressure. No PND or orthopnea. Neurologic deficits have reportedly resolved. I have concerns about the ECG changes that have been noted - specifically, first degree AVB at the time of admission, a bout of atrial fibrillation with RBBB pattern, and return to sinus rhythm with first degree AVB today. Uncertain what this represents, but given the location of the possible infection , his rhythm must be monitored closely. Plan: (1) Ongoing IV antibiotic coverage as per ID (2) Neurology saw the patient and signed off, pending CT surgery and patient decisions (3) Given the embolic nature of this course, surgical intervention is an option. There is no evidence of abscess, which would more clearly delineate a need for surgery. (4) Cardiology will continue to follow this patient over the course of this hospital stay Subjective: No cardiovascular complaints Reviewed/Discussed With: family, multidisciplinary team Objective: Vital Signs (8 Hrs) Temp Pulse Resp BP Pulse Ox 05/13/18 07:50 36.6 C 68 17 116/60 100 05/13/18 04:00 80 19 96 Intake/Output (24 Hrs) 05/12/18 05/13/18 05/14/18 05:59 05:59 05:59 Intake Total 1772 4214 Balance 1772 4214 Intake: Oral (ml) 400 1000 IV Intake (ml) 1372 IV Infused (ml) 3214 Gentamicin Sulfate 250 mg 100 In D5w 100 ml @ 106.25 mls/hr IV Q24H ALEJANDRA Rx#: [id number] Ns 1,000 ml @ 150 mls/hr 2314 IV CONT ALEJANDRA Rx#: [id number] Vancomycin HCl/Normal 750 Saline 250 ml @ 250 mls/ hr IV Q8H ALEJANDRA Rx#: [id number] cefTRIAXone 2 gm In Ns 50 50 ml @ 100 mls/hr IV Q24H ALEJANDRA Rx#:[id number] Other: Weight 83.915 kg Intake Quantity Yes Sufficient Number of Voids Toilet 3 2 Number of Stools Toilet 1 Result Diagrams: 05/13/18 06:45 05/13/18 06:45 EKG: ECG today with sinus rhythm and first degree AVB (similar to ECG which was performed at the time of admission). ECG yesterday with atrial fibrillation and RBBB - both of these findings were new in comparison to the admission ECG. Telemetry: Normal sinus rhythm currently noted Echocardiogram: As per note above with comments on both ANAND and TTE - Physical Exam Constitutional: WDWN, healthy appearing, no apparent distress Eyes: PERRL, EOMI Ears, Nose, Mouth, Throat: moist mucous membranes Cardiovascular: regular rate and rhythm, no murmurs, no rubs, no gallops Peripheral Pulses: 2+: dorsalis-pedis (R), dorsalis-pedis (L) Respiratory: clear to auscultate bilat, no crackles Gastrointestinal: normoactive bowel sounds Skin: no rashes, no edema Musculoskeletal: no muscular tenderness Neurologic: AAOx3, CN II-XII grossly intact Psychiatric: cooperative, interactive, following commands ICD10 Worksheet Patient Problems: Problems Problem Status Onset Stroke Acute Acute blood loss anemia Acute Aortic valve endocarditis Acute Ascending aorta enlargement Acute Bicuspid aortic valve Acute CHF exacerbation Acute Elevated troponin Acute Epigastric pain Acute Hyperkalemia Acute Nonischemic dilated cardiomyopathy Acute S/P ascending aortic replacement Acute ~11/15/17 Status 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
[2018-05-13] MEDS: METOPROLOL TARTRATE 25 MG TAB PO SCH ×2 (10:13→21:36)
--- NOTE | 2018-05-13 10:56 | PCMIDPN ---
Assessment/Plan: Assessment: Embolic CVA as well as abnormal echocardiogram showing vegetations on prosthetic aortic valve. Patient with a history of cardio bacterium endocarditis in November. Status post aortic valve replacement as well as adam annular debridement of [place] valve abscess. No growth on microbiologic blood cultures at this point. Reviewed surgical recommendations. Plan to continue current regimen of vancomycin, gentamicin and ceftriaxone. Gentamicin trough is within range. Plan: 1. Continue current regimen of antibiotics at current doses. 2. Follow-up on pending micro cultures. 3. Follow clinically for new symptoms. 05/13/18 16:44 Subjective: States I am doing okay all things considered. He is vigorous, asks pertinent questions regarding his microbiology results, and laughs in conversation. Pt is from [place]. IAntionette, am scribing for, and in the presence of, Thiago Suero MD. Thiago Perez MD, personally performed the services described in this documentation, as scribed by Antionette Carter in my presence, and it is both accurate and complete. Objective: Vital Signs Temp Pulse Resp BP Pulse Ox 36.6 C 72 17 134/77 H 100 05/13/18 07:50 05/13/18 10:13 05/13/18 07:50 05/13/18 10:13 05/13/18 07:50 Laboratory Results 05/13/18 06:45 05/13/18 06:45 05/12/18 05/13/18 05/14/18 05:59 05:59 05:59 Intake Total 1772 4214 Balance 1772 4214 ESR Cancelled 05/10/18 18:03 C-Reactive Protein 17.3 mg/L (<10.0) H 05/11/18 05:40 Microbiology: 05/10/18 Blood cx 2/2 sets, NGTD. 05/11/18 Blood cx 2/2 sets, NGTD. - Physical Exam General Appearance: alert, no apparent distress EENT: No scleral icterus Cardiac/Chest: regular rate, rhythm Skin: No rash, No embolic lesions Neuro/Psych: oriented x 3 - Line/s PIV Lines: No drainage, No erythema ICD10 Worksheet Patient Problems: Problems Problem Status Onset Stroke Acute Acute blood loss anemia Acute Aortic valve endocarditis Acute Ascending aorta enlargement Acute Bicuspid aortic valve Acute CHF exacerbation Acute Elevated troponin Acute Epigastric pain Acute Hyperkalemia Acute Nonischemic dilated cardiomyopathy Acute S/P ascending aortic replacement Acute ~11/15/17 Status 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
--- NOTE | 2018-05-13 11:40 | GCON ---
DATE OF CONSULTATION: 05/11/2018 REFERRING PHYSICIAN: Niki Patient seen at the request of Dr. Prince with the patient's permission. IMPRESSION: 1. Right frontal lobe infarct due to embolization of cardiac origin. 2. Complex history of previous Cardiobacterium endocarditis in November at which time I performed a pericardial patch of the dome of the left atrium and non- coronary sinus with subsequent homograft root and Hemiarch for ascending aneurysm, as well with presenting congestive heart failure and mesenteric embolization from Cardiobacterium endocarditis. 3. Question adam-root abscess. 4. Mobile echodensity on the aortic valve without aortic valve incompetence suggesting endocarditis, remote outside chance of thrombus. 5. New onset of right bundle branch block and atrial fibrillation since admission, deeply concerning for invasive infection. RECOMMENDATIONS: I have spent approximately 2 hours talking to the family over the last several days, as well as several hours talking to family members who are physicians in [place], representatives of theirs who our cardiac surgeons at [facility], as well as Dr. Dru Rios at the [facility]. The consensus of opinion is that based on MRI data and review of the echo, there is no clear evidence of perivalvular infectious involvement, although the new onset of right bundle branch since hospitalization is of concern for that. Upon reviewing the MRI of with Dr. Mascorro and Dr. Abreu from Radiology, there is no clear evidence of perivalvular infection; however, there is a density along the noncoronary sinus adjacent to the right atrium that could represent BioGlue, which was used for surgery, but again is not clear evidence for endocarditis. Comparing the MRI to CT scan performed 1 month postoperatively to evaluate his aortic root and ascending aorta post replacement, the thickening has markedly decreased since that time, but clearly these are 2 different modalities and the consensus of review is that this is not clear evidence of infection at this time in a root abscess area. There is a concern of a hypermobile density on the undersurface of the aortic valve and is the most likely source for his presenting stroke. At the present time, cultures are negative, although this organism required 5 days previously to culture out from blood cultures. He has no constitutional symptoms of fevers, chills, weight loss or sweats, and only presented with stroke, but statistically would most likely represent persistence of infection with vegetation. After long discussions with the patient, his , his parents, his father in [place] who is a retired pathologist from [place], chief of cardiac surgery at [place] who is a friend of theirs, Dr. Maciel and Dru Rios at the [facility]. Most people at that point were in favor of continuing antibiotics and observing him in hospital. Given the fact that he has new right bundle and his hypermobile density, I did review with Dr. Dru Rios by phone whom I texted the images of the echo to, who felt that although it did have compelling evidence of adam-root infection, he was concerned about the mobile density and in his practice would likely move toward excising that to prevent additional stroke issues. As an alternative, he suggested anticoagulation with heparin and re-imaging it. I presented all these options to the family: 1. That we proceed with surgery and remove the mobile vegetation and if we find root abscess, proceed with high risk complicated reoperative aortic root and likely outflow tract reconstruction with the anterior leaflet of the mitral valve from the Homograft potentially necessitating a commando procedure. It would be the hopes that all we would find would be a vegetation and we would leave the root alone, but that is one option I offered the family. 2. The second option was that we could help arrange transfer to the [facility] where they would likely offer him the same surgery obviously with more experience in these more complex procedures. 3. The third option is if they were opposed to surgery, is that we would add anticoagulants accepting the increased risk of converting hemorrhagic stroke or making future strokes more complicated, but also potential of if this truly represents thrombus of dissolving that thrombus. Again, it looks more like vegetation, but discussing with Dr. Rios at the [facility], he felt this would be a reasonable approach and what they would do if he were there and refused surgery. Again, his father and there the colleagues at [place] suggested medical therapy in hopes that the embolization would not occur or would not cause a stroke if it were to recur with that approach. I presented all this to the family in detail and they at the present time are deciding whether they want surgery, where they want surgery, or if no surgery if they agree to adding heparin and repeating a ANAND in several days. CHIEF COMPLAINT: A 47-year-old patient well known to me in whom I performed aortic root and pericardial reconstruction of the outflow tract for Cardiobacterium endocarditis in November. He completed antibiotics and had no subsequent concerns. Postop transthoracic echo at that time revealed good functioning valve. A CT scan revealed thickening in that area along the noncoronary sinus where most of the patching and reconstruction had been done, and stable ascending aorta, which had been replaced with an extended Homograft, as well for moderate aortic enlargement and aortopathy at the time of original surgery. He presented with confusion, was found to have a frontal lobe ischemic stroke without hemorrhage, was admitted. ANAND confirmed a mobile density and concerns for thickening and translucency in the periaortic root area predominantly adjacent to the right atrium. PREVIOUS MEDICAL HISTORY: Otherwise insignificant. ALLERGIES: Denied. REVIEW OF SYSTEMS: At the present time, his confusion and stroke symptoms are resolving. MEDICATIONS: On admission were Lipitor, aspirin, metoprolol and Zofran. Please see current MAR for antibiotics and current medications. FAMILY HISTORY: Noncontributory. PHYSICAL EXAMINATION: GENERAL: This is a well-developed, middle-aged gentleman in good physical condition. VITAL SIGNS: Blood pressure is 120/80, pulse 76, respirations 14, temperature is normal. HEENT/NECK: Normocephalic. PERRLA. EOMI. Neck is without bruit or adenopathy. Teeth are in good repair. HEART: Rate is regular with a soft 1/6 systolic murmur. LUNGS: Clear. ABDOMEN: Soft, nontender. Bowel sounds are active. RECTAL/GENITAL: Deferred. NEUROLOGIC: He is grossly intact. Motor and sensory deficits are not noted. Please see neuro evaluation. LABORATORY DATA: White blood cell count is normal. /[id number]/MODL MTDD
--- NOTE | 2018-05-13 12:24 | ASMTCMCOM ---
CM Note CM Note Notes: Checking into [facility] from [place] to [facility]. [employer] $30,294; [facility] [employer] $20,[phone]; [facility] is checking with patient's Ins to see if they might be able to assist with cost. Waiting for their bid before this CM contacts Dr Franklin. Patient's chart has been copied. Possible air transport for Sunday. Date Signed: 05/13/2018 12:23 PM Electronically Signed By:Mary Humphries LCSW
--- NOTE | 2018-05-13 12:58 | NEUROPROG ---
Assessment: Pt seen by my neurolog colleague, Dr. Burnett, yesterday. Please see his note for full details. Called by cardiothoracic surgery with question if if we started heparin for his clot seen on ANAND if this would cause increase risk. Given he possibly has endocarditis as cause of stroke and vegetation in his heart then using heparin generally is not considered to lower stroke risk and actually increases intracerebral hemorrhage risk in patients with endocarditis and recent stroke. My understanding is that it is not 100% certain what the etiology of his cardiac mobile vegetation is from so this certainly complicates the situation. Neurology will sign off but will be happy to become re-involved if needed. - 35 min spent with patient and his family answering questions as well as discussing case with Dr. Franklin. Objective: Vital Signs Temp Pulse Resp BP Pulse Ox 37.0 C 66 18 115/77 100 05/13/18 12:00 05/13/18 12:00 05/13/18 12:00 05/13/18 12:00 05/13/18 12:00 Laboratory Results 05/13/18 06:45 05/13/18 06:45 05/12/18 05/13/18 05/14/18 05:59 05:59 05:59 Intake Total 1772 4214 Balance 1772 4214 Allergies/Adverse Reactions: No Known Allergies Allergy (Unverified 11/13/17 23:14)
--- NOTE | 2018-05-13 12:59 | HOSPPROG ---
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 Plan: 1. 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 - ANAND performed on 05/11 shows 3 mm x 8 mm mobile echodensity adherent to ventricular side of the non coronary cusp of the aortic valve, entirety of the aortic root especially the area adjacent to the anterior leaflet of the mitral valve is abnormally thickened, the annulus on the ventricular side appears "shaggy", these findings suggest endocarditis - Cardiology, ID and CT Surgery consulted - ID started patient on Ceftriaxone, Vancomycin, and Gentamicin, awaiting blood culture data - CT surgery, Dr. Franklin, has been consulted, he has discussed case with CT surgeons who are friend's of patient's family associated with [facility] , Dr. Rios at [facility], consensus of opinion is that there is no clear evidence of perivalvular infectious involvement, however there is a density along the noncoronary sinus adjacent to R atrium that could represent BioGlue which was used for surgery. There is concern for a hypermobile density on undersurface f aortic valve and is most likely source of stroke. Cultures have remained negative but this organism (Cardiobacterium endocarditis) required 5 days previously to culture from blood. Patient also has a new RBBB. Dr Rios was concerned about mobile density and would likely move toward AC with heparin and re-imaging it. Dr. Franklin has presented following options to family: 1. Proceed with surgery and remove mobile vegetation, if they find root abscess, proceed with high risk complicated reoperative aortic root and likely outflow tract reconstruction, 2. Arrange transfer to [facility] where they would likely offer same surgery with more experience in these more complex procedures, 3. If opposed to surgery, add AC accepting the risk of converting hemorrhagic stroke or making future strokes more complicated, but also potential of if this represents a thrombus of dissolving it. Patient and family to decided, whether they want surgery, where, and if no surgery to agree to adding heparin and repeat ANAND in several days. 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 Arrhythmia: First degree AVB noted at time of admission, linh had episode of atrial fibrillation with RBBB pattern, and return to sinus rhythm with first degree AVB today. Cardiology following, they are uncertain what this represents, but given the location of the possible infection, his rhythm must be monitored closely. Continue telemetry. 3. H/o bicuspid AV s/p AVR: Normal functioning valve on surface echo. Management as above 4. H/o AV endocarditis: Completed 6 weeks of antibiotics (ceftriaxone). Management of newly found vegetation as above. 5. Nonischemic cardiomyopathy: LVEF 53% on admission echo. He is clinically not in heart failure. Continue metoprolol. VTE ppx: SCDs Diet: NPO Code: full Dispo: Pending clinical course Subjective: Patient up walking halls this morning Objective: Vital Signs Temp Pulse Resp BP Pulse Ox 37.0 C 66 18 115/77 100 05/13/18 12:00 05/13/18 12:00 05/13/18 12:00 05/13/18 12:00 05/13/18 12:00 Laboratory Results 05/13/18 06:45 05/13/18 06:45 05/12/18 05/13/18 05/14/18 05:59 05:59 05:59 Intake Total 1772 4214 Balance 1772 4214 - Physical Exam Constitutional: no apparent distress Cardiovascular: regular rate and rhythym Respiratory: no respiratory distress Gastrointestinal: No distension Skin: normal color Musculoskeletal: full muscle strength Neurologic: AAOx3 Psychiatric: interacting appropriately ICD10 Worksheet Patient Problems: Problems Problem Status Onset Stroke Acute Acute blood loss anemia Acute Aortic valve endocarditis Acute Ascending aorta enlargement Acute Bicuspid aortic valve Acute CHF exacerbation Acute Elevated troponin Acute Epigastric pain Acute Hyperkalemia Acute Nonischemic dilated cardiomyopathy Acute S/P ascending aortic replacement Acute ~11/15/17 Status 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
--- NOTE | 2018-05-13 15:18 | PDCONSULT ---
Plumber Pipe Fitting Note: Long discussion with the patient and family this afternoon. Ongoing talks to determine what to do - stay at [facility] versus flight to [facility]. workers compensation claims specialist and patient nursing staff were in the room as well. Some degree of concern about the weather (ongoing snow storm outside) and feasibility of transport, should the decision to travel elsewhere be made. Will follow this patient while in house.
--- NOTE | 2018-05-13 15:21 | CPEKG ---
Test Reason : OPEN Blood Pressure : / mmHG Vent. Rate : 060 BPM Atrial Rate : 060 BPM P-R Int : 219 ms QRS Dur : 097 ms QT Int : 415 ms P-R-T Axes : -01 011 067 degrees QTc Int : 415 ms Sinus rhythm Prolonged AR interval Anteroseptal infarct, age indeterminate Confirmed by Leonardo Louis ([id number]) on 05/13/2018 3:20:59 PM Referred By: Confirmed By:Leonardo Louis
--- NOTE | 2018-05-13 15:22 | CPEKG ---
Test Reason : OPEN Blood Pressure : / mmHG Vent. Rate : 063 BPM Atrial Rate : 062 BPM P-R Int : 212 ms QRS Dur : 105 ms QT Int : 413 ms P-R-T Axes : -02 020 071 degrees QTc Int : 423 ms Sinus rhythm Prolonged VT interval Unchanged from prior Confirmed by Leonardo Louis ([id number]) on 05/13/2018 3:21:54 PM Referred By: Confirmed By:Leonardo Louis
[2018-05-13] MEDS: GENTAMICIN SULFATE IV SCH (16:21)
[2018-05-13] MEDS: D5W IV SCH (16:21)
--- NOTE | 2018-05-13 17:45 | ASMTCMCOM ---
CM Note CM Note Notes: Patient and family have decided to go to the [facility] for heart surgery. Dr. Franklin informed. [facility] contacted with patient info. MD-MD Report. [facility] to call back with Rm# and ICU to contact [facility] [phone] with bed#. Patient have filled out contract for [facility] and it was faxed back to them. We will need final reports copied and EMTALA completed. [facility] can fly in AM we need to find out the time for family. Date Signed: 05/13/2018 05:45 PM Electronically Signed By:Mary Humphries LCSW
[2018-05-13] MEDS: NS 1,000 ML IV SCH (19:40)
[2018-05-14] MEDS: NS 1,000 ML IV SCH (04:03)
[2018-05-14 05:01] LABS: PLATELET COUNT 180 10^3/uL (150-400)
[2018-05-14] MEDS: VANCOMYCIN HCL/NORMAL SALINE 250 ML IV SCH ×2 (06:08→11:13)
[2018-05-14 07:29] VITALS: BP 130/77
--- NOTE | 2018-05-14 08:34 | PDCARPN ---
Cardiology Progress Note Chief Complaint: No events overnight. Plans for patient to fly to [place] later today. Assessment/Plan: Assessment: 05-14-18 No cardiovascular complaints. Patient with arrangements to fly to [facility] later today to continue to explore options given the past history of CT surgery and new history of endocarditis with CVA. Long discussions with family about options to address what is currently noted. Blood cultures from 05-10-18 and 05-11-18 have no growth posted as of the generation of this noted. CRP levels continue to climb. No further episodes of pAF have been captured on telemetry. 05-13-18 Patient is a 47 y/o male with history of bicuspid aortic valve with subacute bacterial endocarditis (Cardiobacterium hominis) with dilated aortic root status post debridement of the aortic root, aortic homograft, and pericardial repair of noted abscess in the mitral and aortic intervalvular region back in November 2017. At that time, it was noted the patient had septic emboli to right lung and abdominal mesentery. On May 10, the patient presented to the ER at [facility] with two day history of confusion and word finding difficulty. Brain MRI from 05-10-18 with late acute/subacute left posterior frontal/parietal infarct in the posterior division of the MCA. Echocardiogram (surfact) from with grossly normal left ventricular systolic function (53%), and a normal appearing bioprosthetic AVR. Given the history of endocarditis, transesophageal echocardiography was performed on 05-11-18 with a 3 mm X 8 mm mobile echodensity noted to the ventricular side of the non coronary cusp of the bioprosthetic aortic valve with abnormal thickening to the aortic root in the vicinity of the anterior leaflet of the mitral valve (suggestive of endocarditis). On 05-10-18, ESR was noted to be elevated (no repeat assessment) . Neurology and Infectious Disease are currently following the patient, and given the history of AVR with root graft, CT surgery is following the patient, and seeing the patient today, post repeat cardiac MRI from yesterday which noted a 0.8 mm X 1.8 mm non enhancing focus along the non coronary cusp. No paraaortic abscess was noted. No active cardiovascular complaints were noted today. No chest pains or pressure. No PND or orthopnea. Neurologic deficits have reportedly resolved. I have concerns about the ECG changes that have been noted - specifically, first degree AVB at the time of admission, a bout of atrial fibrillation with RBBB pattern, and return to sinus rhythm with first degree AVB today. Uncertain what this represents, but given the location of the possible infection , his rhythm must be monitored closely. Plan: (1) IV antibiotic coverage should continue (2) Plans for patient to transfer to [facility] later today Subjective: No cardiovascular complaints this morning. No fevers or chills have been appreciated. Objective: Vital Signs (8 Hrs) Temp Pulse Resp BP Pulse Ox 05/14/18 07:28 36.6 C 69 20 130/77 H 97 05/14/18 04:00 59 L 13 97 Intake/Output (24 Hrs) 05/13/18 05/14/18 05/15/18 05:59 05:59 05:59 Intake Total 4214 6437 Balance 4214 6437 Intake: Oral (ml) 1000 2800 IV Intake (ml) 1820 IV Infused (ml) 3214 1817 Gentamicin Sulfate 250 mg 100 In D5w 100 ml @ 106.25 mls/hr IV Q24H ALEJANDRA Rx#: [id number] Ns 1,000 ml @ 150 mls/hr 2314 1817 IV CONT ALEJANDRA Rx#: [id number] Vancomycin HCl/Normal 750 Saline 250 ml @ 250 mls/ hr IV Q8H ALEJANDRA Rx#: [id number] cefTRIAXone 2 gm In Ns 50 50 ml @ 100 mls/hr IV Q24H ALEJANDRA Rx#:[id number] Other: Number of Voids Toilet 2 3 Result Diagrams: 05/14/18 04:45 05/14/18 04:45 Telemetry: sinus rhythm with first degree AVB - Physical Exam Constitutional: WDWN, healthy appearing, no apparent distress Eyes: PERRL, EOMI Ears, Nose, Mouth, Throat: moist mucous membranes Cardiovascular: regular rate and rhythm, pulses symmetric bilat, No systolic murmur Peripheral Pulses: 2+: dorsalis-pedis (R), dorsalis-pedis (L) Respiratory: clear to auscultate bilat, no crackles, no wheezes Gastrointestinal: normoactive bowel sounds Skin: no rashes, warm, no edema Musculoskeletal: no muscular tenderness Neurologic: AAOx3, CN II-XII grossly intact, other (patient continues to have some word finding issues) Psychiatric: cooperative, interactive, following commands ICD10 Worksheet Patient Problems: Problems Problem Status Onset Stroke Acute Acute blood loss anemia Acute Aortic valve endocarditis Acute Ascending aorta enlargement Acute Bicuspid aortic valve Acute CHF exacerbation Acute Elevated troponin Acute Epigastric pain Acute Hyperkalemia Acute Nonischemic dilated cardiomyopathy Acute S/P ascending aortic replacement Acute ~11/15/17 Status 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
[2018-05-14] MEDS: METOPROLOL TARTRATE 25 MG TAB PO SCH (08:52)
--- NOTE | 2018-05-14 09:59 | ASMTLACE ---
LACE Length of stay for Answers: 4-6 days current admission Acuity / Level of Answers: Yes Care: Did the patient have an inpatient admission? Comorbidities - select Answers: Cerebrovascular disease all that apply (CVA, TIA, aneurysms, vasc ular dementia) Connective tissue disease Other Notes: AAAR, Severe AI, AVR # of Emergency department Answers: 3-4 visits in the last 6 months Score: 15 Date Signed: 05/14/2018 09:58 AM Electronically Signed By:Ursula Boles RN
--- NOTE | 2018-05-14 10:01 | ASMTDCNOTE ---
Case Management Discharge Discharge Order Complete? Answers: Yes Patient to Obtain Answers: Other Notes: [facility] Medications Transportation Arranged Answers: Other Notes: [employer] [facility] will Pick (Date 05/14/2018 10:00 AM & Time) EMTALA Complete Answers: Yes Agency/Facility Transfer Answers: Yes Report Printed & Faxed to Receiving Agency Family Notified Answers: Yes Discharge Comments Notes: Patient EMTALA tx to [facility]. MD to MD and RN to RN reports completed. All documents compiled and sent with patient and . [employer] to transport. Date Signed: 05/14/2018 10:01 AM Electronically Signed By:Ursula Boles RN
--- NOTE | 2018-05-14 10:02 | PCMIDPN ---
Assessment/Plan: Assessment: Embolic CVA as well as abnormal echocardiogram showing vegetations on prosthetic aortic valve. Patient with a history of cardio bacterium endocarditis in November. Status post aortic valve replacement as well as adam annular debridement of [place]anga valve abscess. No growth on microbiologic blood cultures at this point. Reviewed surgical recommendations. Plan to continue current regimen of vancomycin, gentamicin and ceftriaxone. Gentamicin trough is within range. Vancomycin trough is a little low but will be transferring to [facility] this afternoon. No adjustment at present. Plan: 1. Continue current regimen of antibiotics at current doses. 2. Follow-up on pending micro cultures. 3. Follow up and communicate new data to Infectious Disease at [facility]. 05/13/18 16:44 05/14/18 13:36 Subjective: Pt has chosen to go to [facility] in [place] for his heart surgery with plans to leave today. Pts family members including his children, , and mother accompany him. Objective: Vital Signs Temp Pulse Resp BP Pulse Ox 36.6 C 69 20 130/77 H 97 05/14/18 07:28 05/14/18 07:28 05/14/18 07:28 05/14/18 07:28 05/14/18 07:28 Laboratory Results 05/14/18 04:45 05/14/18 04:45 05/13/18 05/14/18 05/15/18 05:59 05:59 05:59 Intake Total 4214 6437 Balance 4214 6437 ESR Cancelled 05/10/18 18:03 C-Reactive Protein 17.3 mg/L (<10.0) H 05/11/18 05:40 Microbiology: 05/10/18 Blood cx (2) pending results, NGTD. 05/11/18 Blood cx (2) pending results, NGTD. - Physical Exam General Appearance: alert, no apparent distress Neuro/Psych: oriented x 3 - Line/s PIV Lines: No drainage, No erythema ICD10 Worksheet Patient Problems: Problems Problem Status Onset Acute blood loss anemia Acute Aortic valve endocarditis Acute Ascending aorta enlargement Acute Bicuspid aortic valve Acute CHF exacerbation Acute Elevated troponin Acute Epigastric pain Acute Hyperkalemia Acute Nonischemic dilated cardiomyopathy Acute S/P ascending aortic replacement Acute ~11/15/17 Status 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 Stroke Acute
--- NOTE | 2018-05-14 11:40 | PDDCSUM ---
Discharge Summary Discharge Summary: Date of Admission: 05/10/2018 Date of Discharge: 05/14/2018 Consults: Cardiology, Cardiothoracic Surgery, Infectious Disease Procedures: ANAND, Cardiac MRI, CT Head Followup: Transferring to [facility], Dr. Rios Hospital Course Problem List: 47yo M with history of bicuspid aortic valve s/p urgent AV replacement 11/2017 due to AV endocarditis (Cardiobacterium hominis) complicated by conduction disturbances, severe AI, dilated cardiomyopathy, and septic emboli (right lung, mesentery) presents with 3 days of "not thinking clearly" and difficulty writing and speaking found to have late acute/subacute cerebral infarct. 1. 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 - ANAND performed on 05/11 shows 3 mm x 8 mm mobile echodensity adherent to ventricular side of the non coronary cusp of the aortic valve, entirety of the aortic root especially the area adjacent to the anterior leaflet of the mitral valve is abnormally thickened, the annulus on the ventricular side appears "shaggy", these findings suggest endocarditis - Cardiology, ID and CT Surgery consulted - ID started patient on Ceftriaxone, Vancomycin, and Gentamicin, blood cultures remain negative, patient without fevers/leukocytosis/other infectious symptoms - CT surgery, Dr. Franklin, has been consulted, he has discussed case with CT surgeons who are friend's of patient's family associated with [facility] , Dr. Rios at [facility], consensus of opinion is that there is no clear evidence of perivalvular infectious involvement, however there is a density along the noncoronary sinus adjacent to R atrium that could represent BioGlue which was used for surgery. There is concern for a hypermobile density on undersurface f aortic valve and is most likely source of stroke. Cultures have remained negative but this organism (Cardiobacterium endocarditis) required 5 days previously to culture from blood. Patient also has a new RBBB. Dr Rios was concerned about mobile density and would likely move toward with heparin and re-imaging it. Dr. Franklin has presented following options to family: 1. Proceed with surgery and remove mobile vegetation, if they find root abscess, proceed with high risk complicated reoperative aortic root and likely outflow tract reconstruction, 2. Arrange transfer to [facility] where they would likely offer same surgery with more experience in these more complex procedures, 3. If opposed to surgery, add AC accepting the risk of converting hemorrhagic stroke or making future strokes more complicated, but also potential of if this represents a thrombus of dissolving it. Patient and family have decided to be transferred to [facility] for further evaluation and management. 2. Arrhythmia: First degree AVB noted at time of admission, linh had episode of atrial fibrillation with RBBB pattern, and return to sinus rhythm with first degree AVB today. Cardiology followed, they are uncertain what this represents, but given the location of the possible infection, his rhythm must be monitored closely. Continue telemetry. 3. H/o bicuspid AV s/p AVR: Normal functioning valve on surface echo. Management as above 4. H/o AV endocarditis: Completed 6 weeks of antibiotics (ceftriaxone). Management of newly found vegetation as above. 5. Nonischemic cardiomyopathy: LVEF 53% on admission echo. He is clinically not in heart failure. Continue metoprolol. Time spent on discharge was >35 minutes with >50% of time spent on patient education and counseling.
== END 2018-05-14 11:30 | disposition short-term general hospital (02) | DRG 314 ==
LOC: F2N 19:46 → F3N 05-11 16:26 → F2N 05-11 21:47
PROVIDERS: ADMIT Internal Medicine; ATTEND Internal Medicine
PROC: B245ZZ4 Ultrasonography of Left Heart, Transesophageal (ICD-10-PCS; principal; 2018-05-11)
DX: T82.6XXA Infection and inflammatory reaction due to cardiac valve prosthesis, initial encounter (principal); I33.0 Acute and subacute infective endocarditis; I63.419 Cerebral infarction due to embolism of unspecified middle cerebral artery; I42.0 Dilated cardiomyopathy; I48.91 Unspecified atrial fibrillation; I45.10 Unspecified right bundle-branch block; Z95.2 Presence of prosthetic heart valve; Z82.49 Family history of ischemic heart disease and other diseases of the circulatory system; Z86.19 Personal history of other infectious and parasitic diseases; Z86.79 Personal history of other diseases of the circulatory system
CPT/HCPCS: 82435-PO; 82565-PO; 82947-PO; 84132-PO; 84295-PO; 84484-ER; 84520-PO; 85014-PO; 92507-GN; 92523-GN; 97161-GP; 97166-GO; A9585; J0696; J1580; J2704; J3370; Q9967

== ENCOUNTER 2018-06-12 10:04 | Day surgery (SDC) | payer OTHER ==
[2018-06-12] MEDS ORDERED: MIDAZOLAM 2 MG/2 ML VIAL IVP ONE (10:08)
[2018-06-12] MEDS ORDERED: NS 500 ML IV ONE (10:08)
[2018-06-12] MEDS ORDERED: BENZOCAINE UNIT DOSE SPRAY HURRICAINE MM ONE (10:08)
[2018-06-12] MEDS ORDERED: fentaNYL 100 MCG/2 ML INJ IVP ONE (10:08)
--- NOTE | 2018-06-12 11:39 | ECHO ---
[email or web address] [address] Main: [phone] Fax: Transesophageal Echocardiography Name: TI CALLAHAN MR#: [id number] Study Date: 06/12/2018 Study Time: 10:15 AM Date of : 1970 Age: 47 year(s) Height: ( ) Weight: ( ) BSA: Gender: Male Examination: ANAND Indication: Eval AV Image Quality: Adequate Contrast: Requested by: Ti Prince Heart Rate: Rhythm: BP: / Procedure Staff Food Quality Tester: Luz Iglesias FAISAL Reading Physician: Ti Prince MD Requesting Provider: ANAND Exam Details Conclusions: Normal size left ventricle. Normal global systolic LV function. No regional wall motion abnormality. The mitral valve is normal in appearance. Mild mitral valve regurgitation is present. Trivial prolapse of the posterior leaflet of the mitral valve. The aortic valve is a homograft bioprosthesis. Trivial prosthesis regurgitation. There appear to be 2 small fibrin strands adherent to the LV side of the non-coronary cusp. The aortic root appears thickened. Prior studies have indicated a clear vegetation not appreciated on the present study. The tricuspid valve is normal in appearance and function. Mild tricuspid regurgitation is present. The aorta is normal. Measurements: Chambers Valvular Assessment AV/MV Valvular Assessment TV/PV Normal Normal Normal Name Value Range Name Value Range Name Value Range Additional Measurements: Patient: TI CALLAHAN Study Date: 06/12/2018 Page 1 of 2 10:15 AM Findings: Left Ventricle: Normal size left ventricle. No LV hypertrophy. Normal global systolic LV function. No regional wall motion abnormality. Right Ventricle: Normal size right ventricle. Normal RV function. Left Atrium: The left atrium is normal in size. Left Atrial Appendage: No thrombus in left appendage. Right Atrium: The right atrium is normal in size. Mitral Valve: The mitral valve is normal in appearance. Mild mitral valve regurgitation is present. No mitral stenosis is present. Trivial prolapse of the posterior leaflet of the mitral valve. Aortic Valve: The aortic valve is a homograft bioprosthesis. Normal functioning aortic valve prosthesis. The prosthetic aortic valve is normal. The prosthetic aortic valve regurgitation location is transvalvular. Trivial prosthesis regurgitation. There appear to be 2 small fibrin strands adherent to the LV side of the non-coronary cusp. The aortic root appears thickened. Prior studies have indicated a clear vegetation not appreciated on the present study. Tricuspid Valve: The tricuspid valve is normal in appearance and function. Mild tricuspid regurgitation is present. Pulmonic Valve: The pulmonic valve is normal in appearance and function. Aorta: The aorta is normal. Normal size. Normal size. l1n (No Signature Object) Patient: TI CALLAHAN Study Date: 06/12/2018 Page 2 of 2 10:15 AM [id number]
== END 2018-06-12 13:12 | disposition home or self-care (01) ==
LOC: FCATH 10:04
PROVIDERS: ATTEND Internal Medicine Cardiovascular Disease
PROC: B246ZZ4 Ultrasonography of Right and Left Heart, Transesophageal (ICD-10-PCS; principal; 2018-06-12)
DX: Q23.1 Congenital insufficiency of aortic valve (principal); I77.810 Thoracic aortic ectasia; T82 Complications of cardiac and vascular prosthetic devices, implants and grafts; Z79.82 Long term (current) use of aspirin; Z79.2 Long term (current) use of antibiotics; Z86.79 Personal history of other diseases of the circulatory system; Z95.2 Presence of prosthetic heart valve
CPT/HCPCS: J2250; J3010

== ENCOUNTER 2018-10-02 07:49 | Day surgery (SDC) | payer OTHER ==
[2018-10-02] MEDS ORDERED: BENZOCAINE UNIT DOSE SPRAY HURRICAINE MM ONE (07:52)
[2018-10-02] MEDS ORDERED: fentaNYL 100 MCG/2 ML INJ IVP ONE (07:52)
[2018-10-02] MEDS ORDERED: NS 500 ML IV ONE (07:52)
[2018-10-02] MEDS ORDERED: MIDAZOLAM 2 MG/2 ML VIAL IVP ONE (07:52)
[2018-10-02] MEDS ORDERED: PROPOFOL 200 MG/20 ML VIAL ONE ×2 (08:53)
[2018-10-02] MEDS ORDERED: ATROPINE SULFATE 1 MG/10 ML SYR ONE (08:58)
== END 2018-10-02 11:00 | disposition home or self-care (01) ==
LOC: FCATH 07:49
PROVIDERS: ATTEND Internal Medicine Cardiovascular Disease
PROC: B245ZZ4 Ultrasonography of Left Heart, Transesophageal (ICD-10-PCS; principal; 2018-10-02)
DX: I33.9 Acute and subacute endocarditis, unspecified (principal); Z95.2 Presence of prosthetic heart valve
CPT/HCPCS: J0461; J2704

== ENCOUNTER 2018-10-28 08:12 | Day surgery (SDC) | payer OTHER | END 2018-10-28 11:35 | disposition home or self-care (01) | LOC: FCATH 08:12 ==